=== PATIENT | female | born 1965 | race Caucasian/White ===

== ENCOUNTER 2018-02-10 14:13 | Emergency (ER) | payer BC, MEDICARE, OTHER ==
[~2018-02-10] VITALS: Ht 165.1 cm; Wt 90.7 kg
[~2018-02-10 14:13] MED LIST: ACHD5005 PO; LVF500T; MYCO500T PO; OXYC-12 PO; PROP1TAB77; TACR1CAP2 PO; TRM50T PO; VENL75TA6 PO
[2018-02-10] MEDS ORDERED: LIDOCAINE 2% 20 ML (XYLOCAINE) VIAL INJ ONE (14:45)
--- NOTE | 2018-02-10 14:46 | ED Upper Extremity ---
General Stated Complaint: RT INDEX FINGER LACERATION Source: patient Exam Limitations: no limitations History of Present Illness Date Seen by Provider: Feb 10, 2018 Time Seen by Provider: 14:43 Initial Comments to ER with a laceration to the right pointer finger. She is building a deck and she tripped and fell while carrying a board. She smashed the tip of the right pointer finger in doing this. Onset: just prior to arrival Pain/Injury Location: right 2nd finger Method of Injury: fell Modifying Factors: Worse With Movement Allergies and Home Medications Allergies Coded Allergies: gentamicin (Verified Allergy, Mild, 02/10/18) morphine (Verified Allergy, Mild, 02/10/18) Uncoded Allergies: [id number] (SULFA (SULFONAMIDE ANTIBIOTICS)) (Allergy, Mild, 10/10/09) Home Medications Hydrocodone Bit/Acetaminophen 1 Tab Tablet, 1-2 TAB PO Q6H FOR PAIN Prescribed by: WILLIE FULLER on 06/10/13 0720 Mycophenolate Mofetil 500 Mg Tablet, 500 MG PO BID, (Reported) Tacrolimus Anhydrous 1 Mg Capsule, 2 MG PO BID, (Reported) Tramadol Hcl 50 Mg Tab, 50 MG PO Q4-6HOURS PRN FOR PAIN Prescribed by: WILLIE FULLER on 06/10/13 0720 Venlafaxine Hcl 75 Mg Tablet, 75 MG PO BID, (Reported) Patient Home Medication List Home Medication List Reviewed: Yes Constitutional: see HPI EENTM: see HPI Respiratory: no symptoms reported Cardiovascular: no symptoms reported Genitourinary: no symptoms reported Musculoskeletal: see HPI Skin: no symptoms reported Psychiatric/Neurological: No Symptoms Reported Past [id number]-Cufebl Hx Patient Social History Recent Foreign Travel: No Contact w/Someone Who Travel: No Past Medical History 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 Renal Failure Degenerate Disk Disease, Chronic Back Pain Skin Physical Exam Vital Signs Vital Signs - First Documented 02/10/18 14:35 Temp 98.0 Pulse 163 Resp 14 B/P (MAP) 182/114 (136) Pulse Ox 93 Capillary Refill : General Appearance: WD/WN, no apparent distress HEENT: PERRL/EOMI, normal ENT inspection Neck: non-tender, full range of motion Respiratory: normal breath sounds, no respiratory distress, no accessory muscle use Gastrointestinal: normal bowel sounds, non tender Shoulder: normal inspection, non-tender Elbow/Forearm: normal inspection, non-tender Wrist: Yes normal inspection, Yes non-tender Hand: laceration (there is a 1 cm laceration to the radial side of the right pointer finger looks like a crush injury.) Neurologic/Tendon: normal sensation, normal motor functions Neurologic/Psychiatric: alert, normal mood/affect, oriented x 3 Skin: normal color, warm/dry Procedures/Interventions Wound Location: Upper Extremities Wound Length (cm): 1 Wound's Depth, Shape: linear, sub Q Wound Explored: clean Anesthesia: 1% Lidocaine Volume Anesthetic (ccs): 2 Suture: Ethlion Suture Size: 5-0 Number of Sutures: 3 Layer Closure?: 1 Progress Anesthetized locally with 2% lidocaine without epinephrine Wound scrubbed with chlorhexidine/saline solution. The paronychia was sutured back to the nail using 3 simple interrupted sutures size 5-0 Ethilon. Progress/Results/Core Measures Results/Orders My Orders Orders - CHRISSIE MATTHEWS APRN Finger(S) (02/10/18 14:42) Lidocaine 2% Injection 20 Ml (Xylocaine (02/10/18 14:45) Vital Signs/I&O 02/10/18 14:35 Temp 98.0 Pulse 163 Resp 14 B/P (MAP) 182/114 (136) Pulse Ox 93 Departure Communication (Admissions) she has a peritoneal dialysis patient on immunosuppressants for prior renal transplant. Her with antibiotics prophylactically. Impression Primary Impression: Finger laceration Disposition: 01 HOME, SELF-CARE Condition: Stable Departure-Patient Inst. Decision time for Depature: 15:42 Referrals: [facility] (PCP) Primary Care Physician Patient Instructions: Laceration Repair With Stitches (DC) Add. Discharge Instructions: 11. Return to [facility] 10 days to have the stitches removed. Antibiotics as directed. Scripts Cephalexin (Keflex) 500 Mg Capsule 500 MG PO Q6H, #20 CAP Prov: CHRISSIE MATTHEWS APRN 02/10/18 Images Extremities-Upper 1 - CHRISSIE MATTHEWS APRN Feb 10, 2018 14:46
--- NOTE | 2018-02-10 15:38 | Diagnostic Imaging Report ---
INDICATION: Injury to right second finger. AP, oblique, lateral views of the right second finger are obtained. No fracture or radiopaque foreign body seen. IMPRESSION: Negative right second finger. Dictated by: Dictated on workstation # [id number]
[2018-02-10] MEDS ORDERED: CEPH-507 PO (15:47)
[2018-02-10] MEDS ORDERED: TETANUS,DIPTH,PERTUSS P/F (BOOSTRIX) 0.5 ML VIAL IM ONE ×2 (15:48→16:00)
[2018-02-10 15:53] VITALS: BP 162/71
== END 2018-02-10 15:53 | disposition home or self-care (01) ==
LOC: EDUNIT# 14:13 → ER 14:15
DX: S61.210A Laceration without foreign body of right index finger without damage to nail, initial encounter (principal); Z88.1 Allergy status to other antibiotic agents; Z88.5 Allergy status to narcotic agent; W18.09XA Striking against other object with subsequent fall, initial encounter; W23.0XXA Caught, crushed, jammed, or pinched between moving objects, initial encounter
CPT/HCPCS: 12041; 73140; 90471; 90715

== ENCOUNTER 2018-03-25 09:29 | Emergency (ER) | payer BC, MEDICARE ==
[~2018-03-25] VITALS: Ht 165.1 cm; Wt 90.7 kg
[~2018-03-25 09:29] MED LIST changes: +CEPH-507 PO
--- OUTSIDE RECORDS SUMMARY | 2018-03-25 09:35 | XMS REPORT | Clinical Summary ---
Author Author [facility] Address Unknown Phone Unavailable Care Team Providers Care Verification Clerk Name Role Phone Brent Jarvis MD Unavailable Jessica Portillo RN Unavailable Unavailable Luz Elena Mireles RN Unavailable Unavailable Yolie Chaves MD Unavailable Phu Luevano MD Unavailable Unavailable Monet Samayoa Unavailable Unavailable Lorene Wheat RN Unavailable Unavailable Eligio Antonio MD PCP Layne Lynn MD Unavailable Laura Gamble RN Unavailable Lucia Marmolejo RN Unavailable Kira Lua MD Unavailable Michelle Kent RN Unavailable Paula Morris Unavailable Unavailable Sadaf Carty Unavailable Unavailable Manuela Urias LPN Unavailable Unavailable Yamilet Don Unavailable Unavailable Jaya Villanueva RN Unavailable Annel Sanchez Unavailable Unavailable Lorene Salvador RN Unavailable Unavailable Lennie Espinal Unavailable Bhumika Guillen MD Unavailable Meagan Santos Unavailable Unavailable Alicia Manrique ENGINEERING MODEL MAKER Unavailable Source Comments Some departments are not documenting in the electronic medical record. If you do not see the information that you expected, contact Release of Information in the Health Information Management department at [phone] for further assistance in locating additional records.[facility] Allergies Active Allergy Reactions Severity Noted Date Comments Morphine AGITATION Low 10/16/2015 Sulfa (Sulfonamide RASH High 01/10/2006 Antibiotics) Vancomycin RASH 01/09/2007 Current Medications Prescription Sig. Disp. Refills Start End Date Status Date albuterol (PROAIR HFA) 90 Inhale 2 Puffs by mouth Active mcg/Actuation inhaler Every 6 Hours as needed for Wheezing. tacrolimus XL (ASTAGRAF Take 5 capsules by mouth 180 capsule 11 Active XL) 1 mg daily. 17 capsuleIndications: Kidney replaced by transplant, Encounter for long-term (current) use of high-risk medication carvedilol (COREG) 25 mg Take 25 mg by mouth twice Active tablet daily with meals. Take with food. mycophenolate mofetil Take 500 mg by mouth Active (CELLCEPT) 500 mg tablet twice daily. Take on an empty stomach. ferrous gluconate 324 mg Take 1 tablet by mouth 30 tablet 5 10/13/19 Active (36 mg iron) daily. 18 tabIndications: Iron Deficiency Anemia venlafaxine XR (EFFEXOR Take 150 mg by mouth Active XR) 150 mg capsule daily. Take with food. tiotropium (SPIRIVA WITH Place 18 mcg into inhaler Active HANDIHALER) 18 mcg and inhale into lungs as capsule for inhaler directed daily. calcitriol (ROCALTROL) Take 0.25 mcg by mouth Active 0.25 mcg capsule daily. lisinopril (PRINIVIL, Take 40 mg by mouth Active ZESTRIL) 40 mg tablet daily. amLODIPine (NORVASC) 5 mg Take 5 mg by mouth daily. Active tablet spironolactone Take 100 mg by mouth Active (ALDACTONE) 100 mg tablet daily. Take with food. Active Problems Problem Noted Date UTI (urinary tract infection) 06/11/2017 ANNETTE (acute kidney injury) ([facility]) 06/11/2017 Immunosuppression ([facility]) 04/14/2016 Proteinuria 04/14/2016 Mixed hyperlipidemia 04/14/2016 Chronic congestion of paranasal sinus 04/14/2016 Chronic bronchitis (HCC) 04/14/2016 Chronic rejection of kidney transplant 07/03/2015 Kidney replaced by transplant 07/03/2015 Encounters Date Type Specialty Care Team Description 03/16/2018 Pharmacy Visit 02/21/2018 Ancillary Radiology Outpatient, Radiologist Diagnosis unknown Orders 02/15/2018 Hospital Radiology Encounter 02/06/2018 Telephone Transplant Surgery Jenna Mireles RN Kidney Evaluation 01/31/2018 Telephone Transplant Surgery Jenna Mireles RN Kidney Evaluation 01/27/2018 Telephone Transplant Surgery Jenna Mrieles RN Kidney Evaluation 2018 Telephone Transplant Surgery Marcela Shell Financial/Insurance Questions (Financial Assessment) 01/16/2018 Hospital Lab Bhumika Guillen MD End stage renal disease Encounter (HCC) 01/16/2018 Transplant Transplant Surgery Vince Kim MD Pre- transplant evaluation Evaluation for kidney transplant (Primary Dx) 01/16/2018 Transplant Transplant Surgery Vince Kim MD Pre- transplant evaluation Evaluation Bhumika Guillen MD for end stage renal disease (Primary Dx); Chronic kidney disease, stage V (HCC); ESRD (end stage renal disease) ([facility]); 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, unspecified whether keno terminal operator insulin use (HCC); Screening for HIV (human immunodeficiency virus) 01/16/2018 Telephone Transplant Surgery Marcela Shell Financial/Insurance Questions (Financial Consult) 01/13/2018 Telephone Transplant Surgery Sadaf Huang RN Kidney Recipient Referral from Last 3 Months Social History Tobacco Use Types Packs/Day Years Used Date Current Every Day Smoker Cigarettes 0.5 30 Started: 06/12/1985 Smokeless Tobacco: Current User Alcohol Use Drinks/Week oz/Week Comments Yes 0 Standard 0.0 occassional drinks or equivalent Sex Assigned at Date Recorded Not on file Last Filed Vital Signs Vital Sign Reading Time Taken Blood Pressure 152/89 01/16/2018 12:18 PM CDT Pulse 74 01/16/2018 12:18 PM CDT Temperature 36.7 C (98.1 F) 01/16/2018 12:15 PM CDT Respiratory Rate 16 10/06/2016 8:39 AM DIRECTOR DIABETES Oxygen Saturation 96% 01/16/2018 12:15 PM CDT Inhaled Oxygen - - Concentration Weight 73.8 kg (162 lb 11.2 oz) 01/16/2018 12:15 PM CDT Height 165.1 cm (5' 5") 01/16/2018 12:15 PM CDT Body Mass Index 27.07 01/16/2018 12:15 PM CDT Plan of Treatment Health Maintenance Due Date Last Done Comments PHYSICAL (COMPREHENSIVE) 1973 EXAM PERTUSSIS VACCINE 1977 TETANUS VACCINE 1983 DILATED EYE EXAM 01/18/1984 FOOT EXAM 01/18/1984 PNEUMONIA VACCINE (DM) 01/18/1984 CERVICAL CANCER SCREENING 01/18/1996 BREAST CANCER SCREENING 2006 COLORECTAL CANCER 01/18/2016 SCREENING SHINGLES RECOMBINANT 01/18/2016 VACCINE (1 of 2) INFLUENZA VACCINE 06/05/2018 HBA1C 07/19/2018 01/16/2018, 10/13/2017, 09/12/2012 HIV SCREENING Completed 01/16/2018 Results * GENERAL RAD CHEST EXTERNAL IMAGING (02/15/2018) Narrative This order has been auto finalized and does not contain a result. * BLOOD TYPE CONFIRMATION - ORDER ONLY IF REQUESTED BY LAB (01/16/2018 3:41 PM) Component Value Ref Range ABO/RH(D) A POS Antigen Information A1 antigen Pos, Specimen Performing Laboratory Blood MAIN LAB [address] [place] [id number] * ABO/RH(D) (01/16/2018 3:30 PM) Component Value Ref Range ABO/RH(D) A POS Antigen Information A1 antigen Pos, Specimen Performing Laboratory Blood MAIN LAB [address] [place] [address] * URINALYSIS, MICROSCOPIC (01/16/2018 3:30 PM) Component Value Ref Range WBCs,UA 2-10 0 - 2 /HPF RBCs,UA 2-10 0 - 3 /HPF MucousUA TRACE Squamous Epithelial Cells 5-10 0 - 5 Specimen Performing Laboratory Urine MAIN LAB [address] [place] [address] * URINALYSIS DIPSTICK (01/16/2018 3:30 PM) Component Value Ref Range Color,UA YELLOW Turbidity,UA CLEAR CLEAR-CLEAR Specific [place]-Urine 1.011 1.003 - 1.035 pH,UA 8.0 5.0 - 8.0 Protein,UA 2+ (A) NEG-NEG Glucose,UA 1+ (A) NEG-NEG Ketones,UA NEG NEG-NEG Bilirubin,UA NEG NEG-NEG Blood,UA NEG NEG-NEG Urobilinogen,UA NORMAL NORM-NORMAL Nitrite,UA NEG NEG-NEG Leukocytes,UA NEG NEG-NEG Urine Ascorbic Acid, UA NEG NEG-NEG Specimen Performing Laboratory Urine MAIN LAB [address] [place] [address] * PHENCYCLIDINES-URINE RANDOM (01/16/2018 3:30 PM) Component Value Ref Range Phencyclidine (PCP) NEG NEG-NEG Comment: RESULTS WERE OBTAINED BY IMMUNOASSAY AND ARE PRESUMPTIVE ONLY. POSITIVE INDICATES THE PRESENCE OF SUBSTANCE WITH CHARACTERISTICS SIMILAR TO DRUG-DRUG CLASS OR METABOLITE IN CONC. EQUAL TO OR EXCEEDING VALUES LISTED. PHENCYCLIDINE (PCP)25 NG/ML Specimen Performing Laboratory Urine [facility] LAB [address] [place] [address] * OPIATES-URINE RANDOM (01/16/2018 3:30 PM) Component Value Ref Range Opiates-Urine NEG NEG-NEG Comment: RESULTS WERE OBTAINED BY IMMUNOASSAY AND ARE PRESUMPTIVE ONLY. POSITIVE INDICATES THE PRESENCE OF SUBSTANCE WITH CHARACTERISTICS SIMILAR TO DRUG-DRUG CLASS OR METABOLITE IN CONC. EQUAL TO OR EXCEEDING VALUES LISTED. [id number] NG/ML Specimen Performing Laboratory Urine [facility] LAB [address] [place] [phone] * COCAINE-URINE RANDOM (01/16/2018 3:30 PM) Component Value Ref Range Cocaine-Urine NEG NEG-NEG Comment: RESULTS WERE OBTAINED BY IMMUNOASSAY AND ARE PRESUMPTIVE ONLY. POSITIVE INDICATES THE PRESENCE OF SUBSTANCE WITH CHARACTERISTICS SIMILAR TO DRUG-DRUG CLASS OR METABOLITE IN CONC. EQUAL TO OR EXCEEDING VALUES LISTED. COCAINE 300 NG/ML Specimen Performing Laboratory Urine [facility] LAB [address] [place] [id number] * CANNABINOIDS-URINE RANDOM (01/16/2018 3:30 PM) Component Value Ref Range THC NEG NEG-NEG Comment: RESULTS WERE OBTAINED BY IMMUNOASSAY AND ARE PRESUMPTIVE ONLY. POSITIVE INDICATES THE PRESENCE OF SUBSTANCE WITH CHARACTERISTICS SIMILAR TO DRUG-DRUG CLASS OR METABOLITE IN CONC. EQUAL TO OR EXCEEDING VALUES LISTED. [id number] NG/ML Specimen Performing Laboratory Urine [facility] LAB [address] [place] [address] * BENZODIAZEPINES-URINE RANDOM (01/16/2018 3:30 PM) Component Value Ref Range Benzodiazepines NEG NEG-NEG Comment: RESULTS WERE OBTAINED BY IMMUNOASSAY AND ARE PRESUMPTIVE ONLY. POSITIVE INDICATES THE PRESENCE OF SUBSTANCE WITH CHARACTERISTICS SIMILAR TO DRUG-DRUG CLASS OR METABOLITE IN CONC. EQUAL TO OR EXCEEDING VALUES LISTED. BENZODIAZEPINES 200 NG/ML Specimen Performing Laboratory Urine [facility] LAB [address] [place] [address] * BARBITURATES-URINE RANDOM (01/16/2018 3:30 PM) Component Value Ref Range Barbiturates,Urine NEG NEG-NEG Comment: RESULTS WERE OBTAINED BY IMMUNOASSAY AND ARE PRESUMPTIVE ONLY. POSITIVE INDICATES THE PRESENCE OF SUBSTANCE WITH CHARACTERISTICS SIMILAR TO DRUG-DRUG CLASS OR METABOLITE IN CONC. EQUAL TO OR EXCEEDING VALUES LISTED. [id number] NG/ML Specimen Performing Laboratory Urine [address] [address] * AMPHETAMINES-URINE RANDOM (01/16/2018 3:30 PM) Component Value Ref Range Amphetamines NEG NEG-NEG Comment: RESULTS WERE OBTAINED BY IMMUNOASSAY AND ARE PRESUMPTIVE ONLY. POSITIVE INDICATES THE PRESENCE OF SUBSTANCE WITH CHARACTERISTICS SIMILAR TO DRUG-DRUG CLASS OR METABOLITE IN CONC. EQUAL TO OR EXCEEDING VALUES LISTED. AMPHETAMINES 1000 NG/ML Specimen Performing Laboratory Urine [address] [address] * HIV-1/2 ANTIGEN/ANTIBODY SCREEN (01/16/2018 3:29 PM) Component Value Ref Range HIV 1 and 2 AG AB Screen NEG NEG-NEG Specimen Performing Laboratory Blood [address] [address] * SYPHILIS AB SCREEN (01/16/2018 3:29 PM) Component Value Ref Range Syphilis AB, Total NEG NEG-NEG Comment: Negative EIA: Negative results indicate no past or present syphilis infection. Early infection can not be excluded. Specimen Performing Laboratory Blood [address] [address] * HSV I/II GLYCOPROTEIN G AB (01/16/2018 3:29 PM) Component Value Ref Range HSV Type 1 IgG POS (A) NEG-NEG HSV Type 2 IgG NEG NEG-NEG Specimen Performing Laboratory Blood [address] [address] * HEPATITIS C AB (01/16/2018 3:29 PM) Component Value Ref Range Anti HCV NEG NEG-NEG Specimen Performing Laboratory Blood [address] [address] * HEPATITIS B CORE AB TOT (IGG+IGM) (01/16/2018 3:29 PM) Component Value Ref Range Anti HBc Total NEG Specimen Performing Laboratory Blood MAIN LAB [address] [place] [address] * HEPATITIS B SURFACE AG (01/16/2018 3:29 PM) Component Value Ref Range HBsAg NEG NEG-NEG Specimen Performing Laboratory Blood MAIN LAB [address] [place] [address] * HEPATITIS B SURFACE AB (01/16/2018 3:29 PM) Component Value Ref Range Anti HBs <2.5 mIU/ml Comment: Hepatitis B Surface Antibody Reference Ranges >12.0 Positive 8.0-12.0Equivocal <8.0Negative Specimen Performing Laboratory Blood MAIN LAB [address] [place] [address] * MARIAELENA KHAN PANEL(EBV) (01/16/2018 3:29 PM) Component Value Ref Range EBV Capsid IgG POS EBV Nuclear Ag,Ab NEG EBV Early Ag,Ab NEG EBV Capsid IgM NEG NEG-NEG Specimen Performing Laboratory Blood MAIN LAB [address] [place] [address] * CMV AB IGM (01/16/2018 3:29 PM) Component Value Ref Range CMV, IgM NEG NEG-NEG Specimen Performing Laboratory Blood MAIN LAB [address] [place] [address] * CMV AB IGG (01/16/2018 3:29 PM) Component Value Ref Range CMV, IgG NEG Specimen Performing Laboratory Blood MAIN LAB [address] [place] [address] * PROTIME INR (PT) (01/16/2018 3:29 PM) Component Value Ref Range INR 1.1 0.8 - 1.2 Specimen Performing Laboratory Blood MAIN LAB [address] [place] [address] * CBC AND DIFF (01/16/2018 3:29 PM) Component Value Ref Range White Blood Cells 9.1 4.5 - 11.0 K/UL RBC 3.10 (L) 4.0 - 5.0 M/UL Hemoglobin 9.5 (L) 12.0 - 15.0 GM/DL Hematocrit 28.4 (L) 36 - 45 % MCV 91.5 80 - 100 FL MCH 30.8 26 - 34 PG MCHC 33.6 32.0 - 36.0 G/DL RDW 17.1 (H) 11 - 15 % Platelet Count 224 150 - 400 K/UL MPV 6.9 (L) 7 - 11 FL Neutrophils 62 41 - 77 % Lymphocytes 20 (L) 24 - 44 % Monocytes 8 4 - 12 % Eosinophils 9 (H) 0 - 5 % Basophils 1 0 - 2 % Absolute Neutrophil Count 5.70 1.8 - 7.0 K/UL Absolute Lymph Count 1.80 1.0 - 4.8 K/UL Absolute Monocyte Count 0.70 0 - 0.80 K/UL Absolute Eosinophil Count 0.80 (H) 0 - 0.45 K/UL Absolute Basophil Count 0.00 0 - 0.20 K/UL Specimen Performing Laboratory Blood MAIN LAB [address] [place] [address] * PHOSPHORUS (01/16/2018 3:29 PM) Component Value Ref Range Phosphorus 9.7 (H) 2.0 - 4.0 MG/DL Specimen Performing Laboratory Blood MAIN LAB [address] [place] [address] * HEMOGLOBIN A1C (01/16/2018 3:29 PM) Component Value Ref Range Hemoglobin A1C 5.3 4.0 - 6.0 % Comment: The ADA recommends that most patients with type 1 and type 2 diabetes maintain an A1c level <7%. Specimen Performing Laboratory Blood MAIN LAB [address] [place] [address] * COMPREHENSIVE METABOLIC PANEL (01/16/2018 3:29 PM) Component Value Ref Range Sodium 141 137 - 147 MMOL/L Potassium 4.9 3.5 - 5.1 MMOL/L Chloride 102 98 - 110 MMOL/L Glucose 84 70 - 100 MG/DL Blood Urea Nitrogen 52 (H) 7 - 25 MG/DL Creatinine 13.79 (H) 0.4 - 1.00 MG/DL Calcium 10.1 8.5 - 10.6 MG/DL Total Protein 7.1 6.0 - 8.0 G/DL Total Bilirubin 0.3 0.3 - 1.2 MG/DL Albumin 3.8 3.5 - 5.0 G/DL Alk Phosphatase 71 25 - 110 U/L AST (SGOT) 9 7 - 40 U/L CO2 25 21 - 30 MMOL/L ALT (SGPT) 6 (L) 7 - 56 U/L Anion Gap 14 (H) 3 - 12 eGFR Non 3 (L) >60 mL/min Comment: The eGFR is not validated for use in drug dosing adjustments.Continue to use estimated creatinine clearance per dosing reference text.Please contact the Clinical Pharmacist for questions. eGFR 3 (L) >60 mL/min Comment: The eGFR is not validated for use in drug dosing adjustments.Continue to use estimated creatinine clearance per dosing reference text.Please contact the Clinical Pharmacist for questions. Specimen Performing Laboratory Blood [facility] MAIN [facility] [address] [place] [address] * PROTEIN/CR RATIO,UR RAN (01/16/2018 3:28 PM) Component Value Ref Range Protein, Random 272 MG/DL Creatinine, Random 84 MG/DL Protein/CR ratio 3.2 Specimen Performing Laboratory Urine [facility] MAIN [facility] [address] [place] [address] from Last 3 Months
--- OUTSIDE RECORDS SUMMARY | 2018-03-25 09:36 | XMS REPORT | Encounter Summary ---
Author Author [facility] Organization [facility] Address Unknown Phone Unavailable Care Team Providers Care Laborer Pole Crew Name Role Phone Brent Jarvis MD Unavailable [...] Unavailable Meagan Santos Unavailable Unavailable Alicia Manrique MUSIC CRITIC Unavailable Encounter Details Date Type Department Care Team Description 03/16/2018 Pharmacy Visit Call Center Pharmacy [id number] [place] [address] Social History Tobacco Use Types Packs/Day Years Used Date Current Every Day Smoker Cigarettes 0.5 30 Started: 06/12/1985 Smokeless Tobacco: Current User Alcohol Use Drinks/Week oz/Week Comments Yes 0 Standard 0.0 occassional drinks or equivalent Sex Assigned at Date Recorded Not on file as of this encounter Functional Status Functional Status Response Date of Assessment Does the patient have a hearing impairment: No 01/16/2018 Does the patient have a visual impairment: Yes 01/16/2018 Does the patient have impaired ambulation: No 01/16/2018 Does the patient have an activity of daily living No 01/16/2018 (ADL) impairment: Does the patient have an instrumental activity of No 01/16/2018 daily living (IADL) impairment: Cognitive Status Response Date of Assessment Does the patient have a cognitive impairment: No 01/16/2018 as of this encounter Plan of Treatment Not on fileas of this encounter Visit Diagnoses Not on filein this encounter
--- OUTSIDE RECORDS SUMMARY | 2018-03-25 09:36 | XMS REPORT | Encounter Summary ---
Author Author [facility] Organization [facility] Address Unknown Phone Unavailable Care Team Providers Care Folding Machine Feeder Name Role Phone Brent Jarvis MD Unavailable [...] Unavailable Meagan Santos Unavailable Unavailable Alicia Manrique SAND MOLDER Unavailable Reason for Visit * Reason Comments Kidney Evaluation Encounter Details Date Type Department Care Team Description 01/31/2018 Telephone Center for Jenna Mireles RN Kidney Evaluation Transplantation-Kidney/Pa [facility] [address] [place] [address] Social History Tobacco Use Types Packs/Day Years [...] impairment: No 01/16/2018 as of this encounter Miscellaneous Notes * Telephone Encounter - Jenna Mireles RN - 01/31/2018 8:51 AM CDT Left a message for a return phone call in this encounter Plan of Treatment Not on fileas of this encounter Visit Diagnoses Not on filein this encounter
--- OUTSIDE RECORDS SUMMARY | 2018-03-25 09:36 | XMS REPORT | Encounter Summary ---
Author Author [facility] Organization [facility] Address Unknown Phone Unavailable Care Team Providers Care Grinder Set Up Operator Jig Name Role Phone Brent Jarvis MD Unavailable [...] Unavailable Meagan Santos Unavailable Unavailable Alicia Manrique DENTAL INSTRUMENT MAKER Unavailable Reason for Visit * Reason Comments Kidney Evaluation Encounter Details Date Type Department Care Team Description 02/06/2018 Telephone Center for Jenna Mireles RN Kidney Evaluation Transplantation-Kidney/Pa [facility] [address] [place] [address] Social History Tobacco Use Types Packs/Day Years [...] Telephone Encounter - Jenna Mireles RN - 02/06/2018 2:06 PM CDT Called and reviewed with the patient about the testing she needs to complete for her kidney evaluation. I told her that I faxed over her CT, Chest xray and echo to [facility]. She knows she needs to call them to schedule those. Also she knows to reach out to her primary care physician to schedule her mammo and colonscopy. Also she needs to see the dentist to get her dental clearance. She says her neurocog testing is scheduled. Will follow up with the patient to make sure testing is being scheduled and completed in a timely manner. in this encounter Plan of Treatment Not on fileas of this encounter Visit Diagnoses Not on filein this encounter
--- OUTSIDE RECORDS SUMMARY | 2018-03-25 09:36 | XMS REPORT | Encounter Summary ---
Author Author [facility] Organization [facility] Address Unknown Phone Unavailable Care Team Providers Care Desulphurizer Operator Name Role Phone Brent Jarvis MD Unavailable [...] Unavailable Meagan Santos Unavailable Unavailable Alicia Manrique SUPERINTENDENT TRANSPORTATION Unavailable Encounter Details Date Type Department Care Team Description 02/21/2018 Ancillary Rad Outpatient, Radiologist Diagnosis unknown Orders [address] [place] [address] Social History Tobacco Use Types Packs/Day Years [...] Treatment Not on fileas of this encounter Results * GENERAL RAD CHEST EXTERNAL IMAGING (02/15/2018) Narrative This order has been auto finalized and does not contain a result. * CT ABD/PEL EXTERNAL IMAGING (12/16/2017) Narrative This order has been auto finalized and does not contain a result. in this encounter Visit Diagnoses Diagnosis Diagnosis unknown Other unknown and unspecified cause of morbidity or mortality
--- OUTSIDE RECORDS SUMMARY | 2018-03-25 09:36 | XMS REPORT | Encounter Summary ---
Author Author [facility] Organization [facility] Address Unknown Phone Unavailable Care Team Providers Care Research Anthropologist Name Role Phone Brent Jarvis MD Unavailable Jessica Portillo RN Unavailable Unavailable Luz Elena Mireles RN Unavailable Unavailable Yolie Chaves MD Unavailable hPu Luevano MD Unavailable Unavailable Monet Samayoa Unavailable [...] Unavailable Meagan Santos Unavailable Unavailable Alicia Manrique CANDY PULLER Unavailable Reason for Referral * Radiology Services Status Reason Specialty Diagnoses / Referred By Referred To Procedures Contact Contact New Request Radiology Diagnoses Bhumika Guillen MD ESRD (end stage [address] disease[address] ([facility]) [place] [address] Pre[place] [address] end stage renal Phone: disease [phone] P Fax: [facility] [phone] CT ABD/PELV WO CONTRAST * Test Status Reason Specialty Diagnoses / Referred By Referred To Procedures Contact Contact New Request Diagnoses Bhumika Guillen MD ESRD (end stage [address] ([facility]) [place] [address] Pre[place] [address] end stage renal Phone: disease [phone] P Fax: [facility] [phone] 2-D + DOPPLER ECHOCARDIOGRAM Reason for Visit * Reason Comments Kidney Evaluation Encounter Details Date Type Department Care Team Description 01/27/2018 Telephone Center for Jenna Mireles RN Kidney Evaluation Transplantation-Kidney/Pa [facility] 1st fl [address] [place] [address] Social History Tobacco Use Types Packs/Day Years [...] as of this encounter Plan of Treatment Name Priority Associated Diagnoses Order Schedule 2-D + DOPPLER ECHOCARDIOGRAM Routine ESRD (end stage renal Expected: , disease) ([facility]) Expires: 01/27/2019 Pre-transplant evaluation for end stage renal disease CT ABD/PELV WO CONTRAST Routine ESRD (end stage renal Expected: 2017 disease) ([facility]) (Approximate), Expires: Pre-transplant evaluation 01/27/2019 for end stage renal disease CHEST 2 VIEWS Routine ESRD (end stage renal Expected: 01/27/2018 disease) ([facility]) (Approximate), Expires: Pre-transplant evaluation 01/27/2019 for end stage renal disease as of this encounter Visit Diagnoses Diagnosis ESRD (end stage renal disease) ([facility]) - Primary End stage renal disease Pre-transplant evaluation for end stage renal disease Other specified pre-operative examination
--- OUTSIDE RECORDS SUMMARY | 2018-03-25 09:36 | XMS REPORT | Encounter Summary ---
Author Author [facility] Organization [facility] Address Unknown Phone Unavailable Care Team Providers Care Plasma Processing Centrifuge Operator Name Role Phone Brent Jarvis MD [...] Unavailable Meagan Santos Unavailable Unavailable Alicia Manrique PIGMENT SUPPLIER Unavailable Encounter Details Date Type Department Care Team Description 01/16/2018 Hospital ClinBhumika Guzman MD End stage renal disease Encounter [facility] [address] fl [address] (HCC) [address] [place] [address] [place] [address] [phone] Social History Tobacco Use Types Packs/Day Years [...] impairment: No 01/16/2018 as of this encounter Medications at Time of Discharge Medication Sig. Disp. Refills Start Date End Date albuterol (PROAIR HFA) 90 Inhale 2 Puffs by mouth mcg/Actuation inhaler Every 6 Hours as needed for Wheezing. amLODIPine (NORVASC) 5 mg Take 5 mg by mouth daily. tablet calcitriol (ROCALTROL) Take 0.25 mcg by mouth 0.25 mcg capsule daily. carvedilol (COREG) 25 mg Take 25 mg by mouth twice tablet daily with meals. Take with food. ferrous gluconate 324 mg Take 1 tablet by mouth 30 tablet 5 2017 (36 mg iron) daily. tabIndications: Iron Deficiency Anemia lisinopril (PRINIVIL, Take 40 mg by mouth ZESTRIL) 40 mg tablet daily. mycophenolate mofetil Take 500 mg by mouth (CELLCEPT) 500 mg tablet twice daily. Take on an empty stomach. spironolactone Take 100 mg by mouth (ALDACTONE) 100 mg tablet daily. Take with food. tacrolimus XL (ASTAGRAF Take 5 capsules by mouth 180 capsule 11 2016 XL) 1 mg daily. capsuleIndications: Kidney replaced by transplant, Encounter for long-term (current) use of high-risk medication tiotropium (SPIRIVA WITH Place 18 mcg into inhaler HANDIHALER) 18 mcg and inhale into lungs as capsule for inhaler directed daily. venlafaxine XR (EFFEXOR Take 150 mg by mouth XR) 150 mg capsule daily. Take with food. as of this encounter Plan of Treatment Name Priority Associated Diagnoses Date/Time RED TOP TUBE FOR MTN TRANSPLANT Routine ESRD (end stage renal 2017 3:29 PM CDT disease) ([facility]) Pre-transplant evaluation for end stage renal disease LAVENDER (EDTA) TOP TUBE FOR MTN Routine ESRD (end stage renal 2017 3:29 PM CDT TRANSPLANT disease) ([facility]) Pre-transplant evaluation for end stage renal disease as of this encounter Results * BLOOD TYPE CONFIRMATION - ORDER ONLY IF REQUESTED BY LAB (01/16/2018 3:41 PM) Component Value Ref Range ABO/RH(D) A POS Antigen Information A1 antigen Pos, Specimen Performing Laboratory Blood MAIN LAB [address] [place] [address] * URINALYSIS, MICROSCOPIC (01/16/2018 3:30 PM) Component Value Ref Range WBCs,UA 2-10 0 - 2 /HPF RBCs,UA 2-10 0 - 3 /HPF MucousUA TRACE Squamous Epithelial Cells 5-10 0 - 5 Specimen Performing Laboratory Urine MAIN LAB [address] [place] [address] * PHENCYCLIDINES-URINE RANDOM (01/16/2018 3:30 PM) Component Value Ref Range Phencyclidine (PCP) NEG NEG-NEG Comment: RESULTS WERE OBTAINED BY IMMUNOASSAY AND ARE PRESUMPTIVE ONLY. POSITIVE INDICATES THE PRESENCE OF SUBSTANCE WITH CHARACTERISTICS SIMILAR TO DRUG-DRUG CLASS OR METABOLITE IN CONC. EQUAL TO OR EXCEEDING VALUES LISTED. PHENCYCLIDINE (PCP)25 NG/ML Specimen Performing Laboratory Urine MAIN LAB [address] [place] [address] * OPIATES-URINE RANDOM (01/16/2018 3:30 PM) Component Value Ref Range Opiates-Urine NEG NEG-NEG Comment: RESULTS WERE OBTAINED BY IMMUNOASSAY AND ARE PRESUMPTIVE ONLY. POSITIVE INDICATES THE PRESENCE OF SUBSTANCE WITH CHARACTERISTICS SIMILAR TO DRUG-DRUG CLASS OR METABOLITE IN CONC. EQUAL TO OR EXCEEDING VALUES LISTED. [id number] 0 NG/ML Specimen Performing Laboratory Urine [facility] [address] [place] [address] * COCAINE-URINE RANDOM (01/16/2018 3:30 PM) Component Value Ref Range Cocaine-Urine NEG NEG-NEG Comment: RESULTS WERE OBTAINED BY IMMUNOASSAY AND ARE PRESUMPTIVE ONLY. POSITIVE INDICATES THE PRESENCE OF SUBSTANCE WITH CHARACTERISTICS SIMILAR TO DRUG-DRUG CLASS OR METABOLITE IN CONC. EQUAL TO OR EXCEEDING VALUES LISTED. COCAINE 300 NG/ML Specimen Performing Laboratory Urine [facility] [address] [place] [address] * CANNABINOIDS-URINE RANDOM (01/16/2018 3:30 PM) Component Value Ref Range THC NEG NEG-NEG Comment: RESULTS WERE OBTAINED BY IMMUNOASSAY AND ARE PRESUMPTIVE ONLY. POSITIVE INDICATES THE PRESENCE OF SUBSTANCE WITH CHARACTERISTICS SIMILAR TO DRUG-DRUG CLASS OR METABOLITE IN CONC. EQUAL TO OR EXCEEDING VALUES LISTED. [id number] NG/ML Specimen Performing Laboratory Urine [facility] [address] [place] [address] * BENZODIAZEPINES-URINE RANDOM (01/16/2018 3:30 PM) Component Value Ref Range Benzodiazepines NEG NEG-NEG Comment: RESULTS WERE OBTAINED BY IMMUNOASSAY AND ARE PRESUMPTIVE ONLY. POSITIVE INDICATES THE PRESENCE OF SUBSTANCE WITH CHARACTERISTICS SIMILAR TO DRUG-DRUG CLASS OR METABOLITE IN CONC. EQUAL TO OR EXCEEDING VALUES LISTED. BENZODIAZEPINES 200 NG/ML Specimen Performing Laboratory Urine [facility] [address] [place] [address] * BARBITURATES-URINE RANDOM (01/16/2018 3:30 PM) Component Value Ref Range Barbiturates,Urine NEG NEG-NEG Comment: RESULTS WERE OBTAINED BY IMMUNOASSAY AND ARE PRESUMPTIVE ONLY. POSITIVE INDICATES THE PRESENCE OF SUBSTANCE WITH CHARACTERISTICS SIMILAR TO DRUG-DRUG CLASS OR METABOLITE IN CONC. EQUAL TO OR EXCEEDING VALUES LISTED. [id number] NG/ML Specimen Performing Laboratory Urine [facility] [address] [place] [address] * AMPHETAMINES-URINE RANDOM (01/16/2018 3:30 PM) Component Value Ref Range Amphetamines NEG NEG-NEG Comment: RESULTS WERE OBTAINED BY IMMUNOASSAY AND ARE PRESUMPTIVE ONLY. POSITIVE INDICATES THE PRESENCE OF SUBSTANCE WITH CHARACTERISTICS SIMILAR TO DRUG-DRUG CLASS OR METABOLITE IN CONC. EQUAL TO OR EXCEEDING VALUES LISTED. AMPHETAMINES 1000 NG/ML Specimen Performing Laboratory Urine [facility] [address] [place] [address] * URINALYSIS DIPSTICK (01/16/2018 3:30 PM) Component Value Ref Range Color,UA YELLOW Turbidity,UA CLEAR CLEAR-CLEAR Specific [place]-Urine 1.011 1.003 - 1.035 pH,UA 8.0 5.0 - 8.0 Protein,UA 2+ (A) NEG-NEG Glucose,UA 1+ (A) NEG-NEG Ketones,UA NEG NEG-NEG Bilirubin,UA NEG NEG-NEG Blood,UA NEG NEG-NEG Urobilinogen,UA NORMAL NORM-NORMAL Nitrite,UA NEG NEG-NEG Leukocytes,UA NEG NEG-NEG Urine Ascorbic Acid, UA NEG NEG-NEG Specimen Performing Laboratory Urine [place] [id number] * ABO/RH(D) (01/16/2018 3:30 PM) Component Value Ref Range ABO/RH(D) A POS Antigen Information A1 antigen Pos, Specimen Performing Laboratory Blood [place] [id number] * HEMOGLOBIN A1C (01/16/2018 3:29 PM) Component Value Ref Range Hemoglobin A1C 5.3 4.0 - 6.0 % Comment: The ADA recommends that most patients with type 1 and type 2 diabetes maintain an A1c level <7%. Specimen Performing Laboratory Blood [place] [id number] * SYPHILIS AB SCREEN (01/16/2018 3:29 PM) Component Value Ref Range Syphilis AB, Total NEG NEG-NEG Comment: Negative EIA: Negative results indicate no past or present syphilis infection. Early infection can not be excluded. Specimen Performing Laboratory Blood [address] [address] * PROTIME INR (PT) (01/16/2018 3:29 PM) Component Value Ref Range INR 1.1 0.8 - 1.2 Specimen Performing Laboratory Blood [address] [address] * PHOSPHORUS (01/16/2018 3:29 PM) Component Value Ref Range Phosphorus 9.7 (H) 2.0 - 4.0 MG/DL Specimen Performing Laboratory Blood [facility] [address] [place], [place] [id number] * HSV I/II GLYCOPROTEIN G AB (01/16/2018 3:29 PM) Component Value Ref Range HSV Type 1 IgG POS (A) NEG-NEG HSV Type 2 IgG NEG NEG-NEG Specimen Performing Laboratory Blood MAIN LAB [address] [place] [address] * HIV-1/2 ANTIGEN/ANTIBODY SCREEN (01/16/2018 3:29 PM) Component Value Ref Range HIV 1 and 2 AG AB Screen NEG NEG-NEG Specimen Performing Laboratory Blood MAIN LAB [address] [place] [address] * HEPATITIS C AB (01/16/2018 3:29 PM) Component Value Ref Range Anti HCV NEG NEG-NEG Specimen Performing Laboratory Blood MAIN LAB [address] [place] [address] * HEPATITIS B SURFACE AG (01/16/2018 3:29 PM) Component Value Ref Range HBsAg NEG NEG-NEG Specimen Performing Laboratory Blood MAIN LAB [address] [place] [address] * HEPATITIS B SURFACE AB (01/16/2018 3:29 PM) Component Value Ref Range Anti HBs <2.5 mIU/ml Comment: Hepatitis B Surface Antibody Reference Ranges >12.0 Positive 8.0-12.0Equivocal <8.0Negative Specimen Performing Laboratory Blood MAIN LAB [address] [place] [address] * HEPATITIS B CORE AB TOT (IGG+IGM) (01/16/2018 3:29 PM) Component Value Ref Range Anti HBc Total NEG Specimen Performing Laboratory Blood MAIN LAB [address] [place] [address] * MARIAELENA KHAN PANEL(EBV) (01/16/2018 3:29 PM) Component Value Ref Range EBV Capsid IgG POS EBV Nuclear Ag,Ab NEG EBV Early Ag,Ab NEG EBV Capsid IgM NEG NEG-NEG Specimen Performing Laboratory Blood MAIN LAB [address] [place] [address] * COMPREHENSIVE METABOLIC PANEL (01/16/2018 3:29 PM) [...] Pharmacist for questions. Specimen Performing Laboratory Blood MAIN LAB [address] [place] [address] * CMV AB IGM (01/16/2018 3:29 PM) Component Value Ref Range CMV, IgM NEG NEG-NEG Specimen Performing Laboratory Blood MAIN LAB [address] [place] [address] * CMV AB IGG (01/16/2018 3:29 PM) Component Value Ref Range CMV, IgG NEG Specimen Performing Laboratory Blood MAIN LAB [address] [place] [address] * CBC AND DIFF (01/16/2018 3:29 PM) [...] - 0.20 K/UL Specimen Performing Laboratory Blood [facility] [address] [place] [address] * PROTEIN/CR RATIO,UR RAN (01/16/2018 3:28 PM) Component Value Ref Range Protein, Random 272 MG/DL Creatinine, Random 84 MG/DL Protein/CR ratio 3.2 Specimen Performing Laboratory Urine [facility] [address] [place] [address] in this encounter Visit Diagnoses Diagnosis Kidney replaced by transplant ESRD (end stage renal disease) (HCC) End stage renal disease Pre-transplant evaluation for end stage renal disease Other specified pre-operative examination Screening for HIV (human immunodeficiency virus) Special screening examination for other specified viral diseases 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
--- OUTSIDE RECORDS SUMMARY | 2018-03-25 09:36 | XMS REPORT | Encounter Summary ---
Author Author [facility] Organization [facility] Address Unknown Phone Unavailable Care Team Providers Care Service Delivery Consultant Name Role Phone Brent Jarvis MD Unavailable [...] Unavailable Meagan Santos Unavailable Unavailable Alicia Manrique COMPENSATION AND BENEFITS MANAGER Unavailable Encounter Details Date Type Department Care Team Description 02/15/2018 Hospital [facility] Hospital Radiology [facility] 2nd pa [address] [place] [address] Social History Tobacco Use Types Packs/Day Years [...]
--- OUTSIDE RECORDS SUMMARY | 2018-03-25 09:36 | XMS REPORT | Encounter Summary ---
Author Author [facility] Organization [facility] Address Unknown Phone Unavailable Care Team Providers Care Rn Teacher Name Role Phone Brent Jarvis MD Unavailable [...] Unavailable Unavailable Manuela Urias LPN Unavailable Unavailable Yaimlet Don Unavailable Unavailable Jaya Villanueva RN Unavailable Annel Sanchez Unavailable Unavailable Lorene Salvador RN Unavailable Unavailable Lennie Espinal Unavailable Bhumika Guillen MD Unavailable Meagan Santos Unavailable Unavailable Alicia Manrique SPECIAL EVENTS DRIVER Unavailable Reason for Visit * Reason Comments Financial/Insurance Financial Assessment Questions Encounter Details Date Type Department Care Team Description 2018 Telephone Center for Farzaneh Burris Marcela Financial/ Insurance Transplantation-Kidney/Pa Questions (Financial ncreas Nep Assessment) [address] [place] [address] Social History Tobacco Use Types Packs/Day Years [...] encounter Miscellaneous Notes * Telephone Encounter - MoyMarcela Hewitt - 2018 10:27 AM CDT Financial Assessment Financial assessment received, reviewed and have questions regarding her Income and her health insurance premiums. Called patient and left her a message with my contact information and a brief message to give me a call back regarding her financial assessment. 01/17/18 in this encounter Plan of Treatment Not on fileas of this encounter Visit Diagnoses Not on filein this encounter
--- OUTSIDE RECORDS SUMMARY | 2018-03-25 09:37 | XMS REPORT | Continuity of Care Document ---
Author Author [facility] Organization [facility] Address Unknown Phone Unavailable Care Team Providers Care Orthodontic Technician Assistant Name Role Phone NO, LOCAL PHYSICIAN PP Unavailable Insurance Providers Payer Name Policy Number Subscriber Name Relationship Self Pay StanCallie martinbijan Mckenna 01 Self / Same As Patient Advance Directives Directive Response Recorded Date Advance Directives N 06/10/13 5:38am Problems No Known Problems or Medical conditions. Social History History Response Recorded Date/Time Alcohol Use Denies Use 06/10/13 5:38am Recreational Drug Use N 06/10/13 5:38am Allergies, Adverse Reactions, Alerts Allergen Type Severity Reaction Last Updated Morphine Allergy Mild 10/10/09 Gentamicin Allergy Mild 10/10/09 [id number] (SULFA (SULFONAMIDE ANTIBIOTICS)) Allergy Mild 10/10/09 Medications Medication Dose Units Route Sig Qty Days Tramadol HCl (Ultram) 50 Mg PO Q4-6HOURS PRN 20 Acetaminophen/Hydrocodone Bitart (Lorcet 5/325 Mg) 1 - 2 Tab PO Q6H 20 Tacrolimus Anhydrous 2 Mg PO BID Mycophenolate Mofetil (Cellcept (Non-Formulary)) 500 Mg PO BID Venlafaxine Hcl 75 Mg PO BID Oxycodone Hcl/Acetaminophen (Percocet 5-325 Mg Tablet) 1 Each PO Q6H 10 Propoxyphene HCl/Acetaminophen (Darvocet-N 100/650) Levofloxacin (Levaquin Po) Response Recorded Date/Time Status not known Unknown Results No Known Relevant Diagnostic Tests, Laboratory Data and/or Discharge Summary. Encounters Encounter Location Date/Time Departed Emergency [facility] 02/15 5:31am
--- OUTSIDE RECORDS SUMMARY | 2018-03-25 09:37 | XMS REPORT | Encounter Summary ---
Author Author [facility] Organization [facility] Address Unknown Phone Unavailable Care Team Providers Care [employer] Freight Car Cleaner Name Role Phone Brent Jarvis MD Unavailable [...] Unavailable Meagan Santos Unavailable Unavailable Alicia Manrique HOOP FLARING MACHINE OPERATOR Unavailable Reason for Visit * Reason Comments Kidney Recipient Referral Encounter Details Date Type Department Care Team Description 01/13/2018 Telephone Center for Sadaf Huang RN Kidney Recipient Referral Transplantation-Kidney/Pa [facility] 1st fl [address] [place] [address] Social History Tobacco Use Types Packs/Day Years Used Date Current Every Day Smoker Cigarettes 0.5 30 Started: 06/12/1985 Smokeless Tobacco: Current User Alcohol Use Drinks/Week oz/Week Comments Yes 0 Standard 0.0 occassional drinks or equivalent Sex Assigned at Date Recorded Not on file as of this encounter Functional Status Functional Status Response Date of Assessment Does the patient have a hearing impairment: No 10/13/2017 Does the patient have a visual impairment: Yes 10/13/2017 Does the patient have impaired ambulation: No 10/13/2017 Does the patient have an activity of daily living No 10/13/2017 (ADL) impairment: Does the patient have an instrumental activity of No 10/13/2017 daily living (IADL) impairment: Cognitive Status Response Date of Assessment Does the patient have a cognitive impairment: No 10/13/2017 as of this encounter Miscellaneous Notes * Telephone Encounter - Sadaf Huang RN - 01/13/2018 10:50 AM CDT Chart prep for 01/16/18 evaluation; called patient to verify medical history and appointment - she is at a doctor's appointment & will attempt to call her back this afternoon. Attempted to call patient back this afternoon; left message I called with my name and callback number. in this encounter Plan of Treatment Not on fileas of this encounter Visit Diagnoses Not on filein this encounter
--- OUTSIDE RECORDS SUMMARY | 2018-03-25 09:37 | XMS REPORT | Encounter Summary ---
Author Author [facility] Organization [facility] Address Unknown Phone Unavailable Care Team Providers Care Machine Featheredger And Reducer Name Role Phone Brent Jarvis MD Unavailable [...] Unavailable Meagan Santos Unavailable Unavailable Alicia Manrique SCIENTIFIC SOFTWARE ENGINEER Unavailable Reason for Referral * Consult, Test & Treat (Routine) Status Reason Specialty Diagnoses / Referred By Referred To Procedures Contact Contact Closed Specialty Neurology / Diagnoses Layne Lynn MD Spresser, Carrie Services Neuropsychology ESRD (end stage [address] [place], PhD Required renal disease) [facility] [address] ([facility]) [place] [address] Pre-transplant [place], [place] [address] [place] [address] [place] [address] end stage renal Phone: Phone: disease [phone] Fax: * Test Status Reason Specialty Diagnoses / Referred By Referred To Procedures Contact Contact New Request Cardiology Diagnoses Bhumika Guillen MD [facility] ESRD (end stage [address] [facility] renal disease) [place] [address] ([facility]) [place] [address] [place]transplant [place], [place] [address] end stage renal Phone: Phone: disease [phone] P Fax: rocedures [phone] 2-D + DOPPLER ECHOCARDIOGRAM Reason for Visit * Reason Comments Kidney Evaluation * Transplant (Routine) Status Reason Specialty Diagnoses / Referred By Referred To Procedures Contact Contact No Auth Needed Specialty Transplant Surgery Diagnoses Michelle Richards, [facility] [facility] Chronic kidney Nephrology Cl Required disease, stage V [address] ([facility]) [place], [place] [address] [address] [place], [place] Phone: [phone] Phone: Encounter Details Date Type Department Care Team Description 01/16/2018 Transplant Center for [facility], Vince Avalos MD Pre-transplant evaluation Evaluation Transplantation-Kidney/Pa [address] [facility] for end stage renal ncreas Nep [place] [address] disease (Primary Dx); [address] [address] Chronic kidney disease, [address] [phone] stage V ([facility]); [place] [address] ESRD (end stage renal [phone] I disease) ([facility]); Bhumika oakley MD Controlled type [address] diabetes mellitus with [place] [address] [place] [address] complication, unspecified [phone] whether long-term insulin use ([facility]); Screening for HIV (human immunodeficiency virus) Social History Tobacco Use Types Packs/Day Years Used Date Current Every Day Smoker Cigarettes 0.5 30 Started: 06/12/1985 Smokeless Tobacco: Current User Alcohol Use Drinks/Week oz/Week Comments Yes 0 Standard 0.0 occassional drinks or equivalent Sex Assigned at Date Recorded Not on file as of this encounter Last Filed Vital Signs Vital Sign Reading Time Taken Blood Pressure 152/89 01/16/2018 12:18 PM CDT Pulse 74 01/16/2018 12:18 PM CDT Temperature 36.7 C (98.1 F) 01/16/2018 12:15 PM CDT Respiratory Rate - - Oxygen Saturation 96% 01/16/2018 12:15 PM CDT Inhaled Oxygen - - Concentration Weight 73.8 kg (162 lb 11.2 oz) 01/16/2018 12:15 PM CDT Height 165.1 cm (5' 5") 01/16/2018 12:15 PM CDT Body Mass Index 27.07 01/16/2018 12:15 PM CDT in this encounter Functional Status Functional Status Response [...] impairment: No 01/16/2018 as of this encounter Instructions * Patient Instructions - Yvette Flores RN - 01/16/2018 11:00 AM CDT You were seen by members of the Pre Renal/Pancreas Transplant Team today who have recommended that you complete the following: Chest x-ray (today) CT of your abdomen and pelvis WITHOUT contrast (today) Lab work (today) EKG (today) Dental clearance (please notify your coordinator of who your dentist is) Recent stress test report for review (please notify your coordinator where you completed this test) Echocardiogram (someone will call you to schedule this test) Neurocognitive evaluation (someone will call you to schedule this test) Nicotine screening (your coordinator will set this up with you in the future) Financial plan (complete and mail back in preaddressed envelope or fax to [phone]) Please keep your Nurse Coordinator informed of ANY changes in your health and insurance status. We recommend that you sign up for MyChart. The activation code has been provided to you in your after visit summary for today's visit. It was a pleasure to see you today. Thank you for partnering with [facility] for your care. If you should have any questions or concerns, please feel free to contact us. Jenna Mireles RN, BSN Renal/Pancreas Hot Die Picker [facility] , fax [phone] in this encounter Progress Notes * Uyen Goodman, PHARMD - 01/16/2018 11:00 AM CDT Formatting of this note may be different from the original. Pharmacy Kidney Transplant Evaluation I met with Ju Pierce during their pre-transplant clinic visit for their pharmacy transplant evaluation. A medication history was completed with the patient. Home Medications Medication Sig albuterol (PROAIR HFA) 90 mcg/Actuation inhaler Inhale 2 Puffs by mouth Every 6 Hours as needed for Wheezing. amLODIPine (NORVASC) 5 mg tablet Take 5 mg by mouth daily. calcitriol (ROCALTROL) 0.25 mcg capsule Take 0.25 mcg by mouth daily. carvedilol (COREG) 25 mg tablet Take 25 mg by mouth twice daily with meals. Take with food. ferrous gluconate 324 mg (36 mg iron) tab Take 1 tablet by mouth daily. lisinopril (PRINIVIL, ZESTRIL) 40 mg tablet Take 40 mg by mouth daily. mycophenolate mofetil (CELLCEPT) 500 mg tablet Take 500 mg by mouth twice daily. Take on an empty stomach. spironolactone (ALDACTONE) 100 mg tablet Take 100 mg by mouth daily. Take with food. tacrolimus XL (ASTAGRAF XL) 1 mg capsule Take 5 capsules by mouth daily. tiotropium (SPIRIVA WITH HANDIHALER) 18 mcg capsule for inhaler Place 18 mcg into inhaler and inhale into lungs as directed daily. venlafaxine XR (EFFEXOR XR) 150 mg capsule Take 150 mg by mouth daily. Take with food. During this visit the patient was provided with an overview of therapies that will be initiated post-transplant, including but not limited to significant side effects and dosing schedules. Emphasis was placed on the importance of medication adherence both pre and post-transplant. Post-transplant medication education materials were provided. The patient was encouraged to contact the transplant pharmacist with any follow up questions. Ju Pierce expressed understanding of the information discussed. Ms. Pierce has previously had a kidney transplant in 2006 and continues on immunosuppression with Astagraf XL and Cellcept. She is very knowledgeable of her current medications, uses a pillbox for organization, and has a routine of taking her pills twice daily. No medication-related barriers to transplantation were identified. Uyen Goodman, PharmD * Mikala Mcmullen - 01/16/2018 11:00 AM CDT SOCIAL WORK PSYCHOSOCIAL ASSESSMENT Name: Ju Pierce [facility] #: [id number] Date: 01/18/2018 Referral Source: Renal Transplant Team Referral Reason: Kidney Transplant Date Referred: 01/16/18 Source of Information: Patient Patient's Address: [address] [place] [address] Date(s) Interviewed: Telephone #: [phone] (home) 1. PRESENT SITUATION: Sex: female Age: 53 y.o. Birthdate: 1965 Primary Language: Brazilian Ethinic Background: Non- Scientologist: (Optional) Diagnosis: ESRD Statement of Presenting Problem(s): Patient is a 53 year old female who presents for evaluation for kidney transplant. She is accompanied by her significant other, Mary Kate Yin. She has known about kidney disease for about one year which is due to IgA nephropathy. She has a previous kidney transplant from 01/10/2007 which came from living donor through her sister -in-law. She started on dialysis (PD) 11/07/17 at [facility]. She uses a cycler machine at night. She denies missing any treatment or ending any sessions early. She keeps track of her medical appointments on her phone calender which she reports good compliance. She drives herself to her appointments which she will usually come alone vs bringing her mother with her. She also has a history of COPD. Her last hospitalization was about one month ago at [place] due to pneumonia. She denies any diabetes. SW called the [facility] [phone] and left a voice message from RNs Clementine and Luz Elena requesting a return call to further discuss her adherence. Addendum: SW received return call from Luz Elena with dialysis stating pt's compliance has gotten better. She explained she has only been on PD for two months however when she started in November she wanted to go on a cruise which the doctors advised her not to however she went anyways. Then she was sick and hospitalized. Pt has had one month of good compliance. SEVEN updated coordinator. Pt has been deferred. SW to f/u on PD adherence again in a few months. 2. PATIENT'S LIVING SITUATION PRIOR TO ADMISSION Citizenship: [place] Citizen List of household members: mother, 3 dogs Comments: Patient resides in [place], [place] with her mother and three dogs. She states its a two hour drive from her home and she drove up this morning with her significant other. She has lived in her mother's home since October 2017 and moved back due to starting on dialysis and her health condition declining. Its a one level home and she denies any issues ambulating stairs. She has never received any home health care services or had a stay in a SNF, rehab or LTACH. She is independent with ambulation and with ADL's. She was born at [facility] in [place] and raised in [place]. 3. 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 She has been employed there for three years and state she is working 12 hours shifts. She is currently on FMLA and has not been working since December 22, 2017. She states it was too difficult for her to work 12 hour shifts and then complete PD. She explained she works for a small company which has been very supportive of her medical condition and getting her time off. She is not certain when she will return to work and if the hours will change in order to complete PD. She explained the sql database administrator has already told her if she cannot return to work they will continue to keep her on staff so she can keep her insurance. She has access to short-term disability and is going to apply for SSDI. Discussed that patient will need to plan for 6-12 weeks off from work, post-transplant and patient denies any concerns with this. She has insurance through her employer with a [employer] plan. She also has a Medicare plan as secondary. She has not received her card yet and Medicare is not on file. TFA aware and asking pt to send her a copy of her Medicare card upon arrival. She pays her own insurance premiums. Patient verbalizes understanding of the limitations of Medicare (36 months post transplant, barring on-going SSDI eligibility) and of SSDI (limited to as little as one year post-transplant barring on-going disability) after a successful transplant. She fills medications at the [facility]. She takes Astagraf and Cellcept from her first transplant. She states she uses the co pay cards to assist with medication costs. She explained most medications are free. She denies any financial barriers to obtaining the medications she is prescribed or going without medications. She is not receiving any sources of financial assistance with daily living expenses. 4. SUPPORTIVE RELATIONSHIPS/ COMMUNITY RESOURCES Caregivers: Mary Kate Yin - significant other [phone] Laura Yost - mother [phone] Living Donors: One brother interested however she states he was ruled out in the past due to him having sarcoidosis Comments: Patient has never been . She has is in a relationship with her significant other, Mary Kate Yin, who she has been dating since 10/16/16. She has one son who resides in [facility], and two daughters - Luz who is and Edita. They both live near her. She has five grandchildren. She has one sister and two brothers. One of her brothers lives near [place] and the other in [place], [place]. Her father is and her mother alive and in good health. She lives with her mother in [place], [place]. Patient states her brother who resides in [place] was interested in living donation however was ruled out due to sarcoidosis. She is not sure of any other living donors. Sw discussed the requirement to stay locally for two weeks post transplant d/c and provided patient with the area lodging list and with the [facility] fundraising brochures. Patient and Mary Kate have friends which reside in [place], [place] which they plan on staying with during her recovery. Patient voiced understanding of the weekly to bi-weekly [facility] clinic appointments for the first few months following transplant and annual visits thereafter. She verbalized understanding of the need to have a caregiver to assist with care and transportation post-transplant. She also acknowledged that she would not be able to drive for 2-4 weeks, post-transplant. Her primary support will be her significant other, Mary Kate Yin. She lives about 30 minute away from patient and can works as a PT Instrument Technician Apprentice for a rehab company - [employer]. 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 Patient resides with her mother and named her as additional support. Her mother is retired. Both her supports drive. Mary Kate or her mother will get her to the hospital at the time of transplant. 5. COGNITIVE ABILITIES Highest Level of Education: Bachelors Comments: Patient is looking forward to getting her "normal back" after transplant. She states its been hard to work while on dialysis. She reports she has had a transplant before however it was 11 years ago so she is hoping she will recover well from this one however does acknowledge she is older now. She denies any other specific worries or concerns about the transplant process. She denies having any history of medication non-compliance. She voiced understanding of the need to take immunosuppressive medications for the life of the transplant. She states taking her medications are routine for her. She uses a pillbox and denies missing any doses. She takes Cellcept and Astograf from the first transplant. He denies having any history of substance use or of ETOH abuse. She reports she does not drink. She admits to a history and current tobacco use. She used to smoke 1 PPD and started 30 years ago however quit before her first transplant. She states she picked it up again and quit a few days ago. She is aware she will have to have a negative tobacco screen before listing. She quit on her own last time and states she can do this again and denies the need for any resources. She endorses a history of depression. She has been taking Effexor which was prescribed by her PCP for close to twenty years. 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 She denies any psychiatric hospitalizations, no HI or SI. She feels her medication is managing her mood and not interfering with her medical care. She appears to be coping normally at the time of evaluation. . She denies any pending legal issues. She does not have a DPOA-HC or Advanced Directive in place at this time, seven provided her with these forms. 6. SOCIAL WORK EVALUATION Comments: Seven met with patient and significant as part of her evaluation for kidney transplant. She has had a previous living donor transplant in 2006 from her [id number]. She has health insurance coverage through [employer] to meet her medical needs following transplant. She states she also has Medicare as secondary however has not received the card yet. Patient was encouraged to provide card to [facility] upon arrival. She receives support from significant other who will serve as her primary caregiver post transplant and who is also a physical therapist. Her mother is available to offer any additional support. She has reasonable expectations for the transplant process. He has no reported history of substance use or of ETOH abuse. She has been smoking tobacco and quit about a week ago. She is aware she will need a negative nicotine screen before listing. She has history of depression which she feels is being well managed by her PCP and Effexor. Patient to be discussed in multidisciplinary team meeting. Addendum: SEVEN received return call from Luz Elena with dialysis stating pt's compliance has gotten better. She explained she has only been on PD for two months however when she started in November she wanted to go on a cruise which the doctors advised her not to however she went anyways. Then she was sick and hospitalized. Pt has had one month of good compliance. SEVEN updated coordinator. Pt has been deferred. SW to f/u on PD adherence again in a few months. 7. PLAN Plan Discussed with Patient / Family: {PLAN DISCUSSED, AGREED UPON Plan Agreed Upon with Patient / Family: {PLAN DISCUSSED, AGREED UPON * Seven reviewed the Renal Transplant Patient Responsibilities form with patient and significant other, form signed by sw, patient and significant other who both expressed agreement with the transplant expectations. Original provided to patient and copy provided to the transplant team to be scanned into the medical record. Mikala Mcmullen LMSW * Marcela Shell - 01/16/2018 11:00 AM CDT Financial Transplant Evaluation Marcela Moy met with Ju Pierce and Mary Kate for insurance consult. There appear to be No coverage/insurance barriers to transplant with [facility] plan. Ju informed me that she got approved for medicare and that she is just waiting for her card. Advised Ju to call me as soon as she receives the card and provided me with the medicare ID number. Ju expressed No insurance concerns related to cost of post-transplant care and medications and verbalized understanding of Transplant Finance Coordinator's discussion and documents presented. Advised patient to call me if any insurance changes. Provided patient with my contact information. Patient verbalized understanding. Financial Assessment given due to financial liabilities. Written Authorization required prior to listing. Documents presented: Signed Patient Liability Form, Medication Cost Estimate and Financial Assessment. MM 01/16/18 * Yvette Flores, KEITH - 01/16/2018 11:[address] Guillen-need recent stress report from outside facility, EKG today, dental clearance, labs, CT, Echo, will need f/u cotinine in the future, PRA=99% Dr. Kim- Recently quit smoking, no surgical issues but concerned about noncompliance and smoking after previous transplant Uyen Goodman, Lina- no concerns Karolyn Pyle RD- no concerns Mikala Mcmullen LMSW- quit smoking a few days ago, has SO with her who will be support, no issues noted IVONNE Valiente- FAP given MOCA: 21 You were seen by members of the Pre Renal/Pancreas Transplant Team today who have recommended that you complete the following: Chest x-ray (today) CT of your abdomen and pelvis WITHOUT contrast (today) Lab work (today) EKG (today) Dental clearance (please notify your coordinator of who your dentist is) Recent stress test report for review (please notify your coordinator where you completed this test) Echocardiogram (someone will call you to schedule this test) Neurocognitive evaluation (someone will call you to schedule this test) Nicotine screening (your coordinator will set this up with you in the future) Financial plan (complete and mail back in preaddressed envelope or fax to ) Please keep your Nurse Coordinator informed of ANY changes in your health and insurance status. We recommend that you sign up for MyChart. The activation code has been provided to you in your after visit summary for today's visit. It was a pleasure to see you today. Thank you for partnering with [facility] for your care. If you should have any questions or concerns, please feel free to contact us. Jenna Mireles RN, BSN Renal/Pancreas Hot Die Picker [facility] , fax [phone] * Karolyn Pyle, RD - 01/16/2018 11:00 AM CDT Renal Transplant Nutrition Evaluation Impressions: I see no nutritional contraindications to transplantation at this time. Pt has an appropriate body habitus for RTx. Body mass index is 27.07 kg/m . Estimated body mass index is 27.07 kg/m as calculated from the following: Height as of this encounter: 165.1 cm (65"). Weight as of this encounter: 73.8 kg (162 lb 11.2 oz). Subjective: Pt reported current weight: 162 lb Usual wt in the past 6 mo: reports 50 lb wt loss Pt reported muscle/weight loss: yes, 50 lbs but now stable Pt reported appetite: fair/normal Pt reported current diet: low phos, high protein Nutrition related compliance: fair is able to name foods she avoids due to phos content, reports compliance with phos binders. 52 yo F with Hx of ESRD s/p RTx in 2006, now with recurrent ESRD on PD. Pt reports hx of weight loss in the past year of 50 lbs. States this has now stabilized and her weight is okay now. States she is taking a protein shake and protein bar most days and trying to eat high calorie foods. She denies hx of DM. She states she was given a rx for renvela but the pills are large so she alternates this with tums. She also tries to limit dairy intake, nuts/beans/ seeds intake to control phos levels. She appears appropriately nourished, but older than stated age. Nutrition Education/Intervention: Encouraged high protein diet. Encouraged pt to try to get more protein in her diet rather than using protein supplements as they are likely high in phos which is absorbed at a higher rate than dietary phos sources. Encouraged pt to be mindful to look at the phos content of the supplements she is taking and choose lower phos options. Discussed dietary sources of protein and encouraged more eggs and meat/fish. Pt voiced understanding. Instructed on post-transplant nutrition related expectations. Discussed importance of hand hygiene, food safety, grapefruit avoidance. Encouraged healthy diet habits after transplant to maintain overall health and to help maintain a healthy weight. Pt voiced understanding. Goals: increased protein energy intake, wt stable, improved phos levels. MD referral received on 01/16/18 for medical nutrition therapy services. Karolyn Pyle, MS, RD, LD, [facility] *[id number] * Bhumika Guillen MD - 01/16/2018 11:00 AM CDT Formatting of this note may be different from the original. 01/16/18 Ju Pierce [id number] 1965 [address] [place] [address] Griffin Guadarrama, We had the pleasure of meeting Ms. Pierce in the Renal Transplant Clinic for evaluation of her candidacy for renal transplantation. As you know this is a 52 year old female with PMhx of IgA nephropathy, s/p a failed kidney transplant. It lasted 11 years. Here for evaluation of her 2nd transplant. She started dialysis in November 2017. Clinically has been doing well. 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 Doesn't exercise but helps with digital coordinator. Mows the lawn and play with her grand kids. No CP, no SOA, no SAMUELS, no N/V/diarrhea. Compliant with meds and dialysis. No s/ s of claudications. She has had unintentional weight loss of 40 pounds for the last 1.5 years. Denies any N/V/diarrhea, no blood in stools. Appetite is good. No fevers, no night sweats. No chronic cough, no hemoptysis. She has been a long time smoker and quit last week. PMhx: 1) IgA nephropathy, dx around 1999. Biopsy proven IgA. Started on cellcept 750mg BID at that time, no steroids. Went on dialysis in 2002. No systemic involvement and no HSP. She was on even on dialysis until she had a kidney transplant in 2006. 2) LURKT from her 50 yo [id number] on 01/10/2007. PRA was 99%. Induction was thymoglobulin. Had DGF and kidney bx on 01/19/07 showed acute humoral & cellular rejection. +DSA. Additional IVIG 2 gm/kg & Thymoglobulin x 14 doses. After that creat was 1 initially. Slowly deteriorated with time. Kidney bx on 06/2015 showed chronic ABMR and immune mediated disease. DSA screen on 07-03-15: Unfortunately no DQ, DP, HLA C antigen profile available on the donor. So high titers of those cannot be interpreted, no DSA to known HLA. Her IS was increased by inc Cellcept to 750mg BID and had steroid bolus with taper. She went on dialysis in November 2017. She was taken off prednisone by PCP, unclear timeline. On Cellcept 500mg BID and Astragraf 5 mg qd. No hx of OI's. No hx of cancers other than BCC of skin. Able to tolerate MMF but Astragraf has been giving her nausea. DSA done again on 10/2017 and high levels of DSA seen not present in . 3) ESRD since 11/2017, on PD, Cyclir for 10 hours, 4 cycles with 2000 ml, no last fill. No hx of peritonitis. UOP 800ml in 24 hours. 4) 2HPTH, on caclitriol 3) Asthma/COPD, on Spiriva. Had pneumonia in Oct 2017 and since then on spiriva. Gets steroids for exacerbation by Dr. Guadarrama. Never required O2. 4) HTN, on 4 medications, states has been difficult to control since dialysis but improved since Norvasc was added. She is on Norvasc, coreg, spironolactone and lisinopril. Uses clonidine as needed. 5) Depression, on effexor. Started after her son's accident 10 years ago (Had TBI) and is on a stable dose for many years. No suicidal ideations or attempts. 6) Former smoker and quit a week ago. No hx of strokes, no DM, no chronic diarrhea, no kidney stones, no blood disorders, no DVT/PE, no UTIs. No CAD, had a stress a few months ago at [facility]. It was b/c of high BP. As per pt is normal. Comprehensive 14-point ROS obtained: Otherwise negative besides what is stated above. 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) Depression ESRD (end stage renal disease) ([facility]) Hypercalcemia Hypertension IgA nephropathy Kidney transplantation Obesity Snoring URI (upper respiratory infection) Past Surgical History: Procedure Laterality Date HX RENAL TRANSPLANT SD DELIVERY ONLY , Low Cervical SD VAGINAL HYSTERECTOMY UTERUS 250 GM/< Hysterectomy, Vaginal RENAL BIOPSY Renal transplant. Social History Social History Marital status: Spouse name: N/A Number of children: N/A Years of education: N/A Occupational History Not on file. Social History Main Topics Smoking status: Current Every Day Smoker Packs/day: 0.50 Years: 30.00 Types: Cigarettes Start date: 06/12/1985 Smokeless tobacco: Current User Alcohol use 0.0 oz/week Comment: occassional Drug use: No Sexual activity: Not on file Other Topics Concern Not on file Social History Narrative No narrative on file Former smoker, 1 PPD for 30 years. Stopped last week. No ETOH use, no illicit drug use. On FMLA. 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 , 3 children, 34, 32 and 28. Healthy. Son is in a facility as had TBI after car accident. Lives with mother and has a partner who is the support person. Family hx: No significant family hx. Current Medications: albuterol (PROAIR HFA) 90 mcg/Actuation inhaler Inhale 2 Puffs by mouth Every 6 Hours as needed for Wheezing. amLODIPine (NORVASC) 5 mg tablet Take 5 mg by mouth daily. calcitriol (ROCALTROL) 0.25 mcg capsule Take 0.25 mcg by mouth daily. carvedilol (COREG) 25 mg tablet Take 25 mg by mouth twice daily with meals. Take with food. ferrous gluconate 324 mg (36 mg iron) tab Take 1 tablet by mouth daily. lisinopril (PRINIVIL, ZESTRIL) 40 mg tablet Take 40 mg by mouth daily. mycophenolate mofetil (CELLCEPT) 500 mg tablet Take 500 mg by mouth twice daily. Take on an empty stomach. spironolactone (ALDACTONE) 100 mg tablet Take 100 mg by mouth daily. Take with food. tacrolimus XL (ASTAGRAF XL) 1 mg capsule Take 5 capsules by mouth daily. tiotropium (SPIRIVA WITH HANDIHALER) 18 mcg capsule for inhaler Place 18 mcg into inhaler and inhale into lungs as directed daily. venlafaxine XR (EFFEXOR XR) 150 mg capsule Take 150 mg by mouth daily. Take with food. Physical Exam: BP 152/89 (BP Source: Arm, Left, Patient Position: Standing) | Pulse 74 | Temp 36.7 C (98.1 F) (Oral) | Ht 165.1 cm (65") | Wt 73.8 kg (162 lb 11.2 oz) | SpO2 96% | BMI 27.07 kg/m Physical Exam: General: in NAD HEENT: EOMI; glasses; sclera anicteric, bad teeth CV: RRR S1/S2, no murmurs, rubs or gallops. Lungs: CTA B/L, wheezing Abd: RLQ allograft non tender, PD cath in place. No HSM Ext: trace edema Neuro: nonfocal Psych: affect appropriate Laboratory studies: Renal transplant biopsy (07-02-15): 1. Peritubular capillaritis, glomerulitis and chronic glomerulopathy; 2. Immune complex glomerular deposits, IgA dominant. COMMENT: The biopsy shows IgA dominant deposits, consistent with the reported history of IgA nephropathy (IgAN) and suggestive of recurrence, at least microscopically. There are also features consistent with acute and chronic antibody mediated rejection, including glomerulitis and peritubular capillaritis. While it is possible to attribute these findings solely to IgAN, there are other features of the biopsy that suggest an alternative interpretation. For example, there is disproportionate glomerular basement membrane duplication relative the amount and extent of immune complex deposition detected by electron microscopy. Thus, if a donor specific antibody is present, I favor a diagnosis of chronic antibody mediated rejection with concurrent IgAN recurrence. If no DSA is present, then the findings are more likely attibutable to immune complex glomerular disease. The other entity to consider in the differential diagnosis for the extensive glomerular double contours is chronic calcineurin inhibitor toxicity. There is severe arteriolar hyalinosis, which can be a feature of calcineurin inhibitor toxicity. However, the inflammatory findings make that diagnosis less likely. Urinalysis: Lab Results Component Value Date/Time UCOLOR YELLOW 01/16/2018 03:30 PM TURBID CLEAR 01/16/2018 03:30 PM USPGR 1.011 01/16/2018 03:30 PM UPH 8.0 01/16/2018 03:30 PM UPROTEIN 2+ (A) 01/16/2018 03:30 PM UAGLU 1+ (A) 01/16/2018 03:30 PM UKET NEG 01/16/2018 03:30 PM UBILE NEG 01/16/2018 03:30 PM UBLD NEG 01/16/2018 03:30 PM UROB NORMAL 01/16/2018 03:30 PM Viral Serologies: Viral Serologies Latest Ref Rng & Units 01/16/2018 10/13/2017 CMV IgG - - - CMV IgM - - - EBV Capsid IgG 2 - - EBV Capsid IgM - - - EBV Nuclear AG, AB - - - EBV Early AG,AB - - - HSV Simplex IgG - - - HIV 1 & 2 AG, AB NEG-NEG NEG - BKVB - - - BKVQ1 BKND-BK Virus Not Detected - BK Virus Not Detected CBC with Diff: CBC with Diff Latest Ref Rng & Units 01/16/2018 10/13/2017 WBC 4.5 - 11.0 K/UL 9.1 8.4 RBC 4.0 - 5.0 M/UL 3.10(L) 3.12(L) HGB 12.0 - 15.0 GM/DL 9.5(L) 9.6(L) HCT 36 - 45 % 28.4(L) 28.6(L) MCV 80 - 100 FL 91.5 91.8 MCH 26 - 34 PG 30.8 30.7 MCHC 32.0 - 36.0 G/DL 33.6 33.5 RDW 11 - 15 % 17.1(H) 14.7 PLT 150 - 400 K/UL 224 211 MPV 7 - 11 FL 6.9(L) 8.5 NEUT 41 - 77 % 62 67 ANC 1.8 - 7.0 K/UL 5.70 5.70 LYMA 24 - 44 % 20(L) 18(L) ALYM 1.0 - 4.8 K/UL 1.80 1.50 ALONSO 4 - 12 % 8 7 AMONO 0 - 0.80 K/UL 0.70 0.60 EOSA 0 - 5 % 9(H) 7(H) AEOS 0 - 0.45 K/UL 0.80(H) 0.60(H) BASA 0 - 2 % 1 1 ABAS 0 - 0.20 K/UL 0.00 0.00 CMP: CMP Latest Ref Rng & Units 01/16/2018 10/13/2017 NA 137 - 147 MMOL/L 141 140 K 3.5 - 5.1 MMOL/L 4.9 4.8 CL 98 - 110 MMOL/L 102 111(H) CO2 21 - 30 MMOL/L 25 21 GAP 3 - 12 14(H) 8 BUN 7 - 25 MG/DL 52(H) 45(H) CR 0.4 - 1.00 MG/DL 13.79(H) 4.55(H) GLUX 70 - 100 MG/DL 84 83 CA 8.5 - 10.6 MG/DL 10.1 9.4 TP 6.0 - 8.0 G/DL 7.1 6.7 ALB 3.5 - 5.0 G/DL 3.8 3.6 ALKP 25 - 110 U/L 71 67 ALT 7 - 56 U/L 6(L) 5(L) TBILI 0.3 - 1.2 MG/DL 0.3 0.3 GFR >60 mL/min 3(L) 10(L) GFRAA >60 mL/min 3(L) 12(L) Other Common Labs: Other Common Labs Latest Ref Rng & Units 01/16/2018 10/13/2017 IRON 50 - 160 MCG/DL - 40(L) TIBC 270 - 380 MCG/DL - 280 PSAT 28 - 42 % - 14(L) MORGAN 10 - 200 NG/ML - 192 PO4 2.0 - 4.0 MG/DL 9.7(H) 5.2(H) MG 1.6 - 2.6 mg/dL - 2.1 VITD 30 - 80 NG/ML - 17.6(L) UPRO NEG-NEG 2+(A) 2+(A) UCRR MG/DL 84 141 UPCRC - 3.2 1.4 URICA 2.0 - 7.0 MG/DL - 6.3 HBA1C 4.0 - 6.0 % - 5.4 Tacrolimus 2 - 15 NG/ML - 4.6 CSA - - - Patient Active Problem List Diagnosis Date Noted UTI (urinary tract infection) 06/11/2017 ANNETTE (acute kidney injury) ([facility]) 06/11/2017 Immunosuppression ([facility]) 04/14/2016 Proteinuria 04/14/2016 Mixed hyperlipidemia 04/14/2016 Chronic congestion of paranasal sinus 04/14/2016 Chronic bronchitis ([facility]) 04/14/2016 Chronic rejection of kidney transplant 07/03/2015 Kidney replaced by transplant 07/03/2015 Imaging: Results for orders placed during the hospital encounter of 06/10/17 CT ABD/PELV WO CONTRAST Impression 1. Right lower quadrant renal transplant is redemonstrated with development of mild diffuse perinephric stranding. This could be secondary to pyelonephritis, rejection or other medical renal disease. No hydronephrosis. 2. Marked atrophy of the bilateral [place] kidneys with a probable benign right upper pole renal cystic lesion. 3. Mild increased stool throughout the colon suggesting mild constipation. No bowel obstruction or ascites. 4. Mild decrease in size of a near simple fluid collection in the deep right gluteal musculature laterally. This may represent a seroma or lymphocele, though correlate with previous fluid analysis results. Finalized by Bridger Gastelum M.D. on 06/11/2017 4:36 AM. Dictated by Bridger Gastelum M.D. on 06/11/2017 4:23 AM. Results for orders placed during the hospital encounter of 06/10/17 CHEST SINGLE VIEW Impression No acute cardiopulmonary abnormality. Approved by Moody Goodman M.D. on 06/11/2017 7:31 AM By my electronic signature, I attest that I have personally reviewed the images for this examination and formulated the interpretations and opinions expressed in this report Finalized by Adela Moreno M.D. on 06/11/2017 7:40 AM. Dictated by Moody Goodman M.D. on 06/11/2017 6:12 AM. Potential barriers for Transplantation: None Education and Consent: We discussed the risks, benefits, and complications of renal transplantation with the patient including donor and living donor transplantation. We also discussed the kidney allocation system including KDPI, EPTS scores and wait times. The use, compliance with medications and side effects of immunosuppression including cancer and infection, the risk of primary graft non- function, SGF, DGF, rejection, primary disease recurrence were also discussed. The patient demonstrated a full and adequate understanding and all questions were answered. The patient was informed that higher KDPI (>85%) kidneys may incur some small additional risks compared to an SCD (or KDPI below 85%) kidney and those risks and benefits were also discussed. Ms. Pierce consented to accept a higher KDPI (>85%) kidney should one become available for them and was informed they have a right to refuse any kidney that is offered to them for transplant without affecting their status on the wait list. Assessment and Plan: Ju Pierce is a 52 y.o. 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 Has PRA 99%. Seems to be a good candidate. 1. Still on Cellcept 500mg BID and Astragraf at 5 mg QD. She makes 800 ml urine. Will taper Cellcept slowly to off. Keep Astragraf for now. Will discuss this with her primary manager telemetry Dr. Guadarrama. She might have LDs. 2. Hx of 40-50 pound unintentional weight loss. Will get EBV PCR, and appropriate screening for cancer. Has been on long-term immunosuppression. No infectious s/s found. Will evaluate CT for any masses or LAD. 3. CT scan abd/pelvis. 4. Colonoscopy. 5. Mammogram 6. Pap smear, she has a hysterectomy but unclear if it is complete. 7. EKG today. 8. Stress test done in [place], will need report. She will need an echocardiogram if not done with stress as she has uncontrolled HTN and COPD. 9. Will need to assess smoking status. She quit after 30 years a week ago. 10. No potential LD's at this time. She and her partner are working on it. Brother who was the potential donor has long standing sarcoidosis. 11. Dental clearance. 12. PFT's. She will be discussed in our Multidisciplinary Committee Selection Meeting before a final decision is made. The patient will be contacted by the pre- compliance coordinator with the final decision Thank you for this opportunity in allowing us to participate in the care of your patient. Sincerely, Bhumika Guillen MD CC: Eligio Antonio in this encounter Plan of Treatment Name Priority Associated Diagnoses Date/Time RED TOP TUBE FOR MTN TRANSPLANT Routine ESRD (end stage renal 2017 3:29 PM CDT disease) ([facility]) Pre-transplant evaluation for end stage renal disease LAVENDER (EDTA) TOP TUBE FOR MTN Routine ESRD (end stage renal 2017 3:29 PM CDT TRANSPLANT disease) ([facility]) Pre-transplant evaluation for end stage renal disease Name Priority Associated Diagnoses Order Schedule RED TOP TUBE FOR MTN TRANSPLANT Routine ESRD (end stage renal Expected: 01/16/2018 disease) ([facility]) (Approximate), Expires: Pre-transplant evaluation 01/16/2019 for end stage renal disease LAVENDER (EDTA) TOP TUBE FOR MTN Routine ESRD (end stage renal Expected : 01/16/2018 TRANSPLANT disease) ([facility]) (Approximate), Expires: Pre-transplant evaluation 01/16/2019 for end stage renal disease 2-D + DOPPLER ECHOCARDIOGRAM Routine ESRD (end stage renal Expected: , disease) ([facility]) Expires: 01/16/2019 Pre-transplant evaluation for end stage renal disease EBV DNA, PCR QUANT BLOOD Specimen Pre-transplant evaluation Ordered: in Lab for end stage renal disease PARATHYROID HORMONE Specimen Pre-transplant evaluation Ordered: 2017 in Lab for end stage renal disease Name Priority Associated Diagnoses Order Schedule AMB REFERRAL TO NEUROPSYCHOLOGY Routine ESRD (end stage renal Ordered: 01/16/2018 disease) ([facility]) Pre-transplant evaluation for end stage renal disease as of this encounter Results * BLOOD TYPE CONFIRMATION - ORDER ONLY IF REQUESTED BY LAB (01/16/2018 3:41 PM) Component Value Ref Range ABO/RH(D) A POS Antigen Information A1 antigen Pos, Specimen Performing Laboratory Blood MAIN LAB [address] [place] [address] * PHENCYCLIDINES-URINE RANDOM (01/16/2018 3:30 PM) Component Value Ref Range Phencyclidine (PCP) NEG NEG-NEG Comment: RESULTS WERE OBTAINED BY IMMUNOASSAY AND ARE PRESUMPTIVE ONLY. POSITIVE INDICATES THE PRESENCE OF SUBSTANCE WITH CHARACTERISTICS SIMILAR TO DRUG-DRUG CLASS OR METABOLITE IN CONC. EQUAL TO OR EXCEEDING VALUES LISTED. PHENCYCLIDINE (PCP)25 NG/ML Specimen Performing Laboratory Urine [facility] [address] [place] [address] * OPIATES-URINE RANDOM (01/16/2018 3:30 PM) Component Value Ref Range Opiates-Urine NEG NEG-NEG Comment: RESULTS WERE OBTAINED BY IMMUNOASSAY AND ARE PRESUMPTIVE ONLY. POSITIVE INDICATES THE PRESENCE OF SUBSTANCE WITH CHARACTERISTICS SIMILAR TO DRUG-DRUG CLASS OR METABOLITE IN CONC. EQUAL TO OR EXCEEDING VALUES LISTED. [id number] 0 NG/ML Specimen Performing Laboratory Urine [facility] [address] [place] [id number] * COCAINE-URINE RANDOM (01/16/2018 3:30 PM) Component Value Ref Range Cocaine-Urine NEG NEG-NEG Comment: RESULTS WERE OBTAINED BY IMMUNOASSAY AND ARE PRESUMPTIVE ONLY. POSITIVE INDICATES THE PRESENCE OF SUBSTANCE WITH CHARACTERISTICS SIMILAR TO DRUG-DRUG CLASS OR METABOLITE IN CONC. EQUAL TO OR EXCEEDING VALUES LISTED. COCAINE 300 NG/ML Specimen Performing Laboratory Urine [facility] [address] [place] [id number] * CANNABINOIDS-URINE RANDOM (01/16/2018 3:30 PM) Component Value Ref Range THC NEG NEG-NEG Comment: RESULTS WERE OBTAINED BY IMMUNOASSAY AND ARE PRESUMPTIVE ONLY. POSITIVE INDICATES THE PRESENCE OF SUBSTANCE WITH CHARACTERISTICS SIMILAR TO DRUG-DRUG CLASS OR METABOLITE IN CONC. EQUAL TO OR EXCEEDING VALUES LISTED. [id number] NG/ML Specimen Performing Laboratory Urine [facility] [address] [place] [address] * BENZODIAZEPINES-URINE RANDOM (01/16/2018 3:30 PM) Component Value Ref Range Benzodiazepines NEG NEG-NEG Comment: RESULTS WERE OBTAINED BY IMMUNOASSAY AND ARE PRESUMPTIVE ONLY. POSITIVE INDICATES THE PRESENCE OF SUBSTANCE WITH CHARACTERISTICS SIMILAR TO DRUG-DRUG CLASS OR METABOLITE IN CONC. EQUAL TO OR EXCEEDING VALUES LISTED. BENZODIAZEPINES 200 NG/ML Specimen Performing Laboratory Urine [facility] [address] [place] [id number] * BARBITURATES-URINE RANDOM (01/16/2018 3:30 PM) Component Value Ref Range Barbiturates,Urine NEG NEG-NEG Comment: RESULTS WERE OBTAINED BY IMMUNOASSAY AND ARE PRESUMPTIVE ONLY. POSITIVE INDICATES THE PRESENCE OF SUBSTANCE WITH CHARACTERISTICS SIMILAR TO DRUG-DRUG CLASS OR METABOLITE IN CONC. EQUAL TO OR EXCEEDING VALUES LISTED. [id number] NG/ML Specimen Performing Laboratory Urine [facility] [address] [place] [address] * AMPHETAMINES-URINE RANDOM (01/16/2018 3:30 PM) Component Value Ref Range Amphetamines NEG NEG-NEG Comment: RESULTS WERE OBTAINED BY IMMUNOASSAY AND ARE PRESUMPTIVE ONLY. POSITIVE INDICATES THE PRESENCE OF SUBSTANCE WITH CHARACTERISTICS SIMILAR TO DRUG-DRUG CLASS OR METABOLITE IN CONC. EQUAL TO OR EXCEEDING VALUES LISTED. AMPHETAMINES 1000 NG/ML Specimen Performing Laboratory Urine [facility] [address] [place] [address] * URINALYSIS, MICROSCOPIC (01/16/2018 3:30 PM) Component Value Ref Range WBCs,UA 2-10 0 - 2 /HPF RBCs,UA 2-10 0 - 3 /HPF MucousUA TRACE Squamous Epithelial Cells 5-10 0 - 5 Specimen Performing Laboratory Urine [facility] [address] [place] [id number] * URINALYSIS DIPSTICK (01/16/2018 3:30 PM) Component Value Ref Range Color,UA YELLOW Turbidity,UA CLEAR CLEAR-CLEAR Specific [place]-Urine 1.011 1.003 - 1.035 pH,UA 8.0 5.0 - 8.0 Protein,UA 2+ (A) NEG-NEG Glucose,UA 1+ (A) NEG-NEG Ketones,UA NEG NEG-NEG Bilirubin,UA NEG NEG-NEG Blood,UA NEG NEG-NEG Urobilinogen,UA NORMAL NORM-NORMAL Nitrite,UA NEG NEG-NEG Leukocytes,UA NEG NEG-NEG Urine Ascorbic Acid, UA NEG NEG-NEG Specimen Performing Laboratory Urine [facility] [address] [place] [address] * ABO/RH(D) (01/16/2018 3:30 PM) Component Value Ref Range ABO/RH(D) A POS Antigen Information A1 antigen Pos, Specimen Performing Laboratory Blood [address] [address] * HEMOGLOBIN A1C (01/16/2018 3:29 PM) Component Value Ref Range Hemoglobin A1C 5.3 4.0 - 6.0 % Comment: The ADA recommends that most patients with type 1 and type 2 diabetes maintain an A1c level <7%. Specimen Performing Laboratory Blood [facility] [address] [place] [id number] * SYPHILIS AB SCREEN (01/16/2018 3:29 PM) Component Value Ref Range Syphilis AB, Total NEG NEG-NEG Comment: Negative EIA: Negative results indicate no past or present syphilis infection. Early infection can not be excluded. Specimen Performing Laboratory Blood [facility] [address] [place] [address] * PROTIME INR (PT) (01/16/2018 3:29 PM) Component Value Ref Range INR 1.1 0.8 - 1.2 Specimen Performing Laboratory Blood MAIN LAB [address] [place] [address] * PHOSPHORUS (01/16/2018 3:29 PM) Component Value Ref Range Phosphorus 9.7 (H) 2.0 - 4.0 MG/DL Specimen Performing Laboratory Blood MAIN LAB [address] [place] [address] * HSV I/II GLYCOPROTEIN G AB (01/16/2018 3:29 PM) Component Value Ref Range HSV Type 1 IgG POS (A) NEG-NEG HSV Type 2 IgG NEG NEG-NEG Specimen Performing Laboratory Blood MAIN LAB [address] [place] [address] * HIV-1/2 ANTIGEN/ANTIBODY SCREEN (01/16/2018 3:29 PM) Component Value Ref Range HIV 1 and 2 AG AB Screen NEG NEG-NEG Specimen Performing Laboratory Blood MAIN LAB [address] [place], [place] [id number] * HEPATITIS C AB (01/16/2018 3:29 PM) Component Value Ref Range Anti HCV NEG NEG-NEG Specimen Performing Laboratory Blood MAIN LAB [address] [place] [address] * HEPATITIS B SURFACE AG (01/16/2018 3:29 PM) Component Value Ref Range HBsAg NEG NEG-NEG Specimen Performing Laboratory Blood MAIN LAB [address] [place] [address] * HEPATITIS B SURFACE AB (01/16/2018 3:29 PM) Component Value Ref Range Anti HBs <2.5 mIU/ml Comment: Hepatitis B Surface Antibody Reference Ranges >12.0 Positive 8.0-12.0Equivocal <8.0Negative Specimen Performing Laboratory Blood MAIN LAB [address] [place] [address] * HEPATITIS B CORE AB TOT (IGG+IGM) (01/16/2018 3:29 PM) Component Value Ref Range Anti HBc Total NEG Specimen Performing Laboratory Blood MAIN LAB [address] [place] [address] * MARIAELENA KHAN PANEL(EBV) (01/16/2018 3:29 PM) Component Value Ref Range EBV Capsid IgG POS EBV Nuclear Ag,Ab NEG EBV Early Ag,Ab NEG EBV Capsid IgM NEG NEG-NEG Specimen Performing Laboratory Blood MAIN LAB [address] [place] [address] * COMPREHENSIVE METABOLIC PANEL (01/16/2018 3:29 PM) [...] questions. Specimen Performing Laboratory Blood MAIN LAB [address] [place] [id number] * CMV AB IGM (01/16/2018 3:29 PM) Component Value Ref Range CMV, IgM NEG NEG-NEG Specimen Performing Laboratory Blood MAIN LAB [address] [place] [address] * CMV AB IGG (01/16/2018 3:29 PM) Component Value Ref Range CMV, IgG NEG Specimen Performing Laboratory Blood MAIN LAB [address] [place] [place] [address] * CBC AND DIFF (01/16/2018 3:29 PM) [...] Performing Laboratory Blood [facility] [address] [place] [address] in this encounter Visit Diagnoses Diagnosis Pre-transplant evaluation for end stage renal disease - Primary Other specified pre-operative examination Chronic kidney disease, stage V (HCC) Chronic kidney disease, Stage V ESRD (end stage renal disease) (HCC) End stage renal disease 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, unspecified whether bed bug exterminator insulin use (HCC) Screening for HIV (human immunodeficiency virus) Special screening examination for other specified viral diseases
--- OUTSIDE RECORDS SUMMARY | 2018-03-25 09:37 | XMS REPORT | Encounter Summary ---
Author Author [facility] Organization [facility] Address Unknown Phone Unavailable Care Team Providers Care Attacher Name Role Phone Brent Jarvis MD Unavailable [...] Unavailable Meagan Santos Unavailable Unavailable Alicia Manrique INTERMODAL CUSTOMER SERVICE Unavailable Reason for Visit * Reason Comments Financial/Insurance Financial Consult Questions Encounter Details Date Type Department Care Team Description 01/16/2018 Telephone Center for Marcela Shell Financial/ Insurance Transplantation-Kidney/Pa Questions (Financial ncreas Nep Consult) [address] [place] [address] Social History Tobacco Use Types Packs/Day Years [...] encounter Miscellaneous Notes * Telephone Encounter - Marcela Shell - 01/16/2018 2:35 PM CDT Financial Transplant Evaluation Marcela Moy met with Ju Pierce and Mary Kate for insurance consult. There appear to be No coverage/insurance barriers to transplant with On license of [facility] plan. Ju informed me that she got [...] Cost Estimate and Financial Assessment. MM 01/16/18 in this encounter Plan of Treatment Not on fileas of this encounter Visit Diagnoses Not on filein this encounter
--- OUTSIDE RECORDS SUMMARY | 2018-03-25 09:37 | XMS REPORT | Encounter Summary ---
Author Author [facility] Organization [facility] Address Unknown Phone Unavailable Care Team Providers Care Motorcycle Tester Name Role Phone Brent Jarvis MD Unavailable [...] Guillen MD Unavailable Meagan Santos Unavailable Unavailable Alicai Manrique TREE SAPPER Unavailable Reason for Visit * Reason Comments Kidney Evaluation Encounter Details Date Type Department Care Team Description 01/16/2018 Transplant Center for Vince Kim MD Pre-transplant evaluation Evaluation Transplantation-Kidney/[facility] for kidney transplant ncreas Surg [place] 1045 (Primary Dx) [address] [address] [address] [facility] [phone] [place] [address] [phone] Social History Tobacco Use Types Packs/Day Years [...] impairment: No 01/16/2018 as of this encounter Progress Notes * Vince Kim MD - 01/16/2018 12:00 PM CDT Formatting of this note may be different from the original. Date of Service: 01/16/2018 Subjective: Ju Pierce is a 52 y.o. female. 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 She is here for re do kidney transplant evaluation. She just stop smoking 2 days ago Review of Systems Constitutional: Positive for chills and fatigue. HENT: Negative. Eyes: Negative. Negative for itching. Respiratory: Negative. Negative for cough and chest tightness. Cardiovascular: Negative. Gastrointestinal: Negative for abdominal pain and anal bleeding. Genitourinary: Negative. Negative for dyspareunia and urgency. Neurological: Negative. Negative for facial asymmetry and light-headedness. Hematological: Negative. Psychiatric/Behavioral: Negative. 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 Social History Social History Marital status: Spouse name: N/A Number of children: N/A Years of education: N/A Social History Main Topics Smoking status: Current Every Day Smoker Packs/day: 0.50 Years: 30.00 Types: Cigarettes Start date: 06/12/1985 Smokeless tobacco: Current User Alcohol use 0.0 oz/week Comment: occassional Drug use: No Sexual activity: Not on file Other Topics Concern Not on file Social History Narrative No narrative on file Objective: Allergies as of 01/16/2018 - Reviewed 01/16/2018 Allergen Reaction Noted Sulfa (sulfonamide antibiotics) RASH 01/10/2006 Vancomycin RASH 01/09/2007 Morphine AGITATION 10/16/2015 albuterol (PROAIR HFA) 90 mcg/Actuation inhaler Inhale [...] mg by mouth daily. Take with food. There were no vitals filed for this visit. There is no height or weight on file to calculate BMI. Physical Exam Constitutional: She is oriented to person, place, and time. She appears well- developed and well-nourished. No distress. HENT: Head: Normocephalic. Right Ear: External ear normal. Left Ear: External ear normal. Nose: Nose normal. Mouth/Throat: Oropharynx is clear and moist. Eyes: Conjunctivae and EOM are normal. Pupils are equal, round, and reactive to light. Right eye exhibits no discharge. Left eye exhibits no discharge. No scleral icterus. Neck: No JVD present. No tracheal deviation present. No thyromegaly present. Cardiovascular: Normal rate, regular rhythm, normal heart sounds and intact distal pulses. Exam reveals no friction rub. No murmur heard. Pulmonary/Chest: Effort normal and breath sounds normal. No respiratory distress. She has no wheezes. She has no rales. She exhibits no tenderness. Abdominal: Soft. Bowel sounds are normal. She exhibits no distension and no mass. There is no tenderness. There is no rebound and no guarding. Musculoskeletal: Normal range of motion. She exhibits no edema, tenderness or deformity. Neurological: She is alert and oriented to person, place, and time. She displays normal reflexes. No cranial nerve deficit or sensory deficit. She exhibits normal muscle tone. Coordination normal. Skin: She is not diaphoretic. Nursing note and vitals reviewed. Hospital Outpatient Visit on 10/13/2017 Component Date Value Ref Range Status Vitamin D(25-OH)Total 10/13/2017 17.6* 30 - 80 NG/ML Final BK Virus Plasma Quant 10/13/2017 BK Virus Not Detected BKND-BK Virus Not Detected Final BK Virus Plasma Comment 10/13/2017 Final Value:NOTE NEW METHODOLOGY This assay uses analyte specific reagents and has not been cleared by the US Food and Drug Administration. The performance characteristics were determined by the [facility]. Iron 10/13/2017 40* 50 - 160 MCG/DL Final Iron Binding-TIBC 10/13/2017 280 270 - 380 MCG/DL Final % Saturation 10/13/2017 14* 28 - 42 % Final Ferritin 10/13/2017 192 10 - 200 NG/ML Final Protein, Random 10/13/2017 195 MG/DL Final Creatinine, Random 10/13/2017 141 MG/DL Final Protein/CR ratio 10/13/2017 1.4 Final White Blood Cells 10/13/2017 8.4 4.5 - 11.0 K/UL Final RBC 10/13/2017 3.12* 4.0 - 5.0 M/UL Final Hemoglobin 10/13/2017 9.6* 12.0 - 15.0 GM/DL Final Hematocrit 10/13/2017 28.6* 36 - 45 % Final MCV 10/13/2017 91.8 80 - 100 FL Final MCH 10/13/2017 30.7 26 - 34 PG Final MCHC 10/13/2017 33.5 32.0 - 36.0 G/DL Final RDW 10/13/2017 14.7 11 - 15 % Final Platelet Count 10/13/2017 211 150 - 400 K/UL Final MPV 10/13/2017 8.5 7 - 11 FL Final Neutrophils 10/13/2017 67 41 - 77 % Final Lymphocytes 10/13/2017 18* 24 - 44 % Final Monocytes 10/13/2017 7 4 - 12 % Final Eosinophils 10/13/2017 7* 0 - 5 % Final Basophils 10/13/2017 1 0 - 2 % Final Absolute Neutrophil Count 10/13/2017 5.70 1.8 - 7.0 K/UL Final Absolute Lymph Count 10/13/2017 1.50 1.0 - 4.8 K/UL Final Absolute Monocyte Count 10/13/2017 0.60 0 - 0.80 K/UL Final Absolute Eosinophil Count 10/13/2017 0.60* 0 - 0.45 K/UL Final Absolute Basophil Count 10/13/2017 0.00 0 - 0.20 K/UL Final Cholesterol 10/13/2017 148 <200 MG/DL Final Sodium 10/13/2017 140 137 - 147 MMOL/L Final Potassium 10/13/2017 4.8 3.5 - 5.1 MMOL/L Final Chloride 10/13/2017 111* 98 - 110 MMOL/L Final Glucose 10/13/2017 83 70 - 100 MG/DL Final Blood Urea Nitrogen 10/13/2017 45* 7 - 25 MG/DL Final Creatinine 10/13/2017 4.55* 0.4 - 1.00 MG/DL Final Calcium 10/13/2017 9.4 8.5 - 10.6 MG/DL Final Total Protein 10/13/2017 6.7 6.0 - 8.0 G/DL Final Total Bilirubin 10/13/2017 0.3 0.3 - 1.2 MG/DL Final Albumin 10/13/2017 3.6 3.5 - 5.0 G/DL Final Alk Phosphatase 10/13/2017 67 25 - 110 U/L Final AST (SGOT) 10/13/2017 9 7 - 40 U/L Final CO2 10/13/2017 21 21 - 30 MMOL/L Final ALT (SGPT) 10/13/2017 5* 7 - 56 U/L Final Anion Gap 10/13/2017 8 3 - 12 Final eGFR Non 10/13/2017 10* >60 mL/min Final Comment: The eGFR is not validated for use in drug dosing adjustments. Continue to use estimated creatinine clearance per dosing reference text. Please contact the Clinical Pharmacist for questions. eGFR 10/13/2017 12* >60 mL/min Final Comment: The eGFR is not validated for use in drug dosing adjustments. Continue to use estimated creatinine clearance per dosing reference text. Please contact the Clinical Pharmacist for questions. Creatine Kinase 10/13/2017 65 21 - 215 U/L Final Magnesium 10/13/2017 2.1 1.6 - 2.6 mg/dL Final Phosphorus 10/13/2017 5.2* 2.0 - 4.0 MG/DL Final Uric Acid 10/13/2017 6.3 2.0 - 7.0 MG/DL Final Color,UA 10/13/2017 YELLOW Final Turbidity,UA 10/13/2017 CLEAR CLEAR-CLEAR Final Specific Nicholson-Urine 10/13/2017 1.014 1.003 - 1.035 Final pH,UA 10/13/2017 5.0 5.0 - 8.0 Final Protein,UA 10/13/2017 2+* NEG-NEG Final Glucose,UA 10/13/2017 1+* NEG-NEG Final Ketones,UA 10/13/2017 NEG NEG-NEG Final Bilirubin,UA 10/13/2017 NEG NEG-NEG Final Blood,UA 10/13/2017 NEG NEG-NEG Final Urobilinogen,UA 10/13/2017 NORMAL NORM-NORMAL Final Nitrite,UA 10/13/2017 NEG NEG-NEG Final Leukocytes,UA 10/13/2017 NEG NEG-NEG Final Urine Ascorbic Acid, UA 10/13/2017 NEG NEG-NEG Final WBCs,UA 10/13/2017 0-2 0 - 2 /HPF Final RBCs,UA 10/13/2017 0-2 0 - 3 /HPF Final Comment,UA 10/13/2017 Final Value:Urine submitted for reflex culture if criteria are met: WBC>10, positive nitrite and/or >=1+ leukocyte esterase. If quantity is not sufficient, an addendum will follow. MucousUA 10/13/2017 TRACE Final Squamous Epithelial Cells 10/13/2017 2-5 0 - 5 Final Granular Casr 10/13/2017 0-2 Final Tacrolimus 10/13/2017 4.6 2 - 15 NG/ML Final Comment: Target concentrations vary by type of transplant, patient response, concomitant immunosuppression and post-transplant time interval. Test was performed on whole blood using shopa QMS reagent and a Dyana [place] AU analyzer. Hemoglobin A1C 10/13/2017 5.4 4.0 - 6.0 % Final Comment: The ADA recommends that most patients with type 1 and type 2 diabetes maintain an A1c level <7%. UA Reflex Culture 10/13/2017 LAB LABEL Final Assessment and Plan: 52 y.o. female with past medical history significant for HTN , s/p donor kidney transplant 11 years ago lost the kidney due to chronic rejection, currently on PD, stop smoking 2 days ago, she is here for re do donor kidney transplant evaluation. Plan: The patient was seen and examined. she is a ok surgical candidate as long as she stop smoking. I went ahead in discussed with the patient surgical aspects of kidney transplant, life commitment as well as elaborated on versus living donor transplants, immunosuppression, risks and benefits in detail. We will follow the patient's CT scan. If the patient clears from cardio/pulmonary and psycho/social standpoint,she does not have surgical contraindication for the kidney transplant, the patient will be discussed in our selection committee. Vince Kim MD in this encounter Plan of Treatment Not on fileas of this encounter Visit Diagnoses Diagnosis Pre-transplant evaluation for kidney transplant - Primary Other specified pre-operative examination
--- OUTSIDE RECORDS SUMMARY | 2018-03-25 09:38 | XMS REPORT | Continuity of Care Document ---
Author Author [facility] Organization [facility] Address Unknown Phone Unavailable Allergies Active Description Code Type Severity Reaction Onset Reported/Identified Relationship to Patient Clinical Status Yes [id number] (SULFA (SULFONAMIDE ANTIBIOTICS)) [id number] (SULFA (SULFONAMIDE ANTIBIOTICS)) Mild N/A 10/10/2009 Yes Gentamicin [id number] Drug Allergy Mild N/A 02/10/2018 Yes morphine [id number] Drug Allergy Mild N/A 02/10/2018 Medications There is no data. Problems Date Dx Coded Attending Type Code Diagnosis Diagnosed By 06/10/2013 WILLIE FULLER DO Ot 719.46 JOINT PAIN-L/LEG 06/10/2013 WILLIE FULLER DO Ot 729.5 PAIN IN LIMB 06/10/2013 WILLIE FULLER DO Ot 729.81 SWELLING OF LIMB 08/14/2015 WILLIE FULLER DO Ot 717.7 08/14/2015 WILLIE FULLER DO Ot 719.06 08/14/2015 WILLIE FULLER DO Ot 719.46 11/12/2015 NELLIE MEDRANO, TAMMY Ot N28.9 DISORDER OF KIDNEY AND URETER, UNSPECIFI 11/12/2015 NELLIE MEDRANO, TAMMY Ot Z94.0 KIDNEY TRANSPLANT STATUS 02/10/2018 WILLIE FULLER DO Ot 717.7 CHONDROMALACIA PATELLAE 02/10/2018 WILLIE FULLER DO Ot 719.06 JOINT EFFUSION-L/LEG 02/10/2018 WILLIE FULLER DO Ot 719.46 JOINT PAIN-L/LEG 02/10/2018 NELLIE MEDRANO, TAMMY Ot N28.9 DISORDER OF KIDNEY AND URETER, UNSPECIFI 02/10/2018 NELLIE MEDRANO, TAMMY Ot Z94.0 KIDNEY TRANSPLANT STATUS 02/10/2018 NELLIE MEDRANO, TAMMY Ot N28.9 DISORDER OF KIDNEY AND URETER, UNSPECIFI 02/10/2018 NELLIE MEDRANO, TAMMY Ot Z94.0 KIDNEY TRANSPLANT STATUS 02/10/2018 CHRISSIE MATTHEWS APRN Ot S61.210A LACERATION W/O FB OF R IDX FNGR W/O TATIANNA 02/10/2018 CHRISSIE MATTHEWS APRN Ot W18.09XA STRIKING AGAINST OTH OBJECT W SUBSEQUENT 02/10/2018 CHRISSIE MATTHEWS APRN Ot W23.0XXA CAUGHT, CRUSH, JAMMED, OR PINCHED BETW M 02/10/2018 CHRISSIE MATTHEWS APRN Ot Z88.1 ALLERGY STATUS TO OTHER ANTIBIOTIC AGENT 02/10/2018 CHRISSIE MATTHEWS APRN Ot Z88.5 ALLERGY STATUS TO NARCOTIC AGENT STATUS 02/10/2018 JONNY DO, WILLIE K Ot 717.7 CHONDROMALACIA PATELLAE 02/10/2018 JONNY DO, WILLIE K Ot 719.06 JOINT EFFUSION-L/LEG 02/10/2018 JONNY DO, WILLIE K Ot 719.46 JOINT PAIN-L/LEG 02/10/2018 NELLIE MEDRANO, TAMMY Ot N28.9 DISORDER OF KIDNEY AND URETER, UNSPECIFI 02/10/2018 NELLIE MEDRANO, TAMMY Ot Z94.0 KIDNEY TRANSPLANT STATUS 02/13/2018 CHRISSIE MATTHEWS APRN Ot S61.210A LACERATION W/O FB OF R IDX FNGR W/O TATIANNA 02/13/2018 CHRISSIE MATTHEWS APRN Ot W18.09XA STRIKING AGAINST OTH OBJECT W SUBSEQUENT 02/13/2018 CHRISSIE MATTHEWS APRN Ot W23.0XXA CAUGHT, CRUSH, JAMMED, OR PINCHED BETW M 02/13/2018 CHRISSIE MATTHEWS APRN Ot Z88.1 ALLERGY STATUS TO OTHER ANTIBIOTIC AGENT 02/13/2018 CHRISSIE MATTHEWS APRN Ot Z88.5 ALLERGY STATUS TO NARCOTIC AGENT STATUS 02/13/2018 CHRISSIE MATTHEWS APRN Ot S61.210A LACERATION W/O FB OF R IDX FNGR W/O TATIANNA 02/13/2018 CHRISSIE MATTHEWS APRN Ot W18.09XA STRIKING AGAINST OTH OBJECT W SUBSEQUENT 02/13/2018 CHRISSIE MATTHEWS APRN Ot W23.0XXA CAUGHT, CRUSH, JAMMED, OR PINCHED BETW M 02/13/2018 CHRISSIE MATTHEWS APRN Ot Z88.1 ALLERGY STATUS TO OTHER ANTIBIOTIC AGENT 02/13/2018 CHRISSIE MATTHEWS IT SENIOR SOFTWARE ENGINEER JAVA Ot Z88.5 ALLERGY STATUS TO NARCOTIC AGENT STATUS Procedures There is no data. Results Test Result Range Holter Montor 24 Hour - 02/28/17 11:11 Holter Monitor 24 Hour Complete Encounters ACCT No. Visit Date/Time Discharge Status Pt. Type Provider Facility Loc./Unit Complaint [id number] 12/12/2014 09:52:55 12/12/2014 23:59:59 CLS Outpatient RENEE GONZALEZ [id number] 02/10/2018 14:15:00 02/10/2018 15:53:00 DIS Emergency CHRISSIE MATTHEWS APRN [facility] ER RT INDEX FINGER LACERATION [id number] 11/13/2015 00:08:00 11/13/2015 23:59:59 CLS Preadmit TAMMY BALLARD MD [facility] LAB TRANSPLANT-KIDNEY [id number] 08/14/2015 10:30:00 11/12/2015 00:01:00 DIS Outpatient TAMMY BALLARD MD [facility] LAB TRANSPLANT-KIDNEY [id number] 06/15/2013 11:59:00 06/15/2013 23:59:59 CLS Outpatient WILLIE FULLER DO [facility] RAD RT KNEE PAIN AND SWELLING [id number] 06/10/2013 05:31:00 06/10/2013 08:00:00 DIS Emergency WILLIE FULLER DO [facility] ER LEG PAIN [id number] 02/28/2017 10:54:00 02/28/2017 23:59:00 DIS Outpatient Eligio Antonio
[2018-03-25] MEDS ORDERED: LISI40TA (09:56)
--- NOTE | 2018-03-25 10:40 | Diagnostic Imaging Report ---
INDICATION: Abdominal pain. Patient is on dialysis. FINDINGS: KUB does show peritoneal dialysis catheter within the stomach. Catheter appears in good position in the pelvis. Catheter does appear intact. There is no evidence of constipation. Stool and gas pattern appears normal. No organomegaly or pathologic calcifications. IMPRESSION: Peritoneal dialysis catheter present within the pelvis. No evidence of bowel obstruction. Dictated by: Dictated on workstation # [id number]
[2018-03-25 11:03] LABS: BASOPHILS % (AUTO) 0 % (0-10); EOSINOPHILS # (AUTO) 1.1 10^3/uL (0.0-0.3); EOSINOPHILS % (AUTO) 8 % (0-10); HEMATOCRIT 29 % (35-52); HEMOGLOBIN 9.5 G/DL (11.5-16.0); LYMPHOCYTES # (AUTO) 1.2 X 10^3 (1.0-4.0); LYMPHOCYTES % (AUTO) 8 % (12-44); MEAN CORPUSCULAR HEMOGLOBIN 31 PG (25-34); MEAN CORPUSCULAR HGB CONC 33 G/DL (32-36); MEAN CORPUSCULAR VOLUME 95 FL (80-99); MONOCYTES # (AUTO) 0.9 X 10^3 (0.0-1.0); MONOCYTES % (AUTO) 6 % (0-12); NEUTROPHILS # (AUTO) 10.7 X 10^3 (1.8-7.8); NEUTROPHILS % (AUTO) 77 % (42-75); PLATELET COUNT 105 10^3/uL (130-400); RED BLOOD COUNT 3.03 10^6/uL (4.35-5.85); RED CELL DISTRIBUTION WIDTH 16.8 % (10.0-14.5); WHITE BLOOD COUNT 13.8 10^3/uL (4.3-11.0)
--- NOTE | 2018-03-25 11:15 | ED Abdominal Pain ---
General Chief Complaint: Abdominal/GI Problems Stated Complaint: ABD PAIN, ON DIALYSIS Nursing Triage Note: TO ROOM REPORTS IS ON PERITONEAL DIALYSIS AND HAVING ABD PAIN X 2 DAYS. Sepsis Screen: No Definite Risk Source of Information: Patient Exam Limitations: No Limitations History of Present Illness Date Seen by Provider: Mar 25, 2018 Time Seen by Provider: 11:11 Initial Comments The patient is a 53-year-old white female who presents with complaints of abdominal pain. She had a kidney transplant previously which lasted for 11 years. Currently she is on peritoneal dialysis while awaiting a new transplant. She reports that on she began to have a nonspecific sort of abdominal pain. This was in the periumbilical area. She continued to have bowel movements. If anything they have been looser than usual. She is not aware of a fever. She reports that the dialysate has looked reasonably clear. Yesterday she noted some rubbery material on the catheters when she disconnected. She is noted to have a 100 temperature here. Timing/Duration: 2-3 Days Severity/Quality: Mild, Moderate Location: Periumbilical Allergies and Home Medications Allergies Coded Allergies: gentamicin (Verified Allergy, Mild, 02/10/18) morphine (Verified Allergy, Mild, 02/10/18) amoxicillin (Verified Allergy, Unknown, 03/25/18) clavulanic acid (Verified Allergy, Unknown, 03/25/18) Uncoded Allergies: [id number] (SULFA (SULFONAMIDE ANTIBIOTICS)) (Allergy, Mild, 10/10/09) Home Medications Hydrocodone Bit/Acetaminophen 1 Tab Tablet, 1-2 TAB PO Q6H FOR PAIN Prescribed by: WILLIE FULLER on 06/10/13719 Mycophenolate Mofetil 500 Mg Tablet, 500 MG PO BID, (Reported) Tacrolimus Anhydrous 1 Mg Capsule, 2 MG PO BID, (Reported) Tramadol Hcl 50 Mg Tab, 50 MG PO Q4-6HOURS PRN FOR PAIN Prescribed by: WILLIE FULLER on 06/10/13719 Venlafaxine Hcl 75 Mg Tablet, 75 MG PO BID, (Reported) Patient Home Medication List Home Medication List Reviewed: Yes Review of Systems Constitutional: see HPI EENTM: No Symptoms Reported Respiratory: No Symptoms Reported Cardiovascular: No Symptoms Reported Gastrointestinal: See HPI Genitourinary: No Symptoms Reported Musculoskeletal: no symptoms reported Skin: no symptoms reported Psychiatric/Neurological: No Symptoms Reported Endocrine: No Symptoms Reported Hematologic/Lymphatic: No Symptoms Reported Past Gvzvlcw-Ujlkhy-Dqzpmh Hx Patient Social History Alcohol Use: Denies Use Recreational Drug Use: No Smoking Status: Never a Smoker 2nd Hand Smoke Exposure: No Recent Foreign Travel: No Contact w/Someone Who Travel: No Recent Infectious Disease Expo: No Immunizations Up To Date Tetanus Booster (TDap): Unknown Past Medical History Surgeries: Yes Respiratory: Yes Asthma Cardiac: No Neurological: No HELIUM ARC WELDER History: Hysterectomy Renal Failure Gastrointestinal: No Musculoskeletal: Yes Degenerate Disk Disease, Chronic Back Pain Endocrine: No Cancer: Yes Skin Psychosocial: No Integumentary: No Blood Disorders: No Physical Exam Vital Signs Vital Signs - First Documented 03/25/18 09:39 Temp 100.0 Pulse 99 Resp 18 B/P (MAP) 213/177 (189) Pulse Ox 92 O2 Delivery Room Air Capillary Refill : Less Than 3 Seconds Height/Weight/BMI Height: 5'5" Weight: 200lbs. oz. 90.813857zp; 33.28 BMI Method:Stated General Appearance: WD/WN, no apparent distress HEENT: normal ENT inspection Neck: full range of motion Respiratory: chest non-tender, lungs clear, normal breath sounds, no respiratory distress, no accessory muscle use Cardiovascular: normal peripheral pulses, regular rate, rhythm, no edema, no gallop, no JVD, no murmur Gastrointestinal: normal bowel sounds, non tender, soft, no organomegaly, no pulsatile mass Extremities: normal range of motion, non-tender, normal inspection, no pedal edema, no calf tenderness Back: normal inspection Neurologic/Psychiatric: rest room matron II-XII nml as tested, no motor/sensory deficits, alert, normal mood/affect, oriented x 3 Skin: normal color, warm/dry Lymphatic: no adenopathy Procedures/Interventions Suture Size: 5-0 Progress/Results/Core Measures Results/Orders Lab Results Laboratory Tests Test 03/25/18 10:20 03/25/18 11:45 Range/Units White Blood Count 13.8 H 4.3-11.0 10^3/uL Red Blood Count 3.03 L 4.35-5.85 10^6/uL Hemoglobin 9.5 L 11.5-16.0 G/DL Hematocrit 29 L 35-52 % Mean Corpuscular Volume 95 80-99 FL Mean Corpuscular Hemoglobin 31 25-34 PG Mean Corpuscular Hemoglobin Concent 33 32-36 G/DL Red Cell Distribution Width 16.8 H 10.0-14.5 % Platelet Count 105 L 130-400 10^3/uL Mean Platelet Volume 12.0 H 7.4-10.4 FL Neutrophils (%) (Auto) 77 H 42-75 % Lymphocytes (%) (Auto) 8 L 12-44 % Monocytes (%) (Auto) 6 0-12 % Eosinophils (%) (Auto) 8 0-10 % Basophils (%) (Auto) 0 0-10 % Neutrophils # (Auto) 10.7 H 1.8-7.8 X 10^3 Lymphocytes # (Auto) 1.2 1.0-4.0 X 10^3 Monocytes # (Auto) 0.9 0.0-1.0 X 10^3 Eosinophils # (Auto) 1.1 H 0.0-0.3 10^3/uL Basophils # (Auto) 0.0 0.0-0.1 10^3/uL Sodium Level 139 135-145 MMOL/L Potassium Level 5.6 H 3.6-5.0 MMOL/L Chloride Level 99 98-107 MMOL/L Carbon Dioxide Level 21 21-32 MMOL/L Anion Gap 19 H 5-14 MMOL/L Blood Urea Nitrogen 70 H 7-18 MG/DL Creatinine 16.10 H 0.60-1.30 MG/DL Estimat Glomerular Filtration Rate 2 BUN/Creatinine Ratio 4 Glucose Level 82 70-105 MG/DL Calcium Level 9.7 8.5-10.1 MG/DL Total Bilirubin 0.5 0.1-1.0 MG/DL Aspartate Amino Transf (AST/SGOT) 15 5-34 U/L Alanine Aminotransferase (ALT/SGPT) 6 0-55 U/L Alkaline Phosphatase 57 40-136 U/L Total Protein 6.5 6.4-8.2 GM/DL Albumin 3.4 3.2-4.5 GM/DL Lipase 71 8-78 U/L Urine Color YELLOW Urine Clarity MUCOUS Urine pH 8 5-9 Urine Specific [place] 1.015 L 1.016-1.022 Urine Protein 4+ NEGATIVE Urine Glucose (UA) 1+ H NEGATIVE Urine Ketones NEGATIVE NEGATIVE Urine Nitrite NEGATIVE NEGATIVE Urine Bilirubin NEGATIVE NEGATIVE Urine Urobilinogen NORMAL NORMAL MG/DL Urine Leukocyte Esterase NEGATIVE NEGATIVE Urine RBC (Auto) 1+ H NEGATIVE Urine RBC 10-25 H /HPF Urine WBC 0 /HPF Urine Crystals NONE /LPF Urine Bacteria TRACE /HPF Urine Casts NONE /LPF Urine Mucus NEGATIVE /LPF Urine Culture Indicated NO My Orders Orders - JEREMIAS OTT MD Cbc With Automated Diff (03/25/18 09:54) Comprehensive Metabolic Panel (03/25/18 09:54) Lipase (03/25/18 09:54) Abdomen/[place]ub [place] (03/25/18 09:54) Ns Iv 500 Ml (Sodium Chloride 0.9%) (03/25/18 11:38) Ua Culture If Indicated (03/25/18 11:55) Ct Abdomen/Pelvis W (03/25/18 12:27) Iohexol Injection (Omnipaque 350 Mg/Ml 1 (03/25/18 13:00) Sodium Chloride Flush (Catheter Flush Sy (03/25/18 13:00) Ns (Ivpb) (Sodium Chloride 0.9%) (03/25/18 13:00) Pharmacy Communication (Pharmacy Communi (03/25/18 12:51) Urine Culture (03/25/18 11:45) Ondansetron Injection (Zofran Injectio (03/25/18 13:30) Medications Given in ED Current Medications Medications Dose Ordered Sig/Patience Route Start Time Stop Time Status Last Admin Dose Admin Iohexol 50 ml ONCE ONCE IV 03/25/18 13:00 03/25/18 13:01 DC 03/25/18 13:49 50 ML Ondansetron HCl 8 mg ONCE ONCE IVP 03/25/18 13:30 03/25/18 13:31 DC 03/25/18 13:29 8 MG Sodium Chloride 10 ml NEEDED PRN IV 03/25/18 13:00 03/25/18 13:49 10 ML Sodium Chloride 250 ml ONCE ONCE IV 03/25/18 13:00 03/25/18 13:01 DC 03/25/18 13:49 80 ML Vital Signs/I&O 03/25/18 09:39 Temp 100.0 Pulse 99 Resp 18 B/P (MAP) 213/177 (189) Pulse Ox 92 O2 Delivery Room Air Blood Pressure Mean: 189 Departure Communication (Admissions) 1150. The patient's peritoneal dialysis catheter was prepped with Betadine. With sterile technique 25 mL of selena colored clear fluid was withdrawn from the peritoneal cavity. This was submitted to laboratory for cell count and culture 1410 Dr. Hemphill called the report on the CT scan. He thought that it appeared there was thickening of the small intestine consistent with enteritis. He also reported that the 2 kidneys did not appear to be functioning. I informed him this was already known. Impression Primary Impression: Enteritis Disposition: HOME, SELF-CARE Condition: Stable/Unchanged Departure-Patient Inst. Decision time for Depature: 14:19 Referrals: [facility] (PCP) Primary Care Physician Add. Discharge Instructions: All discharge instructions reviewed with patient and/or family. Voiced understanding. Clear liquid diet for 24 hours and then progress as tolerated. Hydrocodone as directed for pain. It should be noted this is constipating Resume peritoneal dialysis as per routine Scripts Hydrocodone/Acetaminophen ([place] 7.5-325 Tablet) 1 Each Tablet 1 EACH PO 4 TIMES A DAY, #10 TAB Prov: JEREMIAS OTT MD 03/25/18 JEREMIAS OTT MD Mar 25, 2018 11:15
[2018-03-25 11:25] LABS: ALBUMIN 3.4 GM/DL (3.2-4.5); BILIRUBIN,TOTAL 0.5 MG/DL (0.1-1.0); CALCIUM 9.7 MG/DL (8.5-10.1); CREATININE SERUM 16.1 MG/DL (0.60-1.30); POTASSIUM 5.6 MMOL/L (3.6-5.0); TOTAL PROTEIN 6.5 GM/DL (6.4-8.2)
[2018-03-25] MEDS ORDERED: NS IV 500 ML 0 ML ONE (11:38)
[2018-03-25 12:09] LABS: BILIRUBIN,URINE NEGATIVE (NEGATIVE); CLARITY,URINE MUCOUS; COLOR,URINE YELLOW; GLUCOSE, URINE (UA) 1+ (NEGATIVE); KETONES,URINE NEGATIVE (NEGATIVE); LEUKOCYTE ESTERASE ,URINE NEGATIVE (NEGATIVE); NITRITE,URINE NEGATIVE (NEGATIVE); PH,URINE 8 (5-9); PROTEIN,URINE 4+ (NEGATIVE); UROBILINOGEN,URINE NORMAL (NORMAL)
[2018-03-25 12:53] LABS: WBC,URINE 0 /HPF
[2018-03-25 12:54] LABS: BACTERIA,URINE TRACE /HPF
[2018-03-25] MEDS ORDERED: NS 250 ML (IVPB) BAG IV ONE (13:00)
[2018-03-25] MEDS ORDERED: CATHETER FLUSH 10 ML SYR IV PRN (13:00)
[2018-03-25] MEDS ORDERED: IOHEXOL 350 MG/ML 100 ML (OMNIPAQUE 350) VIAL IV ONE (13:00)
[2018-03-25] MEDS ORDERED: ONDANSETRON 4 MG/2 ML (SDV) Z0FRAN IVP ONE (13:30)
[2018-03-25] MEDS ORDERED: HYDR-756 PO (14:21)
--- NOTE | 2018-03-25 14:22 | Diagnostic Imaging Report ---
PROCEDURE: CT abdomen and pelvis with contrast. TECHNIQUE: Multiple contiguous axial images were obtained through the abdomen and pelvis after administration of intravenous contrast. INDICATION: Abdominal pain The previous CT abdomen / pelvis exam of 11/01/2006 noted that the kidneys were small. On this exam, both kidneys do appear to be atrophic. In the interval since the prior study, a peritoneal catheter has been inserted and it is my understanding that the patient is scheduled to have peritoneal dialysis within the next day or so. There is a transplanted kidney in the right lower quadrant and there is arterial blood flow to the transplanted kidney. On the delayed series, however, there does not appear to be any significant excretion of the contrast by the right kidney and there is no contrast within the bladder. Therefore, the transplanted right kidney is non-functional. There is a small amount of free fluid in the abdomen. This is nonspecific. There does appear to be some thickening of the wall of several segments of small bowel low in the pelvis on the right. This finding does raise the question of enteritis. There is no evidence for obstruction of the small bowel. There is no pelvic mass or abscess visualized. The liver, spleen, pancreas, adrenals, gallbladder, aorta and inferior vena cava showed no sign of an acute abnormality. The stomach is not well-distended and consequently difficult to assess. The uterus is surgically absent. The appendix was not well-visualized but there are no indirect signs of acute appendicitis. There is a 5.0 x 5.8 cm cyst adjacent to the right iliac bone. This cyst was present on the prior exam of 2006 at which time it measured 2.4 x 3.5 cm. The precise etiology of this finding is not certain but I do suspect it is a benign lesion even though it has increased in size since the prior exam. The bone windows show no sign of a fracture or of a destructive lesion. The lung bases are clear. IMPRESSION: 1. The thickened appearance of the wall of several segments of small bowel low in the pelvis is nonspecific but may well be secondary to enteritis. There is no evidence for obstruction of the small bowel and there is no mass or abscess identified. 2. The kidneys are atrophic and there is a peritoneal dialysis catheter in place. The transplanted right kidney is non-functioning. 3. There is no acute abnormality of the abdomen or pelvis noted otherwise. 4. The large cyst adjacent to the right iliac bone is of uncertain etiology although most likely benign. 5. The results were discussed with Dr. Bullock. Dictated by: Dictated on workstation # [id number]
[2018-03-25] MEDS ORDERED: fentaNYL INJECTION 100 MCG/2 ML AMP IVP ONE (14:30)
[2018-03-25 14:37] VITALS: BP 201/147
[2018-03-25] MEDS ORDERED: CLON0.1T (14:42)
== END 2018-03-25 14:37 | disposition home or self-care (01) ==
LOC: EDUNIT# 09:29 → ER 09:31
DX: K52.9 Noninfective gastroenteritis and colitis, unspecified (principal); J45.909 Unspecified asthma, uncomplicated; Z85.828 Personal history of other malignant neoplasm of skin; Z90.710 Acquired absence of both cervix and uterus; Z94.0 Kidney transplant status; Z99.2 Dependence on renal dialysis; Z88.1 Allergy status to other antibiotic agents; Z88.5 Allergy status to narcotic agent
CPT/HCPCS: 36415; 74018; 74177; 80053; 81000; 83690; 85025; 87088; 96374; 96375

== ENCOUNTER 2018-06-16 15:38 | Emergency (ER) | payer MEDICARE ==
[~2018-06-16] VITALS: Ht 167.6 cm; Wt 77.1 kg
[~2018-06-16 15:38] MED LIST changes: +CLON0.1T; +HYDR-4227 PO; +LISI40TA
[2018-06-16] MEDS ORDERED: ASPIRIN 81 MG CHEW (CHILDREN'S ASA) PO ONE (15:45)
[2018-06-16] MEDS ORDERED: RT-ALBUTEROL SULF 2.5 MG/3 ML PRE-MIX VIAL ONE (15:51)
[2018-06-16 16:00] LABS: BASOPHILS % (AUTO) 1 % (0-10); EOSINOPHILS % (AUTO) 12 % (0-10); LYMPHOCYTES % (AUTO) 11 % (12-44); MEAN CORPUSCULAR HEMOGLOBIN 32 PG (25-34); MEAN CORPUSCULAR HGB CONC 33 G/DL (32-36); MEAN CORPUSCULAR VOLUME 97 FL (80-99); MEAN PLATELET VOLUME 10.5 FL (7.4-10.4); MONOCYTES % (AUTO) 5 % (0-12); NEUTROPHILS % (AUTO) 71 % (42-75); PLATELET COUNT 158 10^3/uL (130-400); RED CELL DISTRIBUTION WIDTH 15.1 % (10.0-14.5); WHITE BLOOD COUNT 8.6 10^3/uL (4.3-11.0)
[2018-06-16 16:01] LABS: EOSINOPHILS # (AUTO) 1.1 10^3/uL (0.0-0.3); MONOCYTES # (AUTO) 0.4 X 10^3 (0.0-1.0); NEUTROPHILS # (AUTO) 6.2 X 10^3 (1.8-7.8)
--- NOTE | 2018-06-16 16:09 | ED Dyspnea ---
General Stated Complaint: CHEST PAIN Source of Information: Patient Exam Limitations: No Limitations History of Present Illness Date Seen by Provider: Jun 16, 2018 Time Seen by Provider: 16:07 Initial Comments To ER per EMS from home with reports of shortness of breath. This began several days ago and has gotten progressively worse. She reports a history of COPD and continues to smoke cigarettes but she is down to one half pack per day. She states that she got significant only worse about a day or 2 ago. EMS noted her to be hypoxic at about 86% range and so she was given nonrebreather, DuoNeb and sent to ER. Upon ER arrival she is noted to have diminished lung sounds. States that she does not have a regular physician, formerly saw Dr. Antonio. SHe did have chest pain described as tightness earlier but that resolved prior to arrival. She has anuric end-stage renal disease on peritoneal dialysis at home most recently last night. [employer] is based out [facility]. Timing/Duration: Constant Severity: Moderate Allergies and Home Medications Allergies Coded Allergies: gentamicin (Verified Allergy, Mild, 02/10/18) morphine (Verified Allergy, Mild, 02/10/18) amoxicillin (Verified Allergy, Unknown, 03/25/18) clavulanic acid (Verified Allergy, Unknown, 03/25/18) Uncoded Allergies: [id number] (SULFA (SULFONAMIDE ANTIBIOTICS)) (Allergy, Mild, 10/10/09) Home Medications Hydrocodone Bit/Acetaminophen 1 Tab Tablet, 1-2 TAB PO Q6H FOR PAIN Prescribed by: WILLIE FULLER on 06/10/13 0720 Hydrocodone/Acetaminophen 1 Each Tablet, 1 EACH PO 4 TIMES A DAY Prescribed by: JEREMIAS OTT on 03/25/18 1421 Mycophenolate Mofetil 500 Mg Tablet, 500 MG PO BID, (Reported) Tacrolimus Anhydrous 1 Mg Capsule, 2 MG PO BID, (Reported) Tramadol Hcl 50 Mg Tab, 50 MG PO Q4-6HOURS PRN FOR PAIN Prescribed by: WILLIE FULLER on 06/10/13 0720 Venlafaxine Hcl 75 Mg Tablet, 75 MG PO BID, (Reported) Patient Home Medication List Home Medication List Reviewed: Yes Review of Systems Review of Systems Constitutional: see HPI EENTM: see HPI Respiratory: see HPI, cough, short of breath Cardiovascular: see HPI, chest pain Genitourinary: no symptoms reported Musculoskeletal: no symptoms reported Skin: no symptoms reported Psychiatric/Neurological: No Symptoms Reported Past Dvneout-Hmnfwo-Kgziix Hx Patient Social History 2nd Hand Smoke Exposure: No Immunizations Up To Date Tetanus Booster (TDap): Unknown Past Medical History Surgeries: Yes Respiratory: Yes Asthma Cardiac: No Neurological: No REDYE HAND History: Hysterectomy Renal Failure Gastrointestinal: No Musculoskeletal: Yes Degenerate Disk Disease, Chronic Back Pain Endocrine: No Cancer: Yes Skin Psychosocial: No Integumentary: No Blood Disorders: No Physical Exam Vital Signs Vital Signs - First Documented 06/16/18 06/16/18 15:41 15:59 Temp 97.3 Pulse 84 Resp 18 B/P (MAP) 174/114 (134) Pulse Ox 94 O2 Delivery Room Air O2 Flow Rate 15.00 Capillary Refill : Height, Weight, BMI Height: 5'5" Weight: 200lbs. oz. 90.429732gd; 33.28 BMI Method:Stated General Appearance: No Apparent Distress, WD/WN HEENT: PERRL/EOMI, TMs Normal Neck: Full Range of Motion, Normal Inspection Respiratory: No Accessory Muscle Use, No Respiratory Distress Cardiovascular: Regular Rate, Rhythm, Normal Peripheral Pulses Gastrointestinal: Normal Bowel Sounds, Non Tender, Soft Extremity: Normal Capillary Refill, Normal Inspection Neurologic/Psychiatric: Alert, Oriented x3 Skin: Normal Color, Warm/Dry Procedures/Interventions Suture Size: 5-0 Progress/Results/Core Measures Results/Orders Lab Results Laboratory Tests Test 06/16/18 15:47 Range/Units White Blood Count 8.6 4.3-11.0 10^3/uL Red Blood Count 2.00 L 4.35-5.85 10^6/uL Hemoglobin 6.3 *L 11.5-16.0 G/DL Hematocrit 19 *L 35-52 % Mean Corpuscular Volume 97 80-99 FL Mean Corpuscular Hemoglobin 32 25-34 PG Mean Corpuscular Hemoglobin Concent 33 32-36 G/DL Red Cell Distribution Width 15.1 H 10.0-14.5 % Platelet Count 158 130-400 10^3/uL Mean Platelet Volume 10.5 H 7.4-10.4 FL Neutrophils (%) (Auto) 71 42-75 % Lymphocytes (%) (Auto) 11 L 12-44 % Monocytes (%) (Auto) 5 0-12 % Eosinophils (%) (Auto) 12 H 0-10 % Basophils (%) (Auto) 1 0-10 % Neutrophils # (Auto) 6.2 1.8-7.8 X 10^3 Lymphocytes # (Auto) 1.0 1.0-4.0 X 10^3 Monocytes # (Auto) 0.4 0.0-1.0 X 10^3 Eosinophils # (Auto) 1.1 H 0.0-0.3 10^3/uL Basophils # (Auto) 0.0 0.0-0.1 10^3/uL Neutrophils % (Manual) 68 % Lymphocytes % (Manual) 14 % Monocytes % (Manual) 5 % Eosinophils % (Manual) 13 % Hypochromasia MODERATE Crenated Cell SLIGHT Prothrombin Time 15.0 H 12.2-14.7 SEC INR Comment 1.2 0.8-1.4 Activated Partial Thromboplast Time 28 24-35 SEC Sodium Level 138 135-145 MMOL/L Potassium Level 3.9 3.6-5.0 MMOL/L Chloride Level 99 98-107 MMOL/L Carbon Dioxide Level 24 21-32 MMOL/L Anion Gap 15 H 5-14 MMOL/L Blood Urea Nitrogen 53 H 7-18 MG/DL Creatinine 13.05 H 0.60-1.30 MG/DL Estimat Glomerular Filtration Rate 3 BUN/Creatinine Ratio 4 Glucose Level 117 H 70-105 MG/DL Calcium Level 9.2 8.5-10.1 MG/DL Corrected Calcium 10.2 H 8.5-10.1 MG/DL Magnesium Level 2.1 1.8-2.4 MG/DL Total Bilirubin 0.4 0.1-1.0 MG/DL Aspartate Amino Transf (AST/SGOT) 14 5-34 U/L Alanine Aminotransferase (ALT/SGPT) 14 0-55 U/L Alkaline Phosphatase 68 40-136 U/L Myoglobin 201.3 H 10.0-92.0 NG/ML Troponin I 0.60 *H <0.30 NG/ML B-Type Natriuretic Peptide 4080.5 H <100.0 PG/ML Total Protein 5.8 L 6.4-8.2 GM/DL Albumin 2.8 L 3.2-4.5 GM/DL Lipase 88 H 8-78 U/L My Orders Orders - MATTHEWS,PETER J MARKETING SUPPORT COORDINATOR Cbc With Automated Diff (06/16/18 15:40) Magnesium (06/16/18 15:40) Chest 1 View, Ap/Pa Only (06/16/18 15:40) Ekg Tracing (06/16/18 15:40) Cardiac Profile 1 (06/16/18 15:40) Comprehensive Metabolic Panel (06/16/18 15:40) Myoglobin Serum (06/16/18 15:40) Protime With Inr (06/16/18 15:40) Partial Thromboplastin Time (06/16/18 15:40) O2 (06/16/18 15:40) Monitor-Rhythm Ecg Trace Only (06/16/18 15:40) Lipid Panel (06/17/18 06:00) Aspirin Chewable Tablet (Baby Aspirin Ch (06/16/18 15:45) Saline Lock/Iv-Start (06/16/18 15:40) Lipase (06/16/18 15:40) BNP (06/16/18 15:40) Albuterol Pre-Mix Nebs (Rt) (Proventil (06/16/18 15:51) Manual Differential (06/16/18 15:47) Red Cells Leukocytes Reduced (06/16/18 16:11) Type And Screen (06/16/18 16:11) Nitroglycerin 0.4 Mg Btl 25's (Nitrostat (06/16/18 16:45) Hydralazine Injection (Apresoline Inject (06/16/18 17:00) Blood Culture (06/16/18 16:51) Ceftriaxone For Iv Use (Rocephin For I (06/16/18 17:15) Pantoprazole Injection (Protonix Injecti (06/16/18 17:35) Ondansetron Injection (Zofran Injectio (06/16/18 17:35) Medications Given in ED Current Medications Medications Dose Ordered Sig/Patience Route Start Time Stop Time Status Last Admin Dose Admin Hydralazine HCl 10 mg ONCE ONCE IV 06/16/18 17:00 06/16/18 17:01 DC 06/16/18 16:57 10 MG Vital Signs/I&O 06/16/1818 06/16/18 15:41 15:59 17:06 Temp 97.3 Pulse 84 78 Resp 18 17 B/P (MAP) 174/114 (134) Pulse Ox 94 95 96 O2 Delivery Room Air Non Rebreather O2 Flow Rate 15.00 40.00 Diagnostic Imaging Diagonstic Imaging: Xray Plain Films/CT/US/NM/MRI: chest Comments NAME: [facility] REC#: [id number] PT STATUS: REG ER : 1965 PHYSICIAN: CHRISSIE MATTHEWS APRN ADMIT DATE: 06/16/18/ER Draft Date of Exam:06/16/18 CHEST 1 VIEW, AP/PA ONLY INDICATION: Chest tightness and shortness of air x 3 weeks. TECHNIQUE: Single view chest at 4:24 PM. CORRELATION STUDY: 11/01/2006. FINDINGS: The heart size is enlarged with what appears to be at least mild pulmonary vascular congestion. Prominent interstitial markings are compatible with edema. Superimposed apparent airspace disease over the right lung base is suspect for right basilar pneumonia versus asymmetric edema. IMPRESSION: 1. Findings compatible with fluid overload or failure. 2. Superimposed infiltrate-like density at the right lung base could be reflective of underlying pneumonia versus asymmetric edema. Followup imaging is recommended. Dictated on workstation # [id number] Dict: 06/16/188 Trans: 06/16/18 [id number] Interpreted by: AFBI ESCALANTE DO Electronically signed by: Departure Communication (Admissions) I discussed the case with Dr. sadler hospitalist at [facility]. Agrees to accept the patient to the intensive care unit. 2 units of packed red blood cells of been ordered and as soon as they're ready will be transfused. Unfortunately this will worsen her respiratory status. She is been taken off of nonrebreather where she was 100%, transitioned 2 L per nasal cannula and shortly thereafter she became hypoxic at 88%. After reviewing the chest x-ray I then decided to put her on BiPAP. Rocephin has been given. She is an uric I will not order Rocephin. The BiPAP will help with the hypertension of 160/100 and I have also ordered hydralazine. Impression Primary Impression: ESRD (end stage renal disease) on dialysis Additional Impressions: Fluid overload Symptomatic anemia Disposition: SHT-TRM HOSP Condition: Stable Departure-Patient Inst. Referrals: [facility] (PCP/Family) Primary Care Physician CHRISSIE MATTHEWS APRN Jun 16, 2018 16:09
[2018-06-16 16:10] LABS: HEMATOCRIT 19 % (35-52); HEMOGLOBIN 6.3 G/DL (11.5-16.0)
[2018-06-16 16:13] LABS: INR 1.2 (0.8-1.4)
[2018-06-16 16:24] LABS: ALBUMIN 2.8 GM/DL (3.2-4.5); BILIRUBIN,TOTAL 0.4 MG/DL (0.1-1.0); CALCIUM 9.2 MG/DL (8.5-10.1); CREATININE SERUM 13.05 MG/DL (0.60-1.30); MAGNESIUM 2.1 MG/DL (1.8-2.4); POTASSIUM 3.9 MMOL/L (3.6-5.0); TOTAL PROTEIN 5.8 GM/DL (6.4-8.2)
[2018-06-16 16:31] LABS: MYOGLOBIN SERUM 201.3 NG/ML (10.0-92.0)
[2018-06-16 16:41] LABS: EOSINOPHILS % (MANUAL) 13 %; HYPOCHROMASIA MODERATE; LYMPHOCYTES % (MANUAL) 14 %; MONOCYTES % (MANUAL) 5 %; NEUTROPHILS % (MANUAL) 68 %
[2018-06-16 16:42] LABS: CRENATED RBC SLIGHT
[2018-06-16] MEDS ORDERED: NITROGLYCERIN 0.4 MG SL TABS BTL 25'S SL PRN (16:45)
--- NOTE | 2018-06-16 16:55 | Diagnostic Imaging Report ---
INDICATION: Chest tightness and shortness of air x 3 weeks. TECHNIQUE: Single view chest at 4:24 PM. CORRELATION STUDY: 11/01/2006. FINDINGS: The heart size is enlarged with what appears to be at least mild pulmonary vascular congestion. Prominent interstitial markings are compatible with edema. Superimposed apparent airspace disease over the right lung base is suspect for right basilar pneumonia versus asymmetric edema. IMPRESSION: 1. Findings compatible with fluid overload or failure. 2. Superimposed infiltrate-like density at the right lung base could be reflective of underlying pneumonia versus asymmetric edema. Followup imaging is recommended. Dictated by: Dictated on workstation # [id number]
[2018-06-16] MEDS ORDERED: hydrALAZINE (APESOLINE) 20 MG/ML VIAL IV ONE (17:00)
[2018-06-16 17:06] VITALS: BP 180/120
[2018-06-16] MEDS ORDERED: cefTRIAXone FOR IV USE 1,000 MG in NS (IVPB) 50 ML IV ONE (17:15)
[2018-06-16 17:24] VITALS: BP 180/116
[2018-06-16] MEDS ORDERED: PANTOPRAZOLE 40 MG (PROTONIX) VIAL ONE (17:35)
[2018-06-16] MEDS ORDERED: ONDANSETRON 4 MG/2 ML (SDV) Z0FRAN ONE (17:35)
[2018-06-16] MEDS ORDERED: PANTOPRAZOLE 40 MG (PROTONIX) VIAL IV ONE (17:40)
[2018-06-16] MEDS ORDERED: ONDANSETRON 4 MG/2 ML (SDV) Z0FRAN IVP ONE (17:40)
[2018-06-16 17:59] VITALS: BP 209/117
== END 2018-06-16 17:59 | disposition short-term general hospital (02) ==
LOC: EDUNIT# 15:38 → ER 15:39
DX: J44.9 Chronic obstructive pulmonary disease, unspecified (principal); E87.70 Fluid overload, unspecified; D64.9 Anemia, unspecified; N18.6 End stage renal disease; F17.210 Nicotine dependence, cigarettes, uncomplicated; Z88.5 Allergy status to narcotic agent; Z88.0 Allergy status to penicillin; Z85.828 Personal history of other malignant neoplasm of skin; Z99.2 Dependence on renal dialysis; Z90.710 Acquired absence of both cervix and uterus; Z88.8 Allergy status to other drugs, medicaments and biological substances; Z88.1 Allergy status to other antibiotic agents
CPT/HCPCS: 36415; 71045; 80053; 83690; 83735; 83874; 83880; 84484; 85007; 85027; 85610; 85730; 86850; 86900; 86901; 86920; 87040; 93005; 93041; 94640; 94660

== ENCOUNTER 2018-10-07 18:56 | Emergency (ER) | payer MEDICARE ==
[~2018-10-07] VITALS: Ht 167.6 cm; Wt 73.9 kg
--- OUTSIDE RECORDS SUMMARY | 2018-10-07 19:17 | XMS REPORT | Encounter Summary ---
Author Author [facility] Organization [facility] Address Unknown Phone Unavailable Care Team Providers Care Cooperative Education Coordinator Name Role Phone Brent Jarvis MD Unavailable Jessica Portillo RN Unavailable Unavailable Luz Elena Mireles RN Unavailable Unavailable Yolie Chaves MD Unavailable Phu Luevano MD Unavailable Unavailable Monet Samayoa Unavailable Unavailable Lorene Wheat RN Unavailable Unavailable Eligio Antonio MD PCP Layne Lynn MD Unavailable Laura Gamble RN Unavailable Lucia Brito RN Unavailable Kira Lua MD Unavailable Michelle Kent RN Unavailable Paula Morris Unavailable Unavailable Sadaf Carty Unavailable Unavailable Manuela Urias LPN Unavailable Unavailable Yamilet Don Unavailable Unavailable Jaya Villanueva RN Unavailable Annel Sanchez Unavailable Unavailable Lorene Salvador RN Unavailable Unavailable Lennie Espinal Unavailable Bhumika Guillen MD Unavailable Meagan Santos Unavailable Unavailable Alicia Manrique MEAT CLERK Unavailable Reason for Visit * Reason Comments Other Encounter Details Care Team Description Date Type Department Mikala Mcmullen Other 07/20/2018 Telephone [facility] 1st FLO[address] [place] [address] Social History Date Tobacco Use Types Packs/Day Years Used Started: 06/12/1985 Current Every Day Smoker Cigarettes 0.5 30 Smokeless Tobacco: Current User Alcohol Use Drinks/Week oz/Week Comments Yes 0 Standard 0.0 occassional drinks or equivalent Sex Assigned at Date Recorded Not on file Industry Job Start Date Occupation Not on file Not on file Not on file Travel End Travel History Travel Start No recent travel history available. as of this encounter Functional Status Date of Assessment Functional Status Response 01/16/2018 Does the patient have a hearing impairment: No 01/16/2018 Does the patient have a visual impairment: Yes 01/16/2018 Does the patient have impaired ambulation: No 01/16/2018 Does the patient have an activity of daily living No (ADL) impairment: 01/16/2018 Does the patient have an instrumental activity of No daily living (IADL) impairment: Date of Assessment Cognitive Status Response 01/16/2018 Does the patient have a cognitive impairment: No as of this encounter Miscellaneous Notes * Telephone Encounter - Mikala Mcmullen - 07/20/2018 10:01 AM BRILLIANDEER LOOPER DANTE spoke with KEITH Laguna at [facility] [phone] to follow up on patient's PD adherence. DANTE spoke with KEITH Laguna in April and she reported she was having some compliance concerns (patient went on vacation to [place] and did not bring her cycler with her and came back fluid overload). Today KEITH Laguna states pt has been doing well for the past few months or more. She explained she was on leave for six weeks and when she returned pt's compliance to PD improved. She states she has been completing her treatments, coming in center for her labs and appointments with progressive die maker. She denies any current concerns for transplant candidacy. Mikala Mcmullen LMSW Transplant Top Flavor Attendant LIANDEER LOOPER in this encounter Plan of Treatment Not on fileas of this encounter Visit Diagnoses Not on filein this encounter
--- OUTSIDE RECORDS SUMMARY | 2018-10-07 19:17 | XMS REPORT | Encounter Summary ---
Author Author [facility] Organization [facility] Address Unknown Phone Unavailable Care Team Providers Care Frog Shaker Name Role Phone Brent Jarvis MD Unavailable [...] Unavailable Meagan Santos Unavailable Unavailable Alicia Manrique HEMATOLOGY SUPERVISOR Unavailable Reason for Visit * Reason Comments Kidney Evaluation Encounter Details Care Team Description Date Type Department Jenna Mireles RN Kidney Evaluation 07/20/2018 Telephone [facility] 1st FLO[address] [place] [address] Social History Date Tobacco Use Types Packs/Day [...] Telephone Encounter - Jenna Mireles RN - 07/20/2018 10:25 AM CHILD AND ADOLESCENT PSYCHOLOGIST Called and left voicemail about following up with testing. D AND ADOLESCENT PSYCHOLOGIST in this encounter Plan of Treatment Not on fileas of this encounter Visit Diagnoses Not on filein this encounter
--- OUTSIDE RECORDS SUMMARY | 2018-10-07 19:17 | XMS REPORT | Encounter Summary ---
Author Author [facility] Organization [facility] Address Unknown Phone Unavailable Care Team Providers Care Cytogenetic Technician Name Role Phone Brent Jarvis MD Unavailable [...] Unavailable Meagan Santos Unavailable Unavailable Alicia Manrique WHEEL SETTER Unavailable Reason for Visit * Reason Comments Kidney Evaluation Encounter Details Care Team Description Date Type Department Jenna Mireles RN Kidney Evaluation 07/10/2018 Telephone [facility] [address]st [address]LO[address] [place] [address] Social History Date Tobacco Use Types Packs/Day [...] Telephone Encounter - Jenna Mireles RN - 07/10/2018 1:54 PM BOILER ENGINEER Called Ju's PCP [phone] to follow up on mammo and colonoscopy. Patient has yet to complete those items even though it was discussed at last appointment in January. RN said she would reach out to patient to try and schedule those tests. ER ENGINEER in this encounter Plan of Treatment Not on fileas of this encounter Visit Diagnoses Not on filein this encounter
--- OUTSIDE RECORDS SUMMARY | 2018-10-07 19:17 | XMS REPORT | Encounter Summary ---
Author Author [facility] Organization [facility] Address Unknown Phone Unavailable Care Team Providers Care Calender Machine Operator Helper Name Role Phone Brent Jarvis MD Unavailable [...] Unavailable Meagan Santos Unavailable Unavailable Alicia Manrique NETWORK SYSTEMS CONSULTANT Unavailable Reason for Visit * Reason Comments Kidney Evaluation Encounter Details Care Team Description Date Type Department Jenna Mireles RN Kidney Evaluation 09/19/2018 Telephone [facility] 1st FLO[address] [place] [address] Social History Date Tobacco Use Types Packs/Day [...] encounter Miscellaneous Notes * Telephone Encounter - Lucia Brito RN - 09/20/2018 3:20 PM WRAPPING CHECKER Attempted to contact dialysis nurse regarding message about IS meds. L/m for return call with approp phone numbers to contact. 09/20 @ 2026 Luz Elena returned call. Discussed medications with Luz Elena. Pt states that she received Tacrolimus from Dr. Luevano 4 months ago and is taking 7mg bid. This NC stated that she was not on that medication and was taking Astagraf XL 5mg daily since last visit and she was not seen by Dr Ahn or given a script by him recently. Will discuss further care with renal team. Luz Elean stated pt was obtaining labs tomorrow. FK level should be 4-8 range per last note from DC. Pt was instructed to RTC in 6 months from last visit in Oct, 2017. Will -cont to monitor and follow through dialysis team. PING CHECKER * Telephone Encounter - Jenna Mireles RN - 09/19/2018 3:06 PM WRAPPING CHECKER Luz Elena called to discuss the patients care post transplant. She wanted to know who was following this patient on her tacro and cellcept medications. I informed her that it looks as if we are no longer following but I would transfer her to the post coordinator that was in her care last to be sure. We also discussed her pre transplant status and she believes the patient has gotten her medical insurance worked out so she can start completing a lot of her testing. I will follow up with the patient in regards to completing testing so we can move forward with her evaluation. Call routed to Vannesa for answers regarding post care questions. PING CHECKER in this encounter Plan of Treatment Not on fileas of this encounter Visit Diagnoses Not on filein this encounter
--- OUTSIDE RECORDS SUMMARY | 2018-10-07 19:17 | XMS REPORT | Clinical Summary ---
Author Author [facility] Organization [facility] Address Unknown Phone Unavailable Care Team Providers Care Criminal Defense Attorney Name Role Phone Brent Jarvis MD Unavailable [...] Unavailable Meagan Santos Unavailable Unavailable Alicia Manrique MICA WASHER GLUER Unavailable Source Comments Some departments are not documenting in the electronic medical record. If you do not see the information that you expected, contact Release of Information in the Health Information Management department at [phone] for further assistance in locating additional records.[facility] Allergies Comments Active Allergy Reactions Severity Noted Date Morphine AGITATION Low 10/16/2015 Sulfa (Sulfonamide RASH High 01/10/2006 Antibiotics) Vancomycin RASH 01/09/2007 Medications End Date Status Medication Sig Dispensed Refills Start Date Active albuterol (PROAIR HFA) 90 Inhale 2 0 mcg/Actuation inhaler Puffs by mouth Every 6 Hours as needed for Wheezing. Active tacrolimus XL (ASTAGRAF Take 5 180 capsule 11 XL) 1 mg capsules by 7 capsuleIndications: mouth daily. Kidney replaced by transplant, Encounter for long-term (current) use of high-risk medication Active carvedilol (COREG) 25 mg Take 25 mg by 0 tablet mouth twice daily with meals. Take with food. Active mycophenolate mofetil Take 500 mg 0 (CELLCEPT) 500 mg tablet by mouth twice daily. Take on an empty stomach. Active ferrous gluconate 324 mg Take 1 tablet 30 tablet 5 (36 mg iron) by mouth 8 tabIndications: anemia daily. from inadequate iron Active venlafaxine XR (EFFEXOR Take 150 mg 0 XR) 150 mg capsule by mouth daily. Take with food. Active tiotropium (SPIRIVA WITH Place 18 mcg 0 HANDIHALER) 18 mcg into inhaler capsule for inhaler and inhale into lungs as directed daily. Active calcitriol (ROCALTROL) Take 0.25 mcg 0 0.25 mcg capsule by mouth daily. Active lisinopril (PRINIVIL, Take 40 mg by 0 ZESTRIL) 40 mg tablet mouth daily. Active amLODIPine (NORVASC) 5 mg Take 5 mg by 0 tablet mouth daily. Active spironolactone Take 100 mg 0 (ALDACTONE) 100 mg tablet by mouth daily. Take with food. Active Problems Problem Noted Date UTI (urinary tract infection) 06/11/2017 ANNETTE (acute kidney injury) 06/11/2017 Immunosuppression 04/14/2016 Proteinuria 04/14/2016 Mixed hyperlipidemia 04/14/2016 Chronic congestion of paranasal sinus 04/14/2016 Chronic bronchitis 04/14/2016 Chronic rejection of kidney transplant 07/03/2015 Kidney replaced by transplant 07/03/2015 Encounters Care Team Description Date Type Specialty Jenna Mireles RN Kidney Evaluation 09/19/2018 Telephone Transplant Surgery Jenna Mireles, KEITH Kidney Evaluation 08/30/2018 Telephone Transplant Surgery Jenna Mireles RN Kidney Evaluation 08/16/2018 Telephone Transplant Surgery Marcela Shell Financial/Insurance Questions (INSURANCE) 08/01/2018 Telephone Transplant Surgery Jenna Mireles RN Kidney Evaluation 07/21/2018 Telephone Transplant Surgery Jenna Mireles RN Kidney Evaluation 07/20/2018 Telephone Transplant Surgery Mikala Mcmullen Other 07/20/2018 Telephone Transplant Surgery Jenna Mireles RN Kidney Evaluation 07/12/2018 Telephone Transplant Surgery Jenna Mireles RN Kidney Evaluation 07/10/2018 Telephone Transplant Surgery from Last 3 Months Social History Date Tobacco Use Types Packs/Day [...] Travel Start No recent travel history available. Last Filed Vital Signs Time Taken Vital Sign Reading 01/16/2018 12:18 PM CDT Blood Pressure 152/89 01/16/2018 12:18 PM CDT Pulse 74 01/16/2018 12:15 PM CDT Temperature 36.7 C (98.1 F) 10/06/2016 8:39 AM INFORMATION SYSTEMS ARCHITECT Respiratory Rate 16 01/16/2018 12:15 PM CDT Oxygen Saturation 96% - Inhaled Oxygen - Concentration 01/16/2018 12:15 PM CDT Weight 73.8 kg (162 lb 11.2 oz) 01/16/2018 12:15 PM CDT Height 165.1 cm (5' 5") 01/16/2018 12:15 PM CDT Body Mass Index 27.07 Plan of Treatment Health Maintenance Due Date Last Done Comments PHYSICAL (COMPREHENSIVE) 1973 EXAM DILATED EYE EXAM 01/18/1984 DTAP/TDAP VACCINES (1 - 01/18/1984 Tdap) FOOT EXAM 01/18/1984 PNEUMONIA VACCINE (DM) 01/18/1984 CERVICAL CANCER SCREENING 01/18/1996 BREAST CANCER SCREENING 2006 COLORECTAL CANCER 01/18/2016 SCREENING SHINGLES RECOMBINANT 01/18/2016 VACCINE (1 of 2) INFLUENZA VACCINE 04/05/2018 HBA1C 07/19/2018 01/16/2018, 10/13/2017, 09/12/2012 HIV SCREENING Completed 01/16/2018 Results Not on filefrom Last 3 Months Insurance Payer Benefit Subscriber ID Type Phone Address Plan / Group BCBS [employer] xxxxxxxxxxxx PPO OUT OF STATE Advance Directives Patient has advance care planning documents, and code status on file. For more information, please contact: [facility] [address] [place] [address] Date Inactivated Comments Code Status Date Activated 06/12/2017 6:40 PM Full Code 06/11/2017 5:42 AM Provider has discussed Code Status No, more discussion w/Patient or Family? needed 10/14/2009 4:49 PM Full Code 10/11/2009 11:30 PM 01/09/2009 8:43 PM Full Code 01/07/2009 1:22 AM
--- OUTSIDE RECORDS SUMMARY | 2018-10-07 19:17 | XMS REPORT | Encounter Summary ---
Author Author [facility] Organization [facility] Address Unknown Phone Unavailable Care Team Providers Care Biodiesel Plant Operations Engineer Name Role Phone Brent Jarvis MD Unavailable [...] Unavailable Meagan Santos Unavailable Unavailable Alicia Manrique VELVET WEAVER Unavailable Reason for Visit * Reason Comments Financial/Insurance INSURANCE Questions Encounter Details Care Team Description Date Type Department Marcela Shell Financial/Insurance Questions (INSURANCE) 08/01/2018 Telephone [facility] 1st FLO[address] [place] [address] Social History Date Tobacco Use Types Packs/Day [...] * Telephone Encounter - Marcela Shell - 08/01/2018 11:31 AM TELEGRAPHIC TYPEWRITER MECHANIC INSURANCE Left a message with my contact information and a brief message asking her to give me a call regarding her Insurance since the one that we have in our system is no longer active. Pending Patient call. MM 08/01/18 GRAPHIC TYPEWRITER MECHANIC in this encounter Plan of Treatment Not on fileas of this encounter Visit Diagnoses Not on filein this encounter
--- OUTSIDE RECORDS SUMMARY | 2018-10-07 19:17 | XMS REPORT | Encounter Summary ---
Author Author [facility] Organization [facility] Address Unknown Phone Unavailable Care Team Providers Care Field Sales Manager Name Role Phone Brent Jarvis MD Unavailable [...] Unavailable Meagan Santos Unavailable Unavailable Alicia Manrique CNC MILLING MACHINIST Unavailable Reason for Visit * Reason Comments Kidney Evaluation Encounter Details Care Team Description Date Type Department Jenna Mireles RN Kidney Evaluation 08/30/2018 Telephone [facility] 1st [address]LO[address] [place] [address] Social History Date Tobacco Use Types Packs/Day [...] Telephone Encounter - Jenna Mireles RN - 08/30/2018 10:51 AM MAGAZINE WRITER Left voicemail ZINE WRITER in this encounter Plan of Treatment Not on fileas of this encounter Visit Diagnoses Not on filein this encounter
--- OUTSIDE RECORDS SUMMARY | 2018-10-07 19:17 | XMS REPORT | Encounter Summary ---
Author Author [facility] Organization [facility] Address Unknown Phone Unavailable Care Team Providers Care Air Traffic Coordinator Name Role Phone Brent Jarvis MD [...] Unavailable Meagan Santos Unavailable Unavailable Alicia Manrique CUSTOMER SUCCESS REPRESENTATIVE Unavailable Reason for Visit * Reason Comments Kidney Evaluation Encounter Details Care Team Description Date Type Department Jenna Mireles RN Kidney Evaluation 08/16/2018 Telephone [facility] 1st [address]LO[address] [place] [address] Social History Date Tobacco Use Types Packs/Day [...] Telephone Encounter - Jenna Mireles RN - 08/16/2018 1:39 PM FIBERGLASS MACHINE OPERATOR Called and left a message for Ju to see what her progress is with the transplant evaluation. Left contact information to return my call. RGLASS MACHINE OPERATOR in this encounter Plan of Treatment Not on fileas of this encounter Visit Diagnoses Not on filein this encounter
--- OUTSIDE RECORDS SUMMARY | 2018-10-07 19:17 | XMS REPORT | Encounter Summary ---
Author Author [facility] Organization [facility] Address Unknown Phone Unavailable Care Team Providers Care Aircraft Pilot Name Role Phone Brent Jarvis MD Unavailable [...] Unavailable Meagan Santos Unavailable Unavailable Alicia Manrique SYSTEM SUPPORT SPECIALIST Unavailable Reason for Visit * Reason Comments Kidney Evaluation Encounter Details Care Team Description Date Type Department Jenna Mireles RN Kidney Evaluation 07/21/2018 Telephone [facility] [address]st [address]LO[address] [place] [address] Social History Date Tobacco Use Types Packs/Day [...] Telephone Encounter - Jenna Mireles RN - 07/21/2018 10:01 AM COMMERCIAL LEASE ADMINISTRATOR Returned Ju's voicemail. I left another message to call me back and let me know if she has completed any of the follow such as echo that was sent to may, mammo, colonoscopy and dental clearance through her PCP. ERCIAL LEASE ADMINISTRATOR in this encounter Plan of Treatment Not on fileas of this encounter Visit Diagnoses Not on filein this encounter
--- OUTSIDE RECORDS SUMMARY | 2018-10-07 19:17 | XMS REPORT | Encounter Summary ---
Author Author [facility] Organization [facility] Address Unknown Phone Unavailable Care Team Providers Care Electrician Manager Name Role Phone Brent Jarvis MD Unavailable Jessica Portillo RN Unavailable Unavailable Luz Elena Mireles RN Unavailable Unavailable Yolie Chaves MD Unavailable Phu Luevano MD Unavailable Unavailable Monet Samayoa Unavailable Unavailable Lorene Wheat RN Unavailable Unavailable Eilgio Antonio MD PCP Layne Lynn MD Unavailable [...] Unavailable Meagan Santos Unavailable Unavailable Alicia Manrique DROP WIRE STRINGER Unavailable Reason for Visit * Reason Comments Kidney Evaluation Encounter Details Care Team Description Date Type Department Jenna Mireles RN Kidney Evaluation 07/12/2018 Telephone [facility] 1st FLO[address] [place] [address] Social History Date Tobacco Use Types Packs/Day [...] Telephone Encounter - Jenna Mireles RN - 07/12/2018 9:16 AM SHEET METAL ASSEMBLER Called and left message to see about progress on testing. T METAL ASSEMBLER in this encounter Plan of Treatment Not on fileas of this encounter Visit Diagnoses Not on filein this encounter
--- OUTSIDE RECORDS SUMMARY | 2018-10-07 19:18 | XMS REPORT | Continuity of Care Document ---
Author Author [facility] Organization [facility] Address Unknown Phone Unavailable Allergies Active Description Code Type Severity Reaction Onset Reported/Identified Relationship to Patient Clinical Status Yes [id number] (SULFA (SULFONAMIDE ANTIBIOTICS)) [id number] (SULFA (SULFONAMIDE ANTIBIOTICS)) Mild N/A 10/10/2009 Yes Gentamicin [id number] Drug Allergy Mild N/A 02/10/2018 Yes morphine [id number] Drug Allergy Mild N/A 02/10/2018 Yes amoxicillin [id number] Drug Allergy Unknown N/A 03/25/2018 Yes clavulanic acid [id number] Drug Allergy Unknown N/A 03/25/2018 Medications There is no data. Problems Date [...] Ot W23.0XXA CAUGHT, CRUSH, JAMMED, OR PINCHED GERRI M 02/13/2018 CHRISSIE MATTHEWS APRN Ot Z88.1 ALLERGY STATUS TO OTHER ANTIBIOTIC AGENT 02/13/2018 CHRISSIE MATTHEWS SENIOR COLDFUSION DEVELOPER Ot Z88.5 ALLERGY STATUS TO NARCOTIC AGENT STATUS 03/25/2018 NELLIE MEDRANO TAMMY Ot N28.9 DISORDER OF KIDNEY AND URETER, UNSPECIFI 03/25/2018 TAMMY BALLARD MD Ot Z94.0 KIDNEY TRANSPLANT STATUS 03/25/2018 JEREMIAS OTT MD Ot J45.909 UNSPECIFIED ASTHMA, UNCOMPLICATED 03/25/2018 JEREMIAS OTT MD Ot K52.9 NONINFECTIVE GASTROENTERITIS AND COLITIS 03/25/2018 JEREMIAS OTT MD Ot R10.33 PERIUMBILICAL PAIN 03/25/2018 JEREMIAS OTT MD Ot Z85.828 PERSONAL HISTORY OF OTHER MALIGNANT NEOP 03/25/2018 JEREMIAS OTT MD Ot Z88.1 ALLERGY STATUS TO OTHER ANTIBIOTIC AGENT 03/25/2018 JEREMIAS OTT MD Ot Z88.5 ALLERGY STATUS TO NARCOTIC AGENT STATUS 03/25/2018 JEREMIAS OTT MD Ot Z90.710 ACQUIRED ABSENCE OF BOTH CERVIX AND UTER 03/25/2018 JEREMIAS OTT MD Ot Z94.0 KIDNEY TRANSPLANT STATUS 03/25/2018 JEREMIAS OTT MD Ot Z99.2 DEPENDENCE ON RENAL DIALYSIS 03/27/2018 JEREMIAS OTT MD Ot J45.909 UNSPECIFIED ASTHMA, UNCOMPLICATED 03/27/2018 JEREMIAS OTT MD Ot K52.9 NONINFECTIVE GASTROENTERITIS AND COLITIS 03/27/2018 JEREMIAS OTT MD Ot R10.33 PERIUMBILICAL PAIN 03/27/2018 JEREMIAS OTT MD Ot Z85.828 PERSONAL HISTORY OF OTHER MALIGNANT NEOP 03/27/2018 JEREMIAS OTT MD Ot Z88.1 ALLERGY STATUS TO OTHER ANTIBIOTIC AGENT 03/27/2018 JEREMIAS OTT MD Ot Z88.5 ALLERGY STATUS TO NARCOTIC AGENT STATUS 03/27/2018 JEREMIAS OTT MD Ot Z90.710 ACQUIRED ABSENCE OF BOTH CERVIX AND UTER 03/27/2018 JEREMIAS OTT MD Ot Z94.0 KIDNEY TRANSPLANT STATUS 03/27/2018 JEREMIAS OTT MD Ot Z99.2 DEPENDENCE ON RENAL DIALYSIS 06/03/2018 CHRISSIE MATTHEWS APRN Ot S61.210A LACERATION W/O FB OF R IDX FNGR W/O TATIANNA 06/03/2018 CHRISSIE MATTHEWS APRN Ot W18.09XA STRIKING AGAINST OTH OBJECT W SUBSEQUENT 06/03/2018 CHRISSIE MATTHEWS APRN Ot W23.0XXA CAUGHT, CRUSH, JAMMED, OR PINCHED BETW M 06/03/2018 CHRISSIE MATTHEWS APRN Ot Z88.1 ALLERGY STATUS TO OTHER ANTIBIOTIC AGENT 06/03/2018 CHRISSIE MATTHEWS APRN Ot Z88.5 ALLERGY STATUS TO NARCOTIC AGENT STATUS 06/16/2018 CHRISSIE MATTHEWS APRN Ot D64.9 ANEMIA, UNSPECIFIED 06/16/2018 CHRISSIE MATTHEWS APRN Ot E87.70 FLUID OVERLOAD, UNSPECIFIED 06/16/2018 CHRISSIE MATTHEWS APRN Ot F17.210 NICOTINE DEPENDENCE, CIGARETTES, UNCOMPL 06/16/2018 CHRISSIE MATTHEWS APRN Ot J44.9 CHRONIC OBSTRUCTIVE PULMONARY DISEASE, U 06/16/2018 CHRISSIE MATTHEWS APRN Ot N18.6 END STAGE RENAL DISEASE 06/16/2018 CHRISSIE MATTHEWS APRN Ot R06.02 SHORTNESS OF BREATH 06/16/2018 CHRISSIE MATTHEWS APRN Ot Z85.828 PERSONAL HISTORY OF OTHER MALIGNANT NEOP 06/16/2018 CHRISSIE MATTHEWS APRN Ot Z88.0 ALLERGY STATUS TO PENICILLIN 06/16/2018 CHRISSIE MATTHEWS APRN Ot Z88.1 ALLERGY STATUS TO OTHER ANTIBIOTIC AGENT 06/16/2018 CHRISSIE MATTHEWS APRN Ot Z88.5 ALLERGY STATUS TO NARCOTIC AGENT STATUS 06/16/2018 CHRISSIE MATTHEWS APRN Ot Z88.8 ALLERGY STATUS TO OTH DRUG/MEDS/BIOL SUB 06/16/2018 CHRISSIE MATTHEWS APRN Ot Z90.710 ACQUIRED ABSENCE OF BOTH CERVIX AND UTER 06/16/2018 CHRISSIE MATTHEWS APRN Ot Z99.2 DEPENDENCE ON RENAL DIALYSIS 06/19/2018 CHRISSIE MATTHEWS APRN Ot D64.9 ANEMIA, UNSPECIFIED 06/19/2018 CHRISSIE MATTHEWS APRN Ot E87.70 FLUID OVERLOAD, UNSPECIFIED 06/19/2018 CHRISSIE MATTHEWS APRN Ot F17.210 NICOTINE DEPENDENCE, CIGARETTES, UNCOMPL 06/19/2018 CHRISSIE MATTHEWS APRN Ot J44.9 CHRONIC OBSTRUCTIVE PULMONARY DISEASE, U 06/19/2018 CHRISSIE MATTHEWS APRN Ot N18.6 END STAGE RENAL DISEASE 06/19/2018 CHRISSIE MATTHEWS APRN Ot R06.02 SHORTNESS OF BREATH 06/19/2018 CHRISSIE MATTHEWS APRN Ot Z85.828 PERSONAL HISTORY OF OTHER MALIGNANT NEOP 06/19/2018 CHRISSIE MATTHEWS APRN Ot Z88.0 ALLERGY STATUS TO PENICILLIN 06/19/2018 CHRISSIE MATTHEWS APRN Ot Z88.1 ALLERGY STATUS TO OTHER ANTIBIOTIC AGENT 06/19/2018 CHRISSIE MATTHEWS APRN Ot Z88.5 ALLERGY STATUS TO NARCOTIC AGENT STATUS 06/19/2018 CHRISSIE MATTHEWS APRN Ot Z88.8 ALLERGY STATUS TO OTH DRUG/MEDS/BIOL SUB 06/19/2018 CHRISSIE MATTHEWS APRN Ot Z90.710 ACQUIRED ABSENCE OF BOTH CERVIX AND UTER 06/19/2018 CHRISSIE MATTHEWS APRN Ot Z99.2 DEPENDENCE ON RENAL DIALYSIS 10/04/2018 JONNYIMTIAZ Mehta DOA K Ot 717.7 CHONDROMALACIA PATELLAE 10/04/2018 IMTIAZ FULLER DOA K Ot 719.06 JOINT EFFUSION-L/LEG 10/04/2018 IMTIAZ FULLER DOA K Ot 719.46 JOINT PAIN-L/LEG 10/04/2018 NELLIE MEDRANO, TAMMY Ot N28.9 DISORDER OF KIDNEY AND URETER, UNSPECIFI 10/04/2018 NELLIE MEDRANO, TAMMY Ot Z94.0 KIDNEY TRANSPLANT STATUS Procedures There is no data. Results Test Result Range Holter Montor 24 Hour - 02/28/17 11:11 Holter Monitor 24 Hour Complete Complete blood count (CBC) with automated white blood cell (WBC) differential - 03/25/18 10:20 Blood leukocytes automated count (number/volume) 13.8 10*3/uL 4.3-11.0 Blood erythrocytes automated count (number/volume) 3.03 10*6/uL 4.35-5.85 Venous blood hemoglobin measurement (mass/volume) 9.5 g/dL 11.5-16.0 Blood hematocrit (volume fraction) 29 % 35-52 Automated erythrocyte mean corpuscular volume 95 [foz_us] 80-99 Automated erythrocyte mean corpuscular hemoglobin (mass per erythrocyte) 31 pg 25-34 Automated erythrocyte mean corpuscular hemoglobin concentration measurement ( mass/volume) 33 g/dL 32-36 Automated erythrocyte distribution width ratio 16.8 % 10.0-14.5 Automated blood platelet count (count/volume) 105 10*3/uL 130-400 Automated blood platelet mean volume measurement 12.0 [foz_us] 7.4-10.4 Automated blood neutrophils/100 leukocytes 77 % 42-75 Automated blood lymphocytes/100 leukocytes 8 % 12-44 Blood monocytes/100 leukocytes 6 % 0-12 Automated blood eosinophils/100 leukocytes 8 % 0-10 Automated blood basophils/100 leukocytes 0 % 0-10 Blood neutrophils automated count (number/volume) 10.7 10*3 1.8-7.8 Blood lymphocytes automated count (number/volume) 1.2 10*3 1.0-4.0 Blood monocytes automated count (number/volume) 0.9 10*3 0.0-1.0 Automated eosinophil count 1.1 10*3/uL 0.0-0.3 Automated blood basophil count (count/volume) 0.0 10*3/uL 0.0-0.1 Comprehensive metabolic panel - 03/25/18 10:20 Serum or plasma sodium measurement (moles/volume) 139 mmol/L 135-145 Serum or plasma potassium measurement (moles/volume) 5.6 mmol/L 3.6-5.0 Serum or plasma chloride measurement (moles/volume) 99 mmol/L 98-107 Carbon dioxide 21 mmol/L 21-32 Serum or plasma anion gap determination (moles/volume) 19 mmol/L 5-14 Serum or plasma urea nitrogen measurement (mass/volume) 70 mg/dL 7-18 Serum or plasma creatinine measurement (mass/volume) 16.10 mg/dL 0.60-1.30 Serum or plasma urea nitrogen/creatinine mass ratio 4 NRG Serum or plasma creatinine measurement with calculation of estimated glomerular filtration rate 2 NRG Serum or plasma glucose measurement (mass/volume) 82 mg/dL 70-105 Serum or plasma calcium measurement (mass/volume) 9.7 mg/dL 8.5-10.1 Serum or plasma total bilirubin measurement (mass/volume) 0.5 mg/dL 0.1-1.0 Serum or plasma alkaline phosphatase measurement (enzymatic activity/volume) 57 U/L 40-136 Serum or plasma aspartate aminotransferase measurement (enzymatic activity/ volume) 15 U/L 5-34 Serum or plasma alanine aminotransferase measurement (enzymatic activity/volume ) 6 U/L 0-55 Serum or plasma protein measurement (mass/volume) 6.5 g/dL 6.4-8.2 Serum or plasma albumin measurement (mass/volume) 3.4 g/dL 3.2-4.5 Lipase - 03/25/18 10:20 Lipase 71 U/L 8-78 Complete urinalysis with reflex to culture - 03/25/18 11:45 Urine color determination YELLOW NRG Urine clarity determination MUCOUS NRG Urine pH measurement by test strip 8 5-9 Specific gravity of urine by test strip 1.015 1.016- 1.022 Urine protein assay by test strip, semi-quantitative 4+ NEGATIVE Urine glucose detection by automated test strip 1+ NEGATIVE Erythrocytes detection in urine sediment by light microscopy 1+ NEGATIVE Urine ketones detection by automated test strip NEGATIVE NEGATIVE Urine nitrite detection by test strip NEGATIVE NEGATIVE Urine total bilirubin detection by test strip NEGATIVE NEGATIVE Urine urobilinogen measurement by automated test strip (mass/volume) NORMAL NORMAL Urine leukocyte esterase detection by dipstick NEGATIVE NEGATIVE Automated urine sediment erythrocyte count by microscopy (number/high power field) [HPF] NRG Automated urine sediment leukocyte count by microscopy (number/high power field ) 0 [HPF] NRG Bacteria detection in urine sediment by light microscopy TRACE NRG Crystals detection in urine sediment by light microscopy NONE NRG Casts detection in urine sediment by light microscopy NONE NRG Mucus detection in urine sediment by light microscopy NEGATIVE NRG Complete urinalysis with reflex to culture NO NRG Bacterial urine culture - 03/25/18 11:45 Bacterial urine culture NG NRG Complete blood count (CBC) with automated white blood cell (WBC) differential - 06/16/18 15:47 Blood leukocytes automated count (number/volume) 8.6 10*3/uL 4.3-11.0 Blood erythrocytes automated count (number/volume) 2.00 10*6/uL 4.35-5.85 Venous blood hemoglobin measurement (mass/volume) 6.3 g/dL 11.5-16.0 Blood hematocrit (volume fraction) 19 % 35-52 Automated erythrocyte mean corpuscular volume 97 [foz_us] 80-99 Automated erythrocyte mean corpuscular hemoglobin (mass per erythrocyte) 32 pg 25-34 Automated erythrocyte mean corpuscular hemoglobin concentration measurement ( mass/volume) 33 g/dL 32-36 Automated erythrocyte distribution width ratio 15.1 % 10.0-14.5 Automated blood platelet count (count/volume) 158 10*3/uL 130-400 Automated blood platelet mean volume measurement 10.5 [foz_us] 7.4-10.4 Automated blood neutrophils/100 leukocytes 71 % 42-75 Automated blood lymphocytes/100 leukocytes 11 % 12-44 Blood monocytes/100 leukocytes 5 % 0-12 Automated blood eosinophils/100 leukocytes 12 % 0-10 Automated blood basophils/100 leukocytes 1 % 0-10 Blood neutrophils automated count (number/volume) 6.2 10*3 1.8-7.8 Blood lymphocytes automated count (number/volume) 1.0 10*3 1.0-4.0 Blood monocytes automated count (number/volume) 0.4 10*3 0.0-1.0 Automated eosinophil count 1.1 10*3/uL 0.0-0.3 Automated blood basophil count (count/volume) 0.0 10*3/uL 0.0-0.1 PT panel in platelet poor plasma by coagulation assay - 06/16/18 15:47 Prothrombin time (PT) in platelet poor plasma by coagulation assay 15.0 s 12.2-14.7 INR in platelet poor plasma or blood by coagulation assay 1.2 0.8-1.4 Activated partial thromboplastin time (aPTT) in platelet poor plasma bycoagulation assay - 06/16/18 15:47 Activated partial thromboplastin time (aPTT) in platelet poor plasma bycoagulation assay 28 s 24-35 Comprehensive metabolic panel - 06/16/18 15:47 Serum or plasma sodium measurement (moles/volume) 138 mmol/L 135-145 Serum or plasma potassium measurement (moles/volume) 3.9 mmol/L 3.6-5.0 Serum or plasma chloride measurement (moles/volume) 99 mmol/L 98-107 Carbon dioxide 24 mmol/L 21-32 Serum or plasma anion gap determination (moles/volume) 15 mmol/L 5-14 Serum or plasma urea nitrogen measurement (mass/volume) 53 mg/dL 7-18 Serum or plasma creatinine measurement (mass/volume) 13.05 mg/dL 0.60-1.30 Serum or plasma urea nitrogen/creatinine mass ratio 4 NRG Serum or plasma creatinine measurement with calculation of estimated glomerular filtration rate 3 NRG Serum or plasma glucose measurement (mass/volume) 117 mg/dL 70-105 Serum or plasma calcium measurement (mass/volume) 9.2 mg/dL 8.5-10.1 Serum or plasma total bilirubin measurement (mass/volume) 0.4 mg/dL 0.1-1.0 Serum or plasma alkaline phosphatase measurement (enzymatic activity/volume) 68 U/L 40-136 Serum or plasma aspartate aminotransferase measurement (enzymatic activity/ volume) 14 U/L 5-34 Serum or plasma alanine aminotransferase measurement (enzymatic activity/volume ) 14 U/L 0-55 Serum or plasma protein measurement (mass/volume) 5.8 g/dL 6.4-8.2 Serum or plasma albumin measurement (mass/volume) 2.8 g/dL 3.2-4.5 CALCIUM CORRECTED 10.2 mg/dL 8.5-10.1 Magnesium - 06/16/18 15:47 Magnesium 2.1 mg/dL 1.8-2.4 Serum or plasma troponin i.cardiac measurement (mass/volume) - 06/16/18 15:47 Serum or plasma troponin i.cardiac measurement (mass/volume) 0.60 ng /mL <0.30 Myoglobin, serum - 06/16/18 15:47 Myoglobin, serum 201.3 ng/mL 10.0-92.0 Lipase - 06/16/18 15:47 Lipase 88 U/L 8-78 Serum or plasma lithium measurement (moles/volume) - 06/16/18 15:47 BNP level 4080.5 pg/mL <100.0 Blood manual differential performed detection - 06/16/18 15:47 Blood monocytes/100 leukocytes 5 % NRG Manual blood segmented neutrophils/100 leukocytes 68 % NRG Manual blood lymphocytes/100 leukocytes 14 % NRG Manual eosinophils/100 leukocytes in nose 13 % NRG Blood hypochromia detection by light microscopy MODERATE NRG Blood everardo cells detection by light microscopy SLIGHT NRG RED CELLS LEUKO REDUCED AS1 - 06/16/18 16:20 RED CELLS LEUKO REDUCED AS1 NOT AVAILABLE NRG Blood type T Indirect antibody screen panel - 06/16/18 16:20 ABO+Rh group AP NRG Transfusion band number [id number] NRG Blood group antibody screen NEGATIVE NRG Bacterial blood culture - 06/16/18 17:07 Bacterial blood culture NG NRG Bacterial blood culture - 06/16/18 17:36 Bacterial blood culture NG NRG Encounters ACCT No. Visit Date/Time Discharge Status Pt. Type Provider Facility Loc./Unit Complaint [id number] 12/12/2014 09:52:55 12/12/2014 23:59:59 CLS Outpatient RENEE GONZALEZ [id number] 06/16/2018 15:39:00 06/16/2018 17:59:00 DIS Emergency CHRISSIE MATTHEWS APRN [facility] ER CHEST PAIN [id number] 03/25/2018 09:31:00 03/25/2018 14:37:00 DIS Emergency JEREMIAS OTT MD [facility] ER ABD PAIN, ON DIALYSIS [id number] 02/10/2018 14:15:00 02/10/2018 15:53:00 DIS Emergency CHRISSIE MATTHEWS APRN [facility] ER RT INDEX FINGER LACERATION [id number] 11/13/2015 00:08:00 11/13/2015 23:59:59 CLS Preadmit TAMMY BALLARD MD [facility] LAB TRANSPLANT-KIDNEY [id number] 08/14/2015 10:30:00 11/12/2015 00:01:00 DIS Outpatient TAMMY BALLARD MD [facility] LAB TRANSPLANT-KIDNEY [id number] 06/15/2013 11:59:00 06/15/2013 23:59:59 CLS Outpatient WILLIE FULLER DO [facility] RAD RT KNEE PAIN AND SWELLING [id number] 06/10/2013 05:31:00 06/10/2013 08:00:00 DIS Emergency WILLIE FULLER DO [facility] ER LEG PAIN [id number] 02/28/2017 10:54:00 02/28/2017 23:59:00 DIS Outpatient Eligio Antonio
[2018-10-07] MEDS ORDERED: ONDANSETRON 4 MG/2 ML (SDV) Z0FRAN IVP ONE (19:30)
[2018-10-07] MEDS ORDERED: RT-ALBUTEROL/IPRATROPIUM 3 ML (DUONEB) VIAL INH ONE ×2 (19:30→22:30)
[2018-10-07] MEDS ORDERED: KETOROLAC 15 MG/ML VIAL IVP PRN (19:30)
[2018-10-07] MEDS ORDERED: methylPREDNISolone 125 MG (Solu-MEDROL) VIAL IVP ONE (19:30)
[2018-10-07] MEDS ORDERED: KETOROLAC 30 MG/ML VIAL IVP ONE (19:30)
[2018-10-07 19:36] LABS: BASOPHILS % (AUTO) 0 % (0-10); EOSINOPHILS # (AUTO) 0.7 10^3/uL (0.0-0.3); EOSINOPHILS % (AUTO) 6 % (0-10); HEMATOCRIT 34 % (35-52); HEMOGLOBIN 11.3 G/DL (11.5-16.0); LYMPHOCYTES # (AUTO) 1.2 X 10^3 (1.0-4.0); LYMPHOCYTES % (AUTO) 10 % (12-44); MEAN CORPUSCULAR HEMOGLOBIN 32 PG (25-34); MEAN CORPUSCULAR HGB CONC 33 G/DL (32-36); MEAN CORPUSCULAR VOLUME 98 FL (80-99); MEAN PLATELET VOLUME 10.2 FL (7.4-10.4); MONOCYTES # (AUTO) 0.8 X 10^3 (0.0-1.0); MONOCYTES % (AUTO) 7 % (0-12); NEUTROPHILS % (AUTO) 76 % (42-75); PLATELET COUNT 263 10^3/uL (130-400); WHITE BLOOD COUNT 11.8 10^3/uL (4.3-11.0)
--- NOTE | 2018-10-07 19:36 | ED Cough/URI ---
General Stated Complaint: R EAR PAIN/DIZZINESS/NAUSEA Source: patient Exam Limitations: no limitations History of Present Illness Date Seen by Provider: Oct 07, 2018 Time Seen by Provider: 19:34 Initial Comments 53-year-old female with reports of right ear pain that began yesterday. The pain is sharp. She's also had nausea and dizziness that began today. She does have COPD, does not wear oxygen at home, has had a cough and some shortness of breath. She also does peritoneal dialysis at home nightly. On arrival to the emergency room her oxygen saturation is 85% on room air. She follows with nephrology at [facility] in [place]. Timing/Duration: constant Severity/Quality: productive cough Modifying Factors: Worse With Activity Associated Symptoms: cough, shortness of breath, wheezing Allergies and Home Medications Allergies Coded Allergies: gentamicin (Verified Allergy, Mild, 02/10/18) morphine (Verified Allergy, Mild, 02/10/18) amoxicillin (Verified Allergy, Unknown, 03/25/18) clavulanic acid (Verified Allergy, Unknown, 03/25/18) Uncoded Allergies: [id number] (SULFA (SULFONAMIDE ANTIBIOTICS)) (Allergy, Mild, 10/10/09) Home Medications Hydrocodone Bit/Acetaminophen 1 Tab Tablet, 1-2 TAB PO Q6H FOR PAIN Prescribed by: WILLIE FULLER on 06/10/13 0720 Hydrocodone/Acetaminophen 1 Each Tablet, 1 EACH PO 4 TIMES A DAY Prescribed by: JEREMIAS OTT on 03/25/18 1421 Mycophenolate Mofetil 500 Mg Tablet, 500 MG PO BID, (Reported) Tacrolimus Anhydrous 1 Mg Capsule, 2 MG PO BID, (Reported) Tramadol Hcl 50 Mg Tab, 50 MG PO Q4-6HOURS PRN FOR PAIN Prescribed by: WILLIE FULLER on 06/10/13 0720 Venlafaxine Hcl 75 Mg Tablet, 75 MG PO BID, (Reported) Patient Home Medication List Home Medication List Reviewed: Yes Review of Systems Review of Systems Constitutional: see HPI; No chills, No fever EENTM: ear pain Respiratory: see HPI, cough, short of breath, wheezing Cardiovascular: see HPI; No chest pain Genitourinary: no symptoms reported Musculoskeletal: no symptoms reported Skin: no symptoms reported Psychiatric/Neurological: No Symptoms Reported Hematologic/Lymphatic: No Symptoms Reported Past Ogudvrl-Gmahca-Ujsrwp Hx Patient Social History 2nd Hand Smoke Exposure: No Recent Foreign Travel: No Contact w/Someone Who Travel: No Immunizations Up To Date Tetanus Booster (TDap): Unknown Past Medical History Surgeries: Yes Respiratory: Yes Asthma Cardiac: No Neurological: No 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 oz. 77.753828ew; 33.28 BMI Method:Stated General Appearance: WD/WN, no apparent distress, other (85% on room air. Oxygen increased to 94% on 2 L.) Eyes: Bilateral Eye Normal Inspection, Bilateral Eye PERRL, Bilateral Eye EOMI HEENT: PERRL/EOMI, normal ENT inspection, TMs normal; No TM abnormal (R), No TM abnormal (L) Respiratory: normal breath sounds, no respiratory distress, no accessory muscle use, other (she has a peritoneal dialysis catheter entering the right lower abdomen. The skin surrounding this is without erythema or drainage.) Cardiovascular: regular rate, rhythm, no murmur Gastrointestinal: normal bowel sounds, non tender, soft Extremities: normal range of motion, non-tender Neurologic/Psychiatric: alert, normal mood/affect, oriented x 3 Skin: normal color, warm/dry Procedures/Interventions Suture Size: 5-0 Progress/Results/Core Measures Suspected Sepsis SIRS Temperature: Pulse: Respiratory Rate: Laboratory Tests 10/07/18 19:30: White Blood Count 11.8H Blood Pressure / Mean: Laboratory Tests 10/07/18 19:30: Creatinine 16.23H, Platelet Count 263 Results/Orders Lab Results Laboratory Tests Test 10/07/18 19:30 10/07/18 20:50 Range/Units White Blood Count 11.8 H 4.3-11.0 10^3/uL Red Blood Count 3.50 L 4.35-5.85 10^6/uL Hemoglobin 11.3 L 11.5-16.0 G/DL Hematocrit 34 L 35-52 % Mean Corpuscular Volume 98 80-99 FL Mean Corpuscular Hemoglobin 32 25-34 PG Mean Corpuscular Hemoglobin Concent 33 32-36 G/DL Red Cell Distribution Width 14.0 10.0-14.5 % Platelet Count 263 130-400 10^3/uL Mean Platelet Volume 10.2 7.4-10.4 FL Neutrophils (%) (Auto) 76 H 42-75 % Lymphocytes (%) (Auto) 10 L 12-44 % Monocytes (%) (Auto) 7 0-12 % Eosinophils (%) (Auto) 6 0-10 % Basophils (%) (Auto) 0 0-10 % Neutrophils # (Auto) 9.0 H 1.8-7.8 X 10^3 Lymphocytes # (Auto) 1.2 1.0-4.0 X 10^3 Monocytes # (Auto) 0.8 0.0-1.0 X 10^3 Eosinophils # (Auto) 0.7 H 0.0-0.3 10^3/uL Basophils # (Auto) 0.0 0.0-0.1 10^3/uL Sodium Level 139 135-145 MMOL/L Potassium Level 4.4 3.6-5.0 MMOL/L Chloride Level 95 L 98-107 MMOL/L Carbon Dioxide Level 23 21-32 MMOL/L Anion Gap 21 H 5-14 MMOL/L Blood Urea Nitrogen 52 H 7-18 MG/DL Creatinine 16.23 H 0.60-1.30 MG/DL Estimat Glomerular Filtration Rate 2 BUN/Creatinine Ratio 3 Glucose Level 100 70-105 MG/DL Calcium Level 10.3 H 8.5-10.1 MG/DL Blood Gas Puncture Site LEFT RADIAL Blood Gas Patient Temperature 98.3 Arterial Blood pH 7.48 H 7.37-7.43 Arterial Blood Partial Pressure CO2 30 L 35-45 MMHG Arterial Blood Partial Pressure O2 56 L 79-93 MMHG Arterial Blood HCO3 22 L 23-27 MMOL/L Arterial Blood Total CO2 22.8 21.0-31.0 MMOL/L Arterial Blood Oxygen Saturation 90 L 94-100 % Arterial Blood Base Excess -1.2 -2.5-2.5 MMOL/L Herber Test POSITIVE Blood Gas Ventilator Setting YES Blood Gas Inspired Oxygen 2 My Orders Orders - CHRISSIE MATTHEWS APRN Iv Heplock-Insert (Order) (10/07/18 19:22) Ketorolac Injection (Toradol Injection) (10/07/18 19:30) Ketorolac Injection (Toradol Injection) (10/07/18 19:30) Methylprednisolone Sod Succ (Solu-Medrol (10/07/18 19:30) Ondansetron Injection (Zofran Injectio (10/07/18 19:30) Cbc With Automated Diff (10/07/18 19:22) Basic Metabolic Panel (10/07/18 19:22) Albuterol/Ipra Inhalation Soln (Duoneb I (10/07/18 19:30) Svn Small Volume Nebulizer (10/07/18 19:23) Chest Pa/Lat (2 View) (10/07/18 19:32) Ekg Tracing (10/07/18 20:14) Arterial Blood Gas (10/07/18 20:53) Medications Given in ED Current Medications Medications Dose Ordered Sig/Patience Route Start Time Stop Time Status Last Admin Dose Admin Albuterol/ Ipratropium 3 ml ONCE ONCE INH 10/07/18 19:30 10/07/18 19:32 DC 10/07/18 19:39 3 ML Ketorolac Tromethamine 30 mg ONCE ONCE IVP 10/07/18 19:30 10/07/18 19:32 DC 10/07/18 20:10 30 MG Methylprednisolone Sodium Succinate 125 mg ONCE ONCE IVP 10/07/18 19:30 10/07/18 19:32 DC 10/07/18 20:09 125 MG Ondansetron HCl 8 mg ONCE ONCE IVP 10/07/18 19:30 10/07/18 19:32 DC 10/07/18 20:10 8 MG Vital Signs/I&O 10/07/18 19:39 O2 Delivery OxyMask O2 Flow Rate 2.00 FiO2 95 Capillary Refill : Diagnostic Imaging Diagonstic Imaging: Xray Comments NAME: [facility] REC#: [id number] PT STATUS: REG ER : 1965 PHYSICIAN: CHRISSIE MATTHEWS APRN ADMIT DATE: 10/07/18/ER Draft Date of Exam:10/07/18 CHEST PA/LAT (2 VIEW) INDICATION: Respiratory problems EXAMINATION: Two-view chest 10/07/2018 COMPARISON: 06/16/2018 FINDINGS: The cardiomediastinal silhouette is unremarkable. The pulmonary vasculature is within normal limits. The lungs and pleural spaces are clear. IMPRESSION: No evidence of an acute cardiopulmonary process. Dictated on workstation # [id number] Dict: 10/07/182016 Trans: 10/07/182018 ANISH [id number] Interpreted by: MAX BONNER MD Electronically signed by: Departure Communication (Admissions) 6250- she is only 89% on 2 L so she was increased to 4 L which increased her SPO2 to 93%. I spoke with Dr. Yoder hospitalist at [facility]. Since she is hypoxic and does not have oxygen at home we will need to transfer her to a facility that can manage her peritoneal dialysis needs. I did do an EKG because of the hypoxia. This is different than the one that we did back in June 2018 and the difference is about [address] depression in lead 2 and T-wave inversion in lead V4 and V5. She has no chest pain. I did relay these findings to Dr. Yoder. I did not check a troponin because of her creatinine being 16 it will likely be elevated and does not have much value in her situation. Impression Primary Impression: COPD exacerbation Additional Impressions: End-stage renal disease on peritoneal dialysis Hypoxia Disposition: XFER SHT-TRM HOSP Condition: Stable Departure-Patient Inst. Referrals: [facility] (PCP/Family) Primary Care Physician CHRISSIE MATTHEWS APRN Oct 07, 2018 19:36
[2018-10-07 19:55] LABS: CALCIUM 10.3 MG/DL (8.5-10.1); CREATININE SERUM 16.23 MG/DL (0.60-1.30); POTASSIUM 4.4 MMOL/L (3.6-5.0)
--- NOTE | 2018-10-07 20:20 | Diagnostic Imaging Report ---
INDICATION: Respiratory problems EXAMINATION: Two-view chest 10/07/2018 COMPARISON: 06/16/2018 FINDINGS: The cardiomediastinal silhouette is unremarkable. The pulmonary vasculature is within normal limits. The lungs and pleural spaces are clear. IMPRESSION: No evidence of an acute cardiopulmonary process. Dictated by: Dictated on workstation # [id number]
[2018-10-07 21:00] LABS: ABG BASE EXCESS -1.2 MMOL/L (-2.5-2.5); ABG OXYGEN SATURATION 90 % (94-100); ABG PCO2 30 MMHG (35-45); ABG PH 7.48 (7.37-7.43); ABG PO2 56 MMHG (79-93); ABG TCO2 22.8 MMOL/L (21.0-31.0); ALLENS TEST POSITIVE; INSPIRED O2 2; PATIENT TEMP 98.3; VENTILATOR YES
[2018-10-07] MEDS ORDERED: ASPIRIN 81 MG CHEW (CHILDREN'S ASA) PO ONE (22:00)
[2018-10-07 22:28] VITALS: BP 119/79
== END 2018-10-07 23:02 | disposition short-term general hospital (02) ==
LOC: EDUNIT# 18:56 → ER 18:57
DX: J44.1 Chronic obstructive pulmonary disease with (acute) exacerbation (principal); N18.6 End stage renal disease; Z99.2 Dependence on renal dialysis; Z85.828 Personal history of other malignant neoplasm of skin; Z90.710 Acquired absence of both cervix and uterus; Z87.448 Personal history of other diseases of urinary system; Z88.5 Allergy status to narcotic agent; Z88.0 Allergy status to penicillin; Z88.8 Allergy status to other drugs, medicaments and biological substances
CPT/HCPCS: 36415; 71046; 80048; 82805; 85025; 93005; 94640

== ENCOUNTER 2018-11-13 20:03 | Emergency (ER) | payer MEDICARE ==
[~2018-11-13] VITALS: Ht 167.6 cm; Wt 73.5 kg
[2018-11-13] MEDS ORDERED: ONDANSETRON 4 MG/2 ML (SDV) Z0FRAN IVP ONE (20:15)
[2018-11-13] MEDS ORDERED: fentaNYL INJECTION 100 MCG/2 ML AMP ONE (20:17)
--- NOTE | 2018-11-13 20:34 | ED Abdominal Pain ---
General Chief Complaint: Abdominal/GI Problems Stated Complaint: VOMITTING,ABD PAIN,DIALYSIS PATIENT Source of Information: Patient Exam Limitations: No Limitations History of Present Illness Date Seen by Provider: Nov 13, 2018 Time Seen by Provider: 20:31 Initial Comments To ER with reports of nausea, vomiting, diffuse abdominal pain low-grade fever and cloudy peritoneal fluid. Symptoms began this morning. She called her creative intern at [facility] who advised her to start her antibiotic but she cannot recall what the name of this was. Concerns for peritonitis. She does receive peritoneal dialysis at home, did 6 hours of peritoneal dialysis earlier today, removed 2 L of fluid just prior to arrival here about 45 minutes ago and brought this fluid with her in the sterile fluid collection bag from the peritoneal dialysis machine. Timing/Duration: 12 Hours Severity/Quality: Moderate, Severe Location: Generalized Abdomen Radiation: No Radiation Activities at Onset: None Associated Symptoms: Fever/Chills, Nausea/Vomiting Allergies and Home Medications Allergies Coded Allergies: gentamicin (Verified Allergy, Mild, 02/10/18) morphine (Verified Allergy, Mild, 02/10/18) amoxicillin (Verified Allergy, Unknown, 03/25/18) clavulanic acid (Verified Allergy, Unknown, 03/25/18) Uncoded Allergies: [id number] (SULFA (SULFONAMIDE ANTIBIOTICS)) (Allergy, Mild, 10/10/09) Home Medications Hydrocodone Bit/Acetaminophen 1 Tab Tablet, 1-2 TAB PO Q6H FOR PAIN Prescribed by: WILLIE FULLER on 06/10/13 0720 Hydrocodone/Acetaminophen 1 Each Tablet, 1 EACH PO 4 TIMES A DAY Prescribed by: JEREMIAS OTT on 03/25/18 1421 Mycophenolate Mofetil 500 Mg Tablet, 500 MG PO BID, (Reported) Tacrolimus Anhydrous 1 Mg Capsule, 2 MG PO BID, (Reported) Tramadol Hcl 50 Mg Tab, 50 MG PO Q4-6HOURS PRN FOR PAIN Prescribed by: WILLIE FULLER on 06/10/13 0720 Venlafaxine Hcl 75 Mg Tablet, 75 MG PO BID, (Reported) Patient Home Medication List Home Medication List Reviewed: Yes Review of Systems Review of Systems Constitutional: see HPI, chills, fever EENTM: No Symptoms Reported Respiratory: No Symptoms Reported Cardiovascular: No Symptoms Reported Gastrointestinal: See HPI, Abdominal Pain, Nausea, Vomiting Genitourinary: No Symptoms Reported Musculoskeletal: no symptoms reported Skin: no symptoms reported Psychiatric/Neurological: No Symptoms Reported Endocrine: No Symptoms Reported Past Bfwruft-Zktpce-Uqowwt Hx Patient Social History Alcohol Use: Denies Use Recreational Drug Use: No Smoking Status: Current Everyday Smoker Type Used: Cigarettes 2nd Hand Smoke Exposure: No Recent Foreign Travel: No Contact w/Someone Who Travel: No Physical Abuse: No Sexual Abuse: No Mistreated: No Fear: No Immunizations Up To Date Tetanus Booster (TDap): Unknown Past Medical History Surgeries: Yes (peritonela dialysis, kidney transplant ) Section, Kidney Transplant Respiratory: Yes Asthma, COPD Cardiac: No Hypertension Neurological: No SUGAR DRIER History: Menopausal Genitourinary: Yes (last dialysis 10-06-18) Renal Failure, Dialysis Gastrointestinal: Yes Ulcer Musculoskeletal: Yes Degenerate Disk Disease, Chronic Back Pain Endocrine: No HEENT: No Cancer: Yes Skin Psychosocial: No Integumentary: No Blood Disorders: No Physical Exam Vital Signs Vital Signs - First Documented 11/13/18 20:25 Temp 99.9 Pulse 96 Resp 16 B/P (MAP) 171/102 (125) Pulse Ox 91 O2 Delivery Nasal Cannula O2 Flow Rate 2.00 Capillary Refill : Height/Weight/BMI Height: 5'6.00" Weight: 163lbs. oz. 73.072292jr; 33.28 BMI Method:Stated General Appearance: WD/WN, no apparent distress, other (alert and oriented GCS 15) HEENT: PERRL/EOMI, normal ENT inspection Neck: non-tender, full range of motion Respiratory: normal breath sounds, no respiratory distress, no accessory muscle use Cardiovascular: no murmur, tachycardia (rate of about 100 sinus) Gastrointestinal: soft; No distended, No guarding, No rebound; tenderness ( diffuse), other (peritoneal dialysis catheter is in place without surrounding erythema at the insertion site) Extremities: normal range of motion, non-tender Neurologic/Psychiatric: alert, normal mood/affect, oriented x 3 Skin: normal color, warm/dry Exam Comments She does not have the access device with her to access the peritoneal dialysis catheter (nor do we have that here) to obtain a sample of peritoneal fluid directly from the catheter. She did bring with her the single use 2L bag that attaches to the peritoneal dialysis machine at home, this does have a port that can be accessed with a blunt needle so a sample of this cloudy yellowish yi effluent was collected and sent to lab for cell count and differential as well as culture and Gram stain. Focused Exam Lactate Level 11/13/18 20:20: Lactic Acid Level 1.47 Lactic Acid Level Laboratory Tests Test 11/13/18 20:20 Lactic Acid Level 1.47 MMOL/L (0.50-2.00) Procedures/Interventions Suture Size: 5-0 Progress/Results/Core Measures Results/Orders Lab Results Laboratory Tests Test 11/13/18 19:00 11/13/18 20:20 Range/Units Body Fluid Source PERITON Body Fluid Color COLORLESS Body Fluid Appearance SLT CLDY Body Fluid WBC 2800 /uL Body Fluid RBC 50 /uL Body Fluid Polynuclear WBCs 89 % Body Fluid Mononuclear WBCs 4 % Body Fluid Lymphocytes 7 % Body Fluid Other Cells 0 % Body Fluid Glucose 114 MG/DL Body Fluid Total Protein < 0.8 G/DL White Blood Count 13.7 H 4.3-11.0 10^3/uL Red Blood Count 2.71 L 4.35-5.85 10^6/uL Hemoglobin 8.8 L 11.5-16.0 G/DL Hematocrit 27 L 35-52 % Mean Corpuscular Volume 99 80-99 FL Mean Corpuscular Hemoglobin 32 25-34 PG Mean Corpuscular Hemoglobin Concent 33 32-36 G/DL Red Cell Distribution Width 12.8 10.0-14.5 % Platelet Count 201 130-400 10^3/uL Mean Platelet Volume 9.7 7.4-10.4 FL Neutrophils (%) (Auto) 86 H 42-75 % Lymphocytes (%) (Auto) 7 L 12-44 % Monocytes (%) (Auto) 5 0-12 % Eosinophils (%) (Auto) 2 0-10 % Basophils (%) (Auto) 0 0-10 % Neutrophils # (Auto) 11.7 H 1.8-7.8 X 10^3 Lymphocytes # (Auto) 1.0 1.0-4.0 X 10^3 Monocytes # (Auto) 0.7 0.0-1.0 X 10^3 Eosinophils # (Auto) 0.2 0.0-0.3 10^3/uL Basophils # (Auto) 0.0 0.0-0.1 10^3/uL Prothrombin Time 14.2 12.2-14.7 SEC INR Comment 1.1 0.8-1.4 Activated Partial Thromboplast Time 33 24-35 SEC Sodium Level 140 135-145 MMOL/L Potassium Level 4.5 3.6-5.0 MMOL/L Chloride Level 96 L 98-107 MMOL/L Carbon Dioxide Level 26 21-32 MMOL/L Anion Gap 18 H 5-14 MMOL/L Blood Urea Nitrogen 45 H 7-18 MG/DL Creatinine 15.00 H 0.60-1.30 MG/DL Estimat Glomerular Filtration Rate 3 BUN/Creatinine Ratio 3 Glucose Level 92 70-105 MG/DL Lactic Acid Level 1.47 0.50-2.00 MMOL/L Calcium Level 9.6 8.5-10.1 MG/DL Corrected Calcium 10.2 H 8.5-10.1 MG/DL Total Bilirubin 0.4 0.1-1.0 MG/DL Aspartate Amino Transf (AST/SGOT) 15 5-34 U/L Alanine Aminotransferase (ALT/SGPT) < 6 0-55 U/L Alkaline Phosphatase 69 40-136 U/L Total Protein 6.2 L 6.4-8.2 GM/DL Albumin 3.3 3.2-4.5 GM/DL Micro Results Microbiology 11/13/18 Influenza Types A,B Antigen (JERONIMO) - Final, Complete My Orders Orders - CHRISSIE MATTHEWS APRN Cbc With Automated Diff (11/13/18 20:10) Comprehensive Metabolic Panel (11/13/18 20:10) Iv Heplock-Insert (Order) (11/13/18 20:10) Ondansetron Injection (Zofran Injectio (11/13/18 20:15) Fentanyl Injection (Sublimaze Injection (11/13/18 20:17) Blood Culture (11/13/18 20:25) Sputum Culture (11/13/18 20:25) Urinalysis (11/13/18 20:25) Urine Culture (11/13/18 20:25) Protime With Inr (11/13/18 20:25) Partial Thromboplastin Time (11/13/18 20:25) Chest 1 View, Ap/Pa Only (11/13/18 20:25) Vital Signs Adult Sepsis Patie Q15M (11/13/18 20:25) O2 (11/13/18 20:25) Remove Rings In Anticipation O (11/13/18 20:25) Lactic Acid Analyzer (11/13/18 20:25) Influenza A And B Antigens (11/13/18 20:25) Body Fluid Cell Count (11/13/18 20:25) Body Fluid Culture (11/13/18 20:25) Total Protein,Body Fluid (11/13/18 21:16) Glucose,Body Fluid (11/13/18 21:16) Ceftriaxone For Iv Use (Rocephin For I (11/13/18 21:30) Metronidazole 500mg/100ml Ivpb (Flagyl 5 (11/13/18 21:30) Fentanyl Injection (Sublimaze Injection (11/13/18 22:30) Medications Given in ED Current Medications Medications Dose Ordered Sig/Patience Route Start Time Stop Time Status Last Admin Dose Admin Ceftriaxone Sodium 1000 mg/ Sterile Water 10 ml @ 200 mls/hr ONCE ONCE IV 11/13/18 21:30 11/13/18 21:32 DC 11/13/18 21:36 200 MLS/HR Fentanyl Citrate 100 mcg STK-MED ONCE .ROUTE 11/13/18 20:17 11/13/18 20:19 DC 11/13/18 20:20 50 MCG Metronidazole 100 ml @ 100 mls/hr ONCE ONCE IV 11/13/18 21:30 11/13/18 22:29 11/13/18 21:38 100 MLS/HR Ondansetron HCl 8 mg ONCE ONCE IVP 11/13/18 20:15 11/13/18 20:16 DC 11/13/18 20:20 8 MG Vital Signs/I&O 11/13/18 11/13/18 20:25 20:33 Temp 99.9 Pulse 96 Resp 16 B/P (MAP) 171/102 (125) Pulse Ox 91 91 O2 Delivery Nasal Cannula Nasal Cannula O2 Flow Rate 2.00 2.00 Diagnostic Imaging Comments NAME: BELENED MED REC#: [id number] PT STATUS: REG ER : 1965 PHYSICIAN: CHRISSIE MATTHEWS APRN ADMIT DATE: 11/13/18/ER Draft Date of Exam:11/13/18 CHEST 1 VIEW, AP/PA ONLY INDICATION: Cough, nausea, and vomiting EXAMINATION: Chest 11/13/2018 COMPRESSION: 10/07/2018 FINDINGS: The cardiomediastinal silhouette is unremarkable. The pulmonary vasculature is within normal limits. The lungs and pleural spaces are clear. IMPRESSION: No evidence of an acute cardiopulmonary process. Dictated on workstation # [id number] Dict: 11/13/182049 Trans: 11/13/182050 [facility] 9271-8911 Interpreted by: MAX BONNER MD Electronically signed by: Departure Communication (Admissions) [id number]- Dr Sanchez has kindly accepted the patient in transfer to the medical unit at [facility]. Impression Primary Impression: Peritonitis (acute) generalized Additional Impression: End-stage renal disease on peritoneal dialysis Disposition: SHT-TRM HOSP Condition: Stable Departure-Patient Inst. Referrals: [facility] (PCP/Family) Primary Care Physician CHRISSIE MATTHEWS APRN Nov 13, 2018 20:34
[2018-11-13 20:40] LABS: BASOPHILS % (AUTO) 0 % (0-10); EOSINOPHILS # (AUTO) 0.2 10^3/uL (0.0-0.3); EOSINOPHILS % (AUTO) 2 % (0-10); HEMATOCRIT 27 % (35-52); HEMOGLOBIN 8.8 G/DL (11.5-16.0); LYMPHOCYTES % (AUTO) 7 % (12-44); MEAN CORPUSCULAR HEMOGLOBIN 32 PG (25-34); MEAN CORPUSCULAR HGB CONC 33 G/DL (32-36); MEAN CORPUSCULAR VOLUME 99 FL (80-99); MEAN PLATELET VOLUME 9.7 FL (7.4-10.4); MONOCYTES # (AUTO) 0.7 X 10^3 (0.0-1.0); MONOCYTES % (AUTO) 5 % (0-12); NEUTROPHILS # (AUTO) 11.7 X 10^3 (1.8-7.8); NEUTROPHILS % (AUTO) 86 % (42-75); PLATELET COUNT 201 10^3/uL (130-400); RED CELL DISTRIBUTION WIDTH 12.8 % (10.0-14.5); WHITE BLOOD COUNT 13.7 10^3/uL (4.3-11.0)
--- NOTE | 2018-11-13 20:52 | Diagnostic Imaging Report ---
INDICATION: Cough, nausea, and vomiting EXAMINATION: Chest 11/13/2018 COMPRESSION: 10/07/2018 FINDINGS: The cardiomediastinal silhouette is unremarkable. The pulmonary vasculature is within normal limits. The lungs and pleural spaces are clear. IMPRESSION: No evidence of an acute cardiopulmonary process. Dictated by: Dictated on workstation # [id number]
[2018-11-13 20:54] LABS: ALANINE AMINOTRANSFERASE < 6 U/L (0-55); ALBUMIN 3.3 GM/DL (3.2-4.5); ALKALINE PHOSPHATASE 69 U/L (40-136); BILIRUBIN,TOTAL 0.4 MG/DL (0.1-1.0); BUN/CREATININE RATIO 3; CALCIUM 9.6 MG/DL (8.5-10.1); CARBON DIOXIDE 26 MMOL/L (21-32); CHLORIDE 96 MMOL/L (98-107); GFR ESTIMATED 3; GLUCOSE 92 MG/DL (70-105); POTASSIUM 4.5 MMOL/L (3.6-5.0); SODIUM 140 MMOL/L (135-145); TOTAL PROTEIN 6.2 GM/DL (6.4-8.2)
[2018-11-13 21:02] LABS: INR 1.1 (0.8-1.4); PROTHROMBIN TIME PATIENT 14.2 SEC (12.2-14.7)
[2018-11-13 21:27] LABS: BF OTHER CELLS 0 %; BODY FLUID APPEARENCE SLT CLDY; BODY FLUID COLOR COLORLESS; BODY FLUID RBC COUNT 50 /uL; BODY FLUID SOURCE PERITON; BODY FLUID WBC TOTAL COUNT 2800 /uL; LYMPHOCYTES,BODY FLUID 7 %
[2018-11-13] MEDS ORDERED: metroNIDAZOLE 500MG/100ML IVPB 100 ML IV ONE (21:30)
[2018-11-13] MEDS ORDERED: cefTRIAXone FOR IV USE 1,000 MG in WATER (STERILE) FOR INJECTION 10 ML IV ONE (21:30)
--- OUTSIDE RECORDS SUMMARY | 2018-11-13 21:33 | XMS REPORT | Encounter Summary ---
Author Author [facility] Organization [facility] Address Unknown Phone Unavailable Care Team Providers Care Leave Coordinator Name Role Phone Brent Jarvis MD [...] Lennie Espinal Unavailable Bhumika Guillen MD Unavailable Unavailable Meagan Santos Unavailable Unavailable Alicia Manrique PRODUCE DEPARTMENT MANAGER Unavailable Reason for Visit * Reason Comments Kidney Evaluation Encounter Details Care Team Description Date Type Department Jenna Mireles RN Kidney Evaluation [facility]/06[facility]2018 [facility] [address] [place] [address] Social History Date Tobacco Use Types Packs/Day [...] Telephone Encounter - Jenna Mireles RN - 11/06/2018 1:15 PM HONING MACHINE TRY OUT SETTER Called and left a voicemail with my contact information in regards to her pre- transplant evaluation. NG MACHINE TRY OUT SETTER in this encounter Plan of Treatment Not on fileas of this encounter Visit Diagnoses Not on filein this encounter
--- OUTSIDE RECORDS SUMMARY | 2018-11-13 21:33 | XMS REPORT | Clinical Summary ---
Author Author [facility] Organization [facility] Address Unknown Phone Unavailable Care Team Providers Care Cutter Grinder Operator Name Role Phone Brent Jarvis MD [...] RN Unavailable Paula Morris Unavailable Unavailable Sadaf Catry Unavailable Unavailable Manuela Urias LPN Unavailable Unavailable Yamilet Don Unavailable Unavailable Jaya Villanueva RN Unavailable Annel Sanchez Unavailable Unavailable Lorene Salvador RN Unavailable Unavailable Lennie Espinal Unavailable Bhumika Guillen MD Unavailable Unavailable Meagan Santos Unavailable Unavailable Alicia Manrique LOFT WORKER HEAD Unavailable Source Comments Some departments are not documenting in the electronic medical record. If you do not see the information that you expected, contact Release of Information in the Health Information Management department at [phone] for further assistance in locating additional records.[facility] Allergies Comments Active Allergy Reactions Severity [...] Type Specialty Jenna Mireles RN Kidney Evaluation 11/06/2018 Telephone Transplant Surgery Lucia Brito RN Follow-up Phone Call 10/24/2018 Telephone Transplant Surgery Jenna Mireles RN Kidney Evaluation 10/10/2018 Telephone Transplant Surgery Jenna Mireles RN Kidney Evaluation 09/19/2018 Telephone Transplant Surgery Jenna Mireles RN Kidney Evaluation 08/30/2018 Telephone Transplant Surgery Jenna Mireles RN Kidney Evaluation 08/16/2018 Telephone Transplant Surgery from Last 3 Months [...] 36.7 C (98.1 F) 10/06/2016 8:39 AM WATER FITNESS INSTRUCTOR Respiratory Rate 16 01/16/2018 12:15 PM CDT [...] on file. For more information, please contact: [facility] [address] [place] [address] Date Inactivated Comments Code Status Date Activated 06/12/2017 6:40 PM Full Code 06/11/2017 5:42 AM Provider has discussed Code Status No, more discussion w/Patient or Family? needed 10/14/2009 4:49 PM Full Code 10/11/2009 11:30 PM 01/09/2009 8:43 PM Full Code 01/07/2009 1:22 AM
--- OUTSIDE RECORDS SUMMARY | 2018-11-13 21:33 | XMS REPORT | Encounter Summary ---
Author Author [facility] Organization [facility] Address Unknown Phone Unavailable Care Team Providers Care Warehouse Puller Name Role Phone Brent Jarvis MD Unavailable [...] Unavailable Unavailable Yamilet Don Unavailable Unavailable Jaya Villauneva RN Unavailable Annel Sanchez Unavailable Unavailable Lorene Salvador RN Unavailable Unavailable Lennie Espinal Unavailable Bhumika Guillen MD Unavailable Unavailable Meagan Santos Unavailable Unavailable Alicia Manrique SEWAGE SCREEN OPERATOR Unavailable Reason for Visit * Reason Comments Kidney Evaluation Encounter Details Care Team Description Date Type Department Jenna Mireles RN Kidney Evaluation 10/10/2018 Telephone [facility] 1st FLOOR [address] [place] [address] Social History Date Tobacco Use Types Packs/Day [...] Telephone Encounter - Jenna Mireles RN - 10/10/2018 10:48 AM MECHANICAL SERVICE SPECIALIST Spoke to an RN at dialysis and they reported they thought her insurance issue was resolved starting the beginning of this year. So then she would potentially start getting her testing completed. Left message for the patient stating that I was checking on her progress with her evaluation. It was coming up on a year ortiz of her evaluation being open and we need to see progress or we can close her evaluation to come back when she is ready to complete the testing. Left contact information so she call me back to update me on her progress. ANICAL SERVICE SPECIALIST in this encounter Plan of Treatment Not on fileas of this encounter Visit Diagnoses Not on filein this encounter
--- OUTSIDE RECORDS SUMMARY | 2018-11-13 21:33 | XMS REPORT | Encounter Summary ---
Author Author [facility] Organization [facility] Address Unknown Phone Unavailable Care Team Providers Care Road Crew Member Name Role Phone Brent Jarvis MD Unavailable [...] Unavailable Meagan Santos Unavailable Unavailable Alicia Manrique VEGETABLE FARM MANAGER Unavailable Reason for Visit * Reason Comments Follow-up Phone Call Encounter Details Care Team Description Date Type Department Lucia Brito RN Follow-up Phone Call 10/24/2018 Telephone [facility] 1st [address]LO[address] [place] [address] Social History Date Tobacco Use Types Packs/Day [...] Telephone Encounter - Lucia Brito RN - 10/24/2018 4:05 PM [employer] ----- Message from Marlena Echevarria sent at 10/24/2018 8:21 AM [employer] ----- Contact: Vannesa pt. Called she said she have a Mass on her Kidney and really need to talk to you, please call pt. [employer] in this encounter Plan of Treatment Not on fileas of this encounter Visit Diagnoses Not on filein this encounter
[2018-11-13 21:34] LABS: GLUCOSE,BODY FLUID 114 MG/DL; TOTAL PROTEIN,BODY FLUID < 0.8 G/DL
--- OUTSIDE RECORDS SUMMARY | 2018-11-13 21:34 | XMS REPORT | Encounter Summary ---
Author Author [facility] Organization [facility] Address Unknown Phone Unavailable Care Team Providers Care Internal Revenue Agent Name Role Phone Brent Jarvis MD Unavailable Jessica Portillo RN Unavailable Unavailable Luz Elena Mireles RN Unavailable Unavailable Yolie Cahves MD Unavailable Phu Luevano MD Unavailable Unavailable [...] Unavailable Meagan Santos Unavailable Unavailable Alicia Manrique LARD MAKER Unavailable Reason for Visit * Reason Comments Kidney Evaluation Encounter Details Care Team Description Date Type Department Jenna Mireles RN Kidney Evaluation 08/30[facility]2018 [facility] [address] [place] [address] Social History Date Tobacco Use Types Packs/Day [...] Jenna Mireles RN - 08/30/2018 10:51 AM BLOOD OR BLOOD BANK TECHNICIAN Left voicemail D OR BLOOD BANK TECHNICIAN in this encounter Plan of Treatment Not on fileas of this encounter Visit Diagnoses Not on filein this encounter
--- OUTSIDE RECORDS SUMMARY | 2018-11-13 21:34 | XMS REPORT | Continuity of Care Document ---
Author Author [facility] Organization [facility] Address Unknown Phone Unavailable Allergies Active Description Code Type Severity Reaction Onset Reported/Identified Relationship to Patient Clinical Status Yes [id number] (SULFA (SULFONAMIDE ANTIBIOTICS)) [id number] (SULFA (SULFONAMIDE ANTIBIOTICS)) Mild N/A 10/10/2009 Yes Gentamicin [id number] Drug Allergy Mild N/A 02/10/2018 Yes morphine [id number] Drug Allergy Mild N/A 02/10/2018 Yes amoxicillin [id number] Drug Allergy Unknown N/A 03/25/2018 Yes clavulanic acid [id number] Drug Allergy Unknown N/A 03/25/2018 Medications There [...] TO OTHER ANTIBIOTIC AGENT 02/13/2018 CHRISSIE MATTHEWS LEADERSHIP DEVELOPMENT INSTRUCTOR Ot Z88.5 ALLERGY STATUS TO NARCOTIC AGENT [...] Ot Z99.2 DEPENDENCE ON RENAL DIALYSIS 10/04/2018 JONNY DO WILLIE K Ot 717.7 CHONDROMALACIA PATELLAE 10/04/2018 JONNY GUEVARA WILLIE K Ot 719.06 JOINT EFFUSION-L/LEG 10/04/2018 JONNY GUEVARA WILLIE K Ot 719.46 JOINT PAIN-L/LEG 10/04/2018 NELLIE MEDRANO, TAMMY Ot N28.9 DISORDER OF KIDNEY AND URETER, UNSPECIFI 10/04/2018 NELLIE MEDRANO, TAMMY Ot Z94.0 KIDNEY TRANSPLANT STATUS 10/07/2018 JONNY GUEVARA WILLIE K Ot 717.7 CHONDROMALACIA PATELLAE 10/07/2018 JONNY DO WILLIE K Ot 719.06 JOINT EFFUSION-L/LEG 10/07/2018 JONNY GUEVARA WILLIE K Ot 719.46 JOINT PAIN-L/LEG 10/07/2018 NELLIE MEDRANO, TAMMY Ot N28.9 DISORDER OF KIDNEY AND URETER, UNSPECIFI 10/07/2018 NELLIE MEDRANO, TAMMY Ot Z94.0 KIDNEY TRANSPLANT STATUS 10/07/2018 CHRISSIE MATTHEWS APRN Ot H92.01 OTALGIA, RIGHT EAR 10/07/2018 CHRISSIE MATTHEWS APRN Ot J44.1 CHRONIC OBSTRUCTIVE PULMONARY DISEASE W 10/07/2018 CHRISSIE MATTHEWS APRN Ot N18.6 END STAGE RENAL DISEASE 10/07/2018 CHRISSIE MATTHEWS APRN Ot Z85.828 PERSONAL HISTORY OF OTHER MALIGNANT NEOP 10/07/2018 CHRISSIE MATTHEWS APRN Ot Z87.448 PERSONAL HISTORY OF OTHER DISEASES OF UR 10/07/2018 CHRISSIE MATTHEWS APRN Ot Z88.0 ALLERGY STATUS TO PENICILLIN 10/07/2018 CHRISSIE MATTHEWS APRN Ot Z88.5 ALLERGY STATUS TO NARCOTIC AGENT STATUS 10/07/2018 CHRISSIE MATTHEWS APRN Ot Z88.8 ALLERGY STATUS TO OTH DRUG/MEDS/BIOL SUB 10/07/2018 CHRISSIE MATTHEWS APRN Ot Z90.710 ACQUIRED ABSENCE OF BOTH CERVIX AND UTER 10/07/2018 CHRISSIE MATTHEWS APRN Ot Z99.2 DEPENDENCE ON RENAL DIALYSIS 10/10/2018 CHRISSIE MATTHEWS APRN Ot H92.01 OTALGIA, RIGHT EAR 10/10/2018 CHRISSIE MATTHEWS APRN Ot J44.1 CHRONIC OBSTRUCTIVE PULMONARY DISEASE W 10/10/2018 CHRISSIE MATTHEWS APRN Ot N18.6 END STAGE RENAL DISEASE 10/10/2018 CHRISSIE MATTHEWS APRN Ot Z85.828 PERSONAL HISTORY OF OTHER MALIGNANT NEOP 10/10/2018 CHRISSIE MATTHEWS APRN Ot Z87.448 PERSONAL HISTORY OF OTHER DISEASES OF UR 10/10/2018 CHRISSIE MATTHEWS APRN Ot Z88.0 ALLERGY STATUS TO PENICILLIN 10/10/2018 CHRISSIE MATTHEWS APRN Ot Z88.5 ALLERGY STATUS TO NARCOTIC AGENT STATUS 10/10/2018 CHRISSIE MATTHEWS APRN Ot Z88.8 ALLERGY STATUS TO OTH DRUG/MEDS/BIOL SUB 10/10/2018 CHRISSIE MATTHEWS APRN Ot Z90.710 ACQUIRED ABSENCE OF BOTH CERVIX AND UTER 10/10/2018 CHRISSIE MATTHEWS APRN Ot Z99.2 DEPENDENCE ON RENAL DIALYSIS Procedures There is no data. Results Test [...] ABO+Rh group AP NRG Transfusion band number [id number] NRG Blood group antibody screen NEGATIVE NRG Bacterial blood culture - 06/16/18 17:07 Bacterial blood culture NG NRG Bacterial blood culture - 06/16/18 17:36 Bacterial blood culture NG NRG Complete blood count (CBC) with automated white blood cell (WBC) differential - 10/07/18 19:30 Blood leukocytes automated count (number/volume) 11.8 10*3/uL 4.3-11.0 Blood erythrocytes automated count (number/volume) 3.50 10*6/uL 4.35-5.85 Venous blood hemoglobin measurement (mass/volume) 11.3 g/dL 11.5-16.0 Blood hematocrit (volume fraction) 34 % 35-52 Automated erythrocyte mean corpuscular volume 98 [foz_us] 80-99 Automated erythrocyte mean corpuscular hemoglobin (mass per erythrocyte) 32 pg 25-34 Automated erythrocyte mean corpuscular hemoglobin concentration measurement ( mass/volume) 33 g/dL 32-36 Automated erythrocyte distribution width ratio 14.0 % 10.0-14.5 Automated blood platelet count (count/volume) 263 10*3/uL 130-400 Automated blood platelet mean volume measurement 10.2 [foz_us] 7.4-10.4 Automated blood neutrophils/100 leukocytes 76 % 42-75 Automated blood lymphocytes/100 leukocytes 10 % 12-44 Blood monocytes/100 leukocytes 7 % 0-12 Automated blood eosinophils/100 leukocytes 6 % 0-10 Automated blood basophils/100 leukocytes 0 % 0-10 Blood neutrophils automated count (number/volume) 9.0 10*3 1.8-7.8 Blood lymphocytes automated count (number/volume) 1.2 10*3 1.0-4.0 Blood monocytes automated count (number/volume) 0.8 10*3 0.0-1.0 Automated eosinophil count 0.7 10*3/uL 0.0-0.3 Automated blood basophil count (count/volume) 0.0 10*3/uL 0.0-0.1 Whole blood basic metabolic panel - 10/07/18 19:30 Serum or plasma sodium measurement (moles/volume) 139 mmol/L 135-145 Serum or plasma potassium measurement (moles/volume) 4.4 mmol/L 3.6-5.0 Serum or plasma chloride measurement (moles/volume) 95 mmol/L 98-107 Carbon dioxide 23 mmol/L 21-32 Serum or plasma anion gap determination (moles/volume) 21 mmol/L 5-14 Serum or plasma urea nitrogen measurement (mass/volume) 52 mg/dL 7-18 Serum or plasma creatinine measurement (mass/volume) 16.23 mg/dL 0.60-1.30 Serum or plasma urea nitrogen/creatinine mass ratio 3 NRG Serum or plasma creatinine measurement with calculation of estimated glomerular filtration rate 2 NRG Serum or plasma glucose measurement (mass/volume) 100 mg/dL 70-105 Serum or plasma calcium measurement (mass/volume) 10.3 mg/dL 8.5-10.1 Arterial blood gas measurement - 10/07/18 20:50 Blood pCO2 30 mm[Hg] 35-45 Blood pO2 56 mm[Hg] 79-93 Arterial blood bicarbonate measurement (moles/volume) 22 mmol/L 23-27 Arterial blood base excess by calculation -1.2 mmol/L - 2.5-2.5 Arterial blood oxygen saturation measurement 90 % 94-100 * Inhaled oxygen flow rate 2 NRG Arterial blood pH measurement with patient temperature correction 7.48 7.37-7.43 Arterial blood carbon dioxide, total measurement (moles/volume) 22.8 mmol/L 21.0-31.0 Body site LEFT RADIAL NRG Assessment of wrist artery patency prior to arterial puncture POSITIVE NRG Setting of ventilation mode YES NRG Measurement of body temperature 98.3 NRG Body fluid cell count - 11/13/18 19:00 Specimen source identification of body fluid PERITON NRG Evaluation of color of body fluid COLORLESS NRG Determination of appearance of body fluid SLT CLDY NRG Body fluid leukocytes count (number/volume) 2800 /uL NRG Body fluid erythrocytes count (number/volume) 50 /uL NRG Manual body fluid polymorphonuclear cells/100 leukocytes 89 % NRG Manual body fluid mononuclear cells/100 leukocytes 4 % NRG Manual body fluid lymphocytes/100 leukocytes 7 % NRG Other cells/100 leukocytes in body fluid by manual count 0 % NRG Complete blood count (CBC) with automated white blood cell (WBC) differential - 11/13/18 20:20 Blood leukocytes automated count (number/volume) 13.7 10*3/uL 4.3-11.0 Blood erythrocytes automated count (number/volume) 2.71 10*6/uL 4.35-5.85 Venous blood hemoglobin measurement (mass/volume) 8.8 g/dL 11.5-16.0 Blood hematocrit (volume fraction) 27 % 35-52 Automated erythrocyte mean corpuscular volume 99 [foz_us] 80-99 Automated erythrocyte mean corpuscular hemoglobin (mass per erythrocyte) 32 pg 25-34 Automated erythrocyte mean corpuscular hemoglobin concentration measurement ( mass/volume) 33 g/dL 32-36 Automated erythrocyte distribution width ratio 12.8 % 10.0-14.5 Automated blood platelet count (count/volume) 201 10*3/uL 130-400 Automated blood platelet mean volume measurement 9.7 [foz_us] 7.4-10.4 Automated blood neutrophils/100 leukocytes 86 % 42-75 Automated blood lymphocytes/100 leukocytes 7 % 12-44 Blood monocytes/100 leukocytes 5 % 0-12 Automated blood eosinophils/100 leukocytes 2 % 0-10 Automated blood basophils/100 leukocytes 0 % 0-10 Blood neutrophils automated count (number/volume) 11.7 10*3 1.8-7.8 Blood lymphocytes automated count (number/volume) 1.0 10*3 1.0-4.0 Blood monocytes automated count (number/volume) 0.7 10*3 0.0-1.0 Automated eosinophil count 0.2 10*3/uL 0.0-0.3 Automated blood basophil count (count/volume) 0.0 10*3/uL 0.0-0.1 Blood lactic acid measurement (moles/volume) - 11/13/18 20:20 Blood lactic acid measurement (moles/volume) 1.47 mmol/L 0.50-2.00 Comprehensive metabolic panel - 11/13/18 20:20 Serum or plasma sodium measurement (moles/volume) 140 mmol/L 135-145 Serum or plasma potassium measurement (moles/volume) 4.5 mmol/L 3.6-5.0 Serum or plasma chloride measurement (moles/volume) 96 mmol/L 98-107 Carbon dioxide 26 mmol/L 21-32 Serum or plasma anion gap determination (moles/volume) 18 mmol/L 5-14 Serum or plasma urea nitrogen measurement (mass/volume) 45 mg/dL 7-18 Serum or plasma creatinine measurement (mass/volume) 15.00 mg/dL 0.60-1.30 Serum or plasma urea nitrogen/creatinine mass ratio 3 NRG Serum or plasma creatinine measurement with calculation of estimated glomerular filtration rate 3 NRG Serum or plasma glucose measurement (mass/volume) 92 mg/dL 70-105 Serum or plasma calcium measurement (mass/volume) 9.6 mg/dL 8.5-10.1 Serum or plasma total bilirubin measurement (mass/volume) 0.4 mg/dL 0.1-1.0 Serum or plasma alkaline phosphatase measurement (enzymatic activity/volume) 69 U/L 40-136 Serum or plasma aspartate aminotransferase measurement (enzymatic activity/ volume) 15 U/L 5-34 Serum or plasma alanine aminotransferase measurement (enzymatic activity/volume ) < U/L 0-55 Serum or plasma protein measurement (mass/volume) 6.2 g/dL 6.4-8.2 Serum or plasma albumin measurement (mass/volume) 3.3 g/dL 3.2-4.5 CALCIUM CORRECTED 10.2 mg/dL 8.5-10.1 PT panel in platelet poor plasma by coagulation assay - 11/13/18 20:20 Prothrombin time (PT) in platelet poor plasma by coagulation assay 14.2 s 12.2-14.7 INR in platelet poor plasma or blood by coagulation assay 1.1 0.8-1.4 Activated partial thromboplastin time (aPTT) in platelet poor plasma bycoagulation assay - 11/13/18 20:20 Activated partial thromboplastin time (aPTT) in platelet poor plasma bycoagulation assay 33 s 24-35 Influenza virus A and B antigen detection - 11/13/18 20:20 FLU RESULT NEGATIVE FOR INFLUENZA A AND B ANTIGENS BY IA NRG Encounters ACCT No. Visit Date/Time Discharge Status Pt. Type Provider Facility Loc./Unit Complaint [id number] 12/12/2014 09:52:55 12/12/2014 23:59:59 [facility] Outpatient RENEE GONZALEZ [id number] 10/07/2018 18:57:00 10/07/2018 23:02:00 DIS Emergency CHRISSIE MATTHEWS APRN [facility] ER R EAR PAIN/DIZZINESS/ NAUSEA [id number] 06/16/2018 15:39:00 06/16/2018 17:59:00 DIS Emergency CHRISSIE MATTHEWS APRN [facility] ER CHEST PAIN [id number] 03/25/2018 09:31:00 03/25/2018 14:37:00 DIS Emergency JEREMIAS OTT MD [facility] ER ABD PAIN, ON DIALYSIS [id number] 02/10/2018 14:15:00 02/10/2018 15:53:00 DIS Emergency CHRISSIE MATTHEWS APRN [facility] ER RT INDEX FINGER LACERATION [id number] 11/13/2015 00:08:00 11/13/2015 23:59:59 CLS Preadmit TAMMY BALLARD MD [facility] LAB TRANSPLANT-KIDNEY [id number] 08/14/2015 10:30:00 11/12/2015 00:01:00 DIS Outpatient TAMMY BALLARD MD [facility] LAB TRANSPLANT-KIDNEY [id number] 06/15/2013 11:59:00 06/15/2013 23:59:59 CLS Outpatient WILLIE FULLER DO [facility] RAD RT KNEE PAIN AND SWELLING [id number] 06/10/2013 05:31:00 06/10/2013 08:00:00 DIS Emergency WILLIE FULLER DO [facility] ER LEG PAIN [id number] 11/13/2018 20:41:00 Document Registration [id number] 02/28/2017 10:54:00 02/28/2017 23:59:00 DIS Outpatient Eligio Antonio
--- OUTSIDE RECORDS SUMMARY | 2018-11-13 21:34 | XMS REPORT | Encounter Summary ---
Author Author [facility] Organization [facility] Address Unknown Phone Unavailable Care Team Providers Care Director Economic Name Role Phone Brent Jarvis MD Unavailable [...] Unavailable Meagan Santos Unavailable Unavailable Alicia Manrique FRACTIONATION SUPERVISOR Unavailable Reason for Visit * Reason Comments Kidney Evaluation Encounter Details Care Team Description Date Type Department Jenna Mireles RN Kidney Evaluation 09/19/2018 Telephone [facility] 1st FLOOR [address] [place] [address] Social History Date Tobacco Use Types Packs/Day [...] Lucia Brito RN - 09/20/2018 3:20 PM NUCLEAR WEAPONS CUSTODIAN Attempted to contact dialysis nurse regarding message about IS meds. L/m for return call with approp phone numbers to contact. 09/20 @ 5549 Luz Elena returned call. Discussed medications with [...] discuss further care with renal team. Luz Elena stated pt was obtaining labs tomorrow. FK level should be 4-8 range per last note from LIANA. Pt was instructed to RTC in 6 months from last visit in Oct, 2017. Will -cont to monitor and follow through dialysis team. EAR WEAPONS CUSTODIAN * Telephone Encounter - Jenna Mireles RN - 09/19/2018 3:06 PM NUCLEAR WEAPONS CUSTODIAN Luz Elena called to discuss the patients [...] Vannesa for answers regarding post care questions. EAR WEAPONS CUSTODIAN in this encounter Plan of Treatment Not on fileas of this encounter Visit Diagnoses Not on filein this encounter
--- OUTSIDE RECORDS SUMMARY | 2018-11-13 21:34 | XMS REPORT | Encounter Summary ---
Author Author [facility] Organization [facility] Address Unknown Phone Unavailable Care Team Providers Care Manager Alliance Name Role Phone Brent Jarvis MD Unavailable [...] Unavailable Meagan Santos Unavailable Unavailable Alicia Manrique ORDER EDITOR Unavailable Reason for Visit * Reason Comments Kidney Evaluation Encounter Details Care Team Description Date Type Department Jenna Mireles RN Kidney Evaluation 08/16/2018 [facility] F[facility] [address] [place] [address] Social History Date Tobacco Use Types Packs/Day [...] Jenna Mireles RN - 08/16/2018 1:39 PM DEPARTMENT STORE MANAGER Called and left a message for Ju to see what her progress is with the transplant evaluation. Left contact information to return my call. RTMENT STORE MANAGER in this encounter Plan of Treatment Not on fileas of this encounter Visit Diagnoses Not on filein this encounter
[2018-11-13] MEDS ORDERED: fentaNYL INJECTION 100 MCG/2 ML AMP IVP ONE (22:30)
[2018-11-14] VITALS: BP 154/92
== END 2018-11-14 | disposition short-term general hospital (02) ==
LOC: EDUNIT# 20:03 → ER 20:05
DX: K65.0 Generalized (acute) peritonitis (principal); I12.0 Hypertensive chronic kidney disease with stage 5 chronic kidney disease or end stage renal disease; N18.6 End stage renal disease; J44.9 Chronic obstructive pulmonary disease, unspecified; F17.210 Nicotine dependence, cigarettes, uncomplicated; Z94.0 Kidney transplant status; Z85.828 Personal history of other malignant neoplasm of skin; Z98.890 Other specified postprocedural states; Z88.5 Allergy status to narcotic agent; Z88.0 Allergy status to penicillin; Z88.8 Allergy status to other drugs, medicaments and biological substances; Z99.2 Dependence on renal dialysis
CPT/HCPCS: 36415; 71045; 80053; 82945; 83605; 84157; 85025; 85610; 85730; 87040; 87070; 87205; 87804; 89051

== ENCOUNTER 2018-12-05 03:23 | Emergency (ER) | payer MEDICARE ==
[~2018-12-05] VITALS: Ht 167.6 cm; Wt 73.5 kg
--- OUTSIDE RECORDS SUMMARY | 2018-12-05 03:29 | XMS REPORT | Encounter Summary ---
Author Author [facility] Organization [facility] Address Unknown Phone Unavailable Care Team Providers Care Emergency Veterinary Technician Name Role Phone Brent Jarvis MD [...] Unavailable Meagan Santos Unavailable Unavailable Alicia Manrique HOSPITAL PHARMACIST Unavailable Reason for Visit * Reason Comments Follow-up Phone Call Encounter Details Care Team Description Date Type Department Lucia Brito RN Follow-up Phone Call 10/24/2018 Telephone The [facility] [address] [address] Social History Date Tobacco Use Types Packs/Day [...] Travel Start No recent travel history available. documented as of this encounter Functional Status Date [...] the patient have a cognitive impairment: No documented as of this encounter Miscellaneous Notes * Telephone Encounter - Lucia Brito RN - 10/24/2018 4:05 PM RETAIL SERVICE REPRESENTATIVE ----- Message from Marlena Echevarria sent at 10/24/2018 8:21 AM RETAIL SERVICE REPRESENTATIVE ----- Contact: roxy Granado. Called she said she have a Mass on her Kidney and really need to talk to you, please call pt. [place] SERVICE REPRESENTATIVE documented in this encounter Plan of Treatment Not on filedocumented as of this encounter Visit Diagnoses Not on filedocumented in this encounter
--- OUTSIDE RECORDS SUMMARY | 2018-12-05 03:29 | XMS REPORT | Encounter Summary ---
Author Author [facility] Organization [facility] Address Unknown Phone Unavailable Care Team Providers Care Customer Program Manager Name Role Phone Brent Jarvis MD [...] Unavailable Unavailable Jaya Villanueva RN Unavailable Annel aSnchez Unavailable Unavailable Lorene Salvador RN Unavailable Unavailable Lennie Espinal Unavailable Bhumika Guillen MD Unavailable Unavailable Meagan Santos Unavailable Unavailable Alicia Manrique MONEY EXAMINER Unavailable Reason for Visit * Reason Comments Kidney Evaluation Encounter Details Care Team Description Date Type Department Jenna Mireles RN Kidney Evaluation 11/28/[address] [facility] [address] [address] Social History Date Tobacco Use Types Packs/Day [...] Telephone Encounter - Jenna Mireles RN - 11/28/2018 10:07 AM CDT Called Marcela and discussed the patients current insurance. Patient only has one insurance at this time and did not apply for a secondary in June of last year so she will not be able to get a secondary this year. She will have to wait until June this year to apply for a secondary insurance, that will start Sep 052019. Called Ju and left a message for a return call. Left contact information. documented in this encounter Plan of Treatment Not on filedocumented as of this encounter Visit Diagnoses Not on filedocumented in this encounter
--- OUTSIDE RECORDS SUMMARY | 2018-12-05 03:29 | XMS REPORT | Encounter Summary ---
Author Author [facility] Organization [facility] Address Unknown Phone Unavailable Care Team Providers Care Front Desk Coordinator Name Role Phone Brent Jarvis MD [...] Unavailable Meagan Santos Unavailable Unavailable Alicia Manrique FIELD INSTRUCTOR Unavailable Reason for Visit * Reason Comments Kidney Evaluation Encounter Details Care Team Description Date Type Department Jenna Mireles RN Kidney Evaluation 10/10/2018 Telephone [facility] [address] [address] Social History Date Tobacco Use Types Packs/Day [...] Jenna Mireles RN - 10/10/2018 10:48 AM SAP BI ARCHITECT Spoke to an RN at dialysis and [...] back to update me on her progress. BI ARCHITECT documented in this encounter Plan of Treatment Not on filedocumented as of this encounter Visit Diagnoses Not on filedocumented in this encounter
--- OUTSIDE RECORDS SUMMARY | 2018-12-05 03:29 | XMS REPORT | Encounter Summary ---
Author Author [facility] Organization [facility] Address Unknown Phone Unavailable Care Team Providers Care Licensed Professional Counselor Name Role Phone Brent Jarvis MD Unavailable [...] Unavailable Bhumika Guillen MD Unavailable Unavailable Meagan Satnos Unavailable Unavailable Alicia Manrique ALLOCATION ANALYST Unavailable Reason for Visit * Reason Comments Financial/Insurance Benefit Collection Questions Encounter Details Care Team Description Date Type Department Marcela Shell Financial/Insurance Questions (Benefit Collection ) 11/20/2018 Telephone [facility] [address] [address] Social History Date Tobacco Use Types Packs/Day [...] * Telephone Encounter - Marcela Shell - 11/20/2018 10:25 AM CDT BENEFIT COLLECTION: Verified by: Marcela Burris Date: November 20, 2018 ID #: [id number] EFF:11/03/17 A&b Subscriber:Self Ins Plan:Medicare A&B Phone#:[phone] Plan Type:Traditional MEDICARE A&B - 2019 BENEFIT SUMMARY: PART A: DAYS REFRESH AFTER 60 CONSECUTIVE OUTPT DAYS DAYS 1-60 $1364 DEDUCTIBLE DAYS 61-90 $341/DAY COPAY DAYS 91-150 (USING ANY LIFETIME RESERVE DAYS) $682DAY COPAY DAYS > 150 PT PORTION 100%; after a 3-day minimum medically necessary inpatient hospital stay for a related illness or injury. PART A/ SNF BENEFITS: IN 2019: DAYS 1-20 PT PORTION $0; DAYS 21-100 $170.50/DAY COPAY; DAYS > 100 PT PORTION 100% PART B / BENEFITS IN 2019: DEDUCTIBLE $185 WITH 80% REIMBURSEMENT OF ALLOWABLE, NO OUT OF POCKET MAXIMUM MEDICARE WILL PAY FOR DRUGS INFUSED THROUGH AN ITEM OF DME, LIKE AN INFUSION PUMP, OR DRUGS GIVEN BY A NEBULIZER WHEN GIVEN BY A LICENSED MEDICAL PROVIDER. PART B WILL COVER IMMUNOSUPPRESSIVE DRUGS IF COVERED THE TRANSPLANT, EVEN SECONDARY PAYER No Case Management, No transplant Network, No prior authorizations, No benefit limits [facility] Ref.#.[phone] RX Plan:Amanda RX Saver Phone #: [phone] Drug Copay/ Coinsurance: $3.40 - $8.50 Current Subsidy: Full Extra Help Effective 09/05/18 Monthly Premium: $0 Annual Drug Deductible: $0 Valcyte:$6365.97 Not Covered Generic:$3.40 ACTIVE IN NETWORK SECONDARY COVERAGE IS REQUIRED PRIOR TO LISTING PATIENT IS RESPONSIBLE FOR 20% OF ALL OUTPATIENT SERVICES documented in this encounter Plan of Treatment Not on filedocumented as of this encounter Visit Diagnoses Not on filedocumented in this encounter
--- OUTSIDE RECORDS SUMMARY | 2018-12-05 03:29 | XMS REPORT | Encounter Summary ---
Author Author [facility] Organization [facility] Address Unknown Phone Unavailable Care Team Providers Care High School Football Coach Name Role Phone Brent Jarvis MD Unavailable Jessica Portillo RN Unavailable Unavailable Luz Elena Mireles RN Unavailable Unavailable Yolie Chaves MD Unavailable Phu Luevano MD Unavailable Unavailable Monet Samayoa Unavailable Unavailable Lorene Wheat RN Unavailable Unavailable Eligio Antonio MD PCP Layne Lynn MD Unavailable Laura Gamble RN Unavailable Lucia Brito RN Unavailable Kira Lua MD Unavailable Michelle Ketn RN Unavailable Paula Morris Unavailable Unavailable Sadaf Carty Unavailable Unavailable Manuela Urias LPN Unavailable Unavailable Yamilet Don Unavailable Unavailable Jaya Villanueva RN Unavailable Annel Sanchez Unavailable Unavailable Lorene Salvador RN Unavailable Unavailable Lennie Espinal Unavailable Bhumika Guillen MD Unavailable Unavailable Meagan Santos Unavailable Unavailable Alicia Manrique SEPTIC PUMP TRUCK DRIVER Unavailable Reason for Visit * Reason Comments Financial/Insurance INSURANCE / FINANCIAL Questions Encounter Details Care Team Description Date Type Department Marcela Shell Financial/Insurance Questions (INSURANCE / FINANCIAL) 11/20/2018 Telephone [facility] [address] [address] Social History Date Tobacco Use Types Packs/Day [...] Telephone Encounter - Marcela Shell - 11/20/2018 10:21 AM CDT INSURANCE Spoke to patient regarding her new coverage. Patient stated that she has Medicare A&B ONLY but she is at the hospital and is unable to provide me with the Medicare ID.#. Advised her to give me a call as soon as she can and provide me with the Medicare ID#. Patient verbalized understanding. MM 11/20/18 documented in this encounter Plan of Treatment Not on filedocumented as of this encounter Visit Diagnoses Not on filedocumented in this encounter
--- OUTSIDE RECORDS SUMMARY | 2018-12-05 03:29 | XMS REPORT | Encounter Summary ---
Author Author [facility] Organization [facility] Address Unknown Phone Unavailable Care Team Providers Care Cabin Agent Name Role Phone Brent Jarvis MD [...] Unavailable Meagan Santos Unavailable Unavailable Alicia Manrique MEDICAL VAN DRIVER Unavailable Reason for Visit * Reason Comments Kidney Evaluation Encounter Details Care Team Description Date Type Department Jenna Mireles RN Kidney Evaluation 09/19/2018 Telephone [facility] [address] [address] Social History Date Tobacco Use Types Packs/Day [...] Lucia Brito RN - 09/20/2018 3:20 PM HYPERBARIC TECHNICIAN Attempted to contact dialysis nurse regarding message about IS meds. L/m for return call with approp phone numbers to contact. 09/20 @ 7289 Luz Elena returned call. Discussed medications with [...] to monitor and follow through dialysis team. RBARIC TECHNICIAN * Telephone Encounter - Jenna Mireles RN - 09/19/2018 3:06 PM HYPERBARIC TECHNICIAN Luz Elena called to discuss the patients [...] Vannesa for answers regarding post care questions. RBARIC TECHNICIAN documented in this encounter Plan of Treatment Not on filedocumented as of this encounter Visit Diagnoses Not on filedocumented in this encounter
--- OUTSIDE RECORDS SUMMARY | 2018-12-05 03:29 | XMS REPORT | Encounter Summary ---
Author Author [facility] Organization [facility] Address Unknown Phone Unavailable Care Team Providers Care Inspector Process Name Role Phone Brent Jarvis MD Unavailable Jessica Portillo RN Unavailable Unavailable Luz Elena Mireles RN Unavailable Unavailable Yolie Chaves MD Unavailable Phu Luevano MD Unavailable Unavailable Monet Samayoa Unavailable Unavailable Lorene Wheat RN Unavailable Unavailable Eligio Antonio MD PCP Layne Lynn MD Unavailable Laura Gamble RN Unavailable Lucia Brito RN Unavailable Kira Lua MD Unavailable Michelel Kent RN Unavailable Paula Morris Unavailable Unavailable Sadaf Carty Unavailable Unavailable Manuela Urias LPN Unavailable Unavailable Yamilet Don Unavailable Unavailable Jaya Villanueva RN Unavailable Annel Sanchez Unavailable Unavailable Lorene Salvador RN Unavailable Unavailable Lennie Espinal Unavailable Bhumika Guillen MD Unavailable Unavailable Meagan Santos Unavailable Unavailable Alicia Manrique YARD ASSOCIATE Unavailable Reason for Visit * Reason Comments Kidney Evaluation Encounter Details Care Team Description Date Type Department Jenna Mireles RN Kidney Evaluation 11/06/2018 Telephone [facility] [address] [address] Social History Date Tobacco Use Types Packs/Day [...] Jenna Mireles RN - 11/06/2018 1:15 PM DIET AIDE Called and left a voicemail with my contact information in regards to her pre- transplant evaluation. AIDE documented in this encounter Plan of Treatment Not on filedocumented as of this encounter Visit Diagnoses Not on filedocumented in this encounter
--- OUTSIDE RECORDS SUMMARY | 2018-12-05 03:29 | XMS REPORT | Clinical Summary ---
Author Author [facility] Organization [facility] Address Unknown Phone Unavailable Care Team Providers Care Diesel Trailer Mechanic Name Role Phone Brent Jarvis MD Unavailable [...] RN Unavailable Unavailable Lennie Espinal Unavailable Bhumika Guileln MD Unavailable Unavailable Meagan Santos Unavailable Unavailable Alicia Manrique LOCOMOTIVE OBSERVER Unavailable Source Comments Some departments are not documenting in the electronic medical record. If you do not see the information that you expected, contact Release of Information in the Health Information Management department at [phone] for further assistance in locating additional records.[facility] Allergies Comments Active Allergy Reactions Severity [...] (36 mg iron) by mouth 8 tabIndications: iron daily. deficiency anemia Active venlafaxine XR (EFFEXOR Take 150 mg [...] Type Specialty Jenna Mireles RN Kidney Evaluation 11/28/2018 Telephone Transplant Surgery Marcela Shell Financial/Insurance Questions (Benefit Collection ) 11/20/2018 Telephone Transplant Surgery Marcela Shell Financial/Insurance Questions (INSURANCE / FINANCIAL) 11/20/2018 Telephone Transplant Surgery Jenna Mireles RN Kidney Evaluation 11/06/2018 Telephone Transplant Surgery Lucia Brito RN Follow-up Phone Call 10/24/2018 Telephone Transplant Surgery Jenna Mireles RN Kidney Evaluation 10/10/2018 Telephone Transplant Surgery Jenna Mireles RN Kidney Evaluation 09/19/2018 Telephone Transplant Surgery from Last 3 Months [...] 36.7 C (98.1 F) 10/06/2016 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 For more information, please contact: [facility] [address] [facility] [place] [address] Date Inactivated Comments Code Status Date Activated 06/12/2017 6:40 PM Full Code 06/11/2017 5:42 AM Provider has discussed Code Status No, more discussion w/Patient or Family? needed 10/14/2009 4:49 PM Full Code 10/11/2009 11:30 PM 01/09/2009 8:43 PM Full Code 01/07/2009 1:22 AM
--- OUTSIDE RECORDS SUMMARY | 2018-12-05 03:30 | XMS REPORT | Continuity of Care Document ---
Author Author [facility] Organization [facility] Address Unknown Phone Unavailable Allergies Active Description Code Type Severity Reaction Onset Reported/Identified Relationship to Patient Clinical Status Yes [id number] (SULFA (SULFONAMIDE ANTIBIOTICS)) [id number] (SULFA (SULFONAMIDE ANTIBIOTICS)) Mild N/A 10/10/2009 Yes Gentamicin [id number] Drug Allergy Mild N/A 02/10/2018 Yes morphine [id number] Drug Allergy Mild N/A 02/10/2018 Yes amoxicillin [id number] Drug Allergy Unknown N/A 03/25/2018 Yes clavulanic acid [id number] Drug Allergy Unknown N/A 03/25/2018 Medications There [...] TAMMY Ot Z94.0 KIDNEY TRANSPLANT STATUS 02/10/2018 NELLEI MEDRANO, TMAMY Ot N28.9 DISORDER OF KIDNEY AND URETER, [...] TO OTHER ANTIBIOTIC AGENT 02/13/2018 CHRISSIE MATTHEWS CLOTHES MARKER Ot Z88.5 ALLERGY STATUS TO NARCOTIC AGENT [...] APRN Ot Z99.2 DEPENDENCE ON RENAL DIALYSIS 11/14/2018 CHRISSIE MATTHEWS APRN Ot F17.210 NICOTINE DEPENDENCE, CIGARETTES, UNCOMPL 11/14/2018 CHRISSIE MATTHEWS APRN Ot I12.0 HYP CHR KIDNEY DISEASE W STAGE 5 CHR KID 11/14/2018 CHRISSIE MATTHEWS APRN Ot J44.9 CHRONIC OBSTRUCTIVE PULMONARY DISEASE, U 11/14/2018 CHRISSIE MATTHEWS APRN Ot K65.0 GENERALIZED (ACUTE) PERITONITIS 11/14/2018 CHRISSIE MATTHEWS APRN Ot N18.6 END STAGE RENAL DISEASE 11/14/2018 CHRISSIE MATTHEWS APRN Ot R11.2 NAUSEA WITH VOMITING, UNSPECIFIED 11/14/2018 CHRISSIE MATTHEWS APRN Ot Z85.828 PERSONAL HISTORY OF OTHER MALIGNANT NEOP 11/14/2018 CHRISSIE MATTHEWS APRN Ot Z88.0 ALLERGY STATUS TO PENICILLIN 11/14/2018 CHRISSIE MATTHEWS APRN Ot Z88.5 ALLERGY STATUS TO NARCOTIC AGENT STATUS 11/14/2018 CHRISSIE MATTHEWS APRN Ot Z88.8 ALLERGY STATUS TO OTH DRUG/MEDS/BIOL SUB 11/14/2018 CHRISSIE MATTHEWS APRN Ot Z94.0 KIDNEY TRANSPLANT STATUS 11/14/2018 CHRISSIE MATTHEWS APRN Ot Z98.890 OTHER SPECIFIED POSTPROCEDURAL STATES 11/14/2018 CHRISSIE MATTHEWS APRN Ot Z99.2 DEPENDENCE ON RENAL DIALYSIS 11/15/2018 CHRISSIE MATTHEWS APRN Ot F17.210 NICOTINE DEPENDENCE, CIGARETTES, UNCOMPL 11/15/2018 CHRISSIE MATTHEWS APRN Ot I12.0 HYP CHR KIDNEY DISEASE W STAGE 5 CHR KID 11/15/2018 CHRISSIE MATTHEWS APRN Ot J44.9 CHRONIC OBSTRUCTIVE PULMONARY DISEASE, U 11/15/2018 CHRISSIE MATTHEWS APRN Ot K65.0 GENERALIZED (ACUTE) PERITONITIS 11/15/2018 CHRISSIE MATTHEWS APRN Ot N18.6 END STAGE RENAL DISEASE 11/15/2018 CHRISSIE MATTHEWS APRN Ot R11.2 NAUSEA WITH VOMITING, UNSPECIFIED 11/15/2018 CHRISSIE MATTHEWS APRN Ot Z85.828 PERSONAL HISTORY OF OTHER MALIGNANT NEOP 11/15/2018 CHRISSIE MATTHEWS APRN Ot Z88.0 ALLERGY STATUS TO PENICILLIN 11/15/2018 CHRISSIE MATTHEWS APRN Ot Z88.5 ALLERGY STATUS TO NARCOTIC AGENT STATUS 11/15/2018 CHRISSIE MATTHEWS APRN Ot Z88.8 ALLERGY STATUS TO OTH DRUG/MEDS/BIOL SUB 11/15/2018 CHRISSIE MATTHEWS APRN Ot Z94.0 KIDNEY TRANSPLANT STATUS 11/15/2018 CHRISSIE MATTHEWS CLOTHES MARKER Ot Z98.890 OTHER SPECIFIED POSTPROCEDURAL STATES 11/15/2018 CHRISSIE MATTHEWS CLOTHES MARKER Ot Z99.2 DEPENDENCE ON RENAL DIALYSIS 12/05/2018 JONNY WILLIE K Ot 717.7 CHONDROMALACIA PATELLAE 12/05/2018 JONNY DO WILLIE K Ot 719.06 JOINT EFFUSION-L/LEG 12/05/2018 JONNY IMTIAZ GUEVARAA K Ot 719.46 JOINT PAIN-L/LEG 12/05/2018 NELLIE MEDRANO, TAMMY Ot N28.9 DISORDER OF KIDNEY AND URETER, UNSPECIFI 12/05/2018 TAMMY BALLARD MD Ot Z94.0 KIDNEY TRANSPLANT STATUS Procedures There [...] ABO+Rh group AP NRG Transfusion band number [id number] NRG Blood group antibody screen NEGATIVE NRG [...] fluid by manual count 0 % NRG Glucose body fluid - 11/13/18 19:00 Glucose body fluid 114 mg/dL NRG Body fluid total protein measurement - 11/13/18 19:00 Body fluid total protein measurement < g/dL NRG Gram stain microscopy - 11/13/18 19:00 Gram stain microscopy No bacteria seen NRG Bacterial body fluid culture - 11/13/18 19:00 Bacterial body fluid culture NG NRG Complete blood count (CBC) [...] A AND B ANTIGENS BY IA NRG Bacterial blood culture - 11/13/18 20:20 Bacterial blood culture NG NRG Bacterial blood culture - 11/13/18 20:20 Bacterial blood culture NG NRG Encounters ACCT No. Visit Date/Time Discharge Status Pt. Type Provider Facility Loc./Unit Complaint [id number] 12/12/2014 09:52:55 12/12/2014 23:59:59 [facility] Outpatient RENEE GONZALEZ [id number] 11/13/2018 20:05:00 11/14/2018 00:00:00 DIS Emergency CHRISSIE MATTHEWS APRN [facility] ER VOMITTING,ABD PAIN, DIALYSIS PATIENT [id number] 10/07/2018 18:57:00 10/07/2018 23:02:00 DIS Emergency CHRISSIE MATTHEWS APRN [facility] ER R EAR PAIN/DIZZINESS/ NAUSEA [id number] 06/16/2018 15:39:00 06/16/2018 17:59:00 DIS Emergency CHRISSIE MATTHEWS APRN [facility] ER CHEST PAIN [id number] 03/25/2018 09:31:00 03/25/2018 14:37:00 DIS Emergency JEREMIAS OTT MD [facility] ER ABD PAIN, ON DIALYSIS [id number] 02/10/2018 14:15:00 02/10/2018 15:53:00 DIS Emergency CHRISSIE MATTHEWS APRN [facility] ER RT INDEX FINGER LACERATION [id number] 11/13/2015 00:08:00 11/13/2015 23:59:59 CLS Preadmit TAMMY BALLARD MD [facility] LAB TRANSPLANT-KIDNEY [id number] 08/14/2015 10:30:00 11/12/2015 00:01:00 DIS Outpatient TAMMY BALLARD MD [facility] LAB TRANSPLANT-KIDNEY [id number] 06/15/2013 11:59:00 06/15/2013 23:59:59 CLS Outpatient WILLIE FULLER DO [facility] RAD RT KNEE PAIN AND SWELLING [id number] 06/10/2013 05:31:00 06/10/2013 08:00:00 DIS Emergency WILLIE FULLER DO [facility] ER LEG PAIN [id number] 12/05/2018 03:25:00 ACT Emergency WILLIE FULLER DO [facility] ER LEFT HIP PAIN [id number] 02/28/2017 10:54:00 02/28/2017 23:59:00 DIS Outpatient Eligio Antonio
[2018-12-05] MEDS ORDERED: KETOROLAC 30 MG/ML VIAL IVP ONE (04:00)
--- NOTE | 2018-12-05 04:36 | ED Back Pain ---
General Chief Complaint: Hip/Pelvic Problems Stated Complaint: LEFT HIP PAIN Nursing Triage Note: AMBULATORY TO ED WITH C/O LEFT HIP PAIN. STATES WAS LAYING IN BED 3 DAYS AGO AND TURNED OVER AND HIP MADE "POPPING" NOISE 2 TIMES. DESCRIBES PAIN THROBBING AND WORSE AT NOC. ONLY TAKEN TYLENOL FOR PAIN AND APPLIED PAIN PATCHES TO SITE. Nursing Sepsis Screen: No Definite Risk Source of Information: Patient History of Present Illness Date Seen by Provider: Dec 05, 2018 Time Seen by Provider: 03:45 Initial Comments PT ARRIVES VIA POV FROM HOME--DROVE SELF HERE AND WALKED INTO ER ON HER OWN , PT SITS IN CHAIR AND THEN STANDS WITHOUT DIFFICULTY PT STATES 3 DAYS AGO, SHE WAS LAYING IN BED AND "FLIPPED" HER LEG OVER AND IT "POPPED" --STATES HER "HIP" POPPED--POINTS TO LEFT SI JOINT AREA THAT "POPPED " AND IS AREA OF CONTINUED PAIN PAIN RADIATES TO LEFT GROIN AND DOWN LEFT LEG, WITH SOME NUMBNESS AND TINGLING IN LEFT FOOT AND TOES STATES "IT'S DRIVING ME INSANE" HAS NOT SOUGHT CARE UNTIL TONIGHT SYMPTOMS NOT ACTUALLY ANY DIFFERENT TONIGHT BUT GRADUALLY GETTING WORSE OVER 3 DAYS HAS APPLIED ICY HOT PATCH TO LEFT SI JOINT AREA, AND TOOK TYLENOL, OTHERWISE HAS NOT TAKEN ANYTHING ELSE FOR PAIN NO HISTORY OF SIMILAR, BUT DOES HAVE HISTORY OF CHRONIC BACK PAIN NO PROBLEMS WITH BM'S PT IS ON PERITONEAL DIALYSIS AND DOES NOT MAKE URINE Other Comments PCP: DR. SOLIMAN Allergies and Home Medications Allergies Coded Allergies: gentamicin (Verified Allergy, Mild, 02/10/18) morphine (Verified Allergy, Mild, 02/10/18) amoxicillin (Verified Allergy, Unknown, 03/25/18) clavulanic acid (Verified Allergy, Unknown, 03/25/18) Uncoded Allergies: [id number] (SULFA (SULFONAMIDE ANTIBIOTICS)) (Allergy, Mild, 10/10/09) Home Medications Cyclobenzaprine HCl 10 Mg Tablet, 10 MG PO Q8H Prescribed by: WILLIE FULLER on 12/05/18 0520 Hydrocodone Bit/Acetaminophen 1 Tab Tablet, 1-2 TAB PO Q6H FOR PAIN Prescribed by: WILLIE FULLER on 06/10/13 0720 Hydrocodone Bit/Acetaminophen 1 Tab Tab, 1 EACH PO Q4H PRN for PAIN-MODERATE Prescribed by: WILLIE FULLER on 12/05/18521 Hydrocodone/Acetaminophen 1 Each Tablet, 1 EACH PO 4 TIMES A DAY Prescribed by: JEREMIAS OTT on 03/25/18 1421 Methylprednisolone 4 Mg Tab.ds.pk, 4 MG PO UD Prescribed by: WILLIE FULLER on 12/05/18519 Mycophenolate Mofetil 500 Mg Tablet, 500 MG PO BID, (Reported) Tacrolimus Anhydrous 1 Mg Capsule, 2 MG PO BID, (Reported) Tramadol HCl 50 Mg Tablet, 50 MG PO Q4H Prescribed by: WILLIE FULLER on 12/05/18519 Venlafaxine Hcl 75 Mg Tablet, 75 MG PO BID, (Reported) Patient Home Medication List Home Medication List Reviewed: Yes Review of Systems Constitutional: no symptoms reported Gastrointestinal: no symptoms reported; No abdominal pain, No nausea, No vomiting Genitourinary: see HPI Musculoskeletal: see HPI Skin: no symptoms reported; No rash Psychiatric/Neurological: See HPI, Anxiety, Numbness, Paresthesia, Tingling; Denies Weakness Past Iiowlqj-Yrvdno-Ajovbf Hx Patient Social History Alcohol Use: Denies Use Recreational Drug Use: No Smoking Status: Current Everyday Smoker (1 PPD) Type Used: Cigarettes 2nd Hand Smoke Exposure: No Recent Foreign Travel: No Contact w/Someone Who Travel: No Recent Infectious Disease Expo: No Immunizations Up To Date Tetanus Booster (TDap): Unknown Past Medical History Surgeries: Yes (PERITONEAL DIALYSIS CURRENTLY; RENAL TRANSPLANT > 10 YEARS AGO ; X 3; OOPHORECTOMY/USO) Section, Kidney Transplant, Oophorectomy Respiratory: Yes Asthma, COPD Cardiac: Yes Hypertension Neurological: 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 Genitourinary: Yes (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 oz. 73.203982ss; 33.28 BMI Method:Stated General Appearance: WD/WN, Other (VERY DRAMATIC, LAYING ON RIGHT SIDE AND CONSTANTLY RUBBING LEFT SI JOINT AREA, PT HAS ICY HOT PATCH IN PLACE OVER THIS AREA. ) Neck: Normal Inspection Cardiovascular: Regular Rate, Rhythm Respiratory: Normal Breath Sounds Gastrointestinal: Non Tender, Soft Back: Other (TENDERNESS DIRECTLY OVER LEFT SI JOINT; TENDERNESS TO LEFT HIP AND LEFT GROIN AREA. DISTAL MOTOR/SENSORY/VASCULAR INTACT. UNABLE TO PERFORM DTR 'S AND STRAIGHT LEG RAISING AT THIS TIME. ) Extremity: Normal Capillary Refill, Normal Range of Motion, Non Tender, No Calf Tenderness, No Pedal Edema Neurologic/Psychiatric: Alert, Oriented x3, No Motor/Sensory Deficits, see wheeler II- XII Norm as Tested Skin: Normal Color, Warm/Dry; No Rash Procedures/Interventions Suture Size: 5-0 Progress/Results/Core Measures Results/Orders My Orders Orders - WILLIE FULLER DO Ketorolac Injection (Toradol Injection) (12/05/18 04:00) Pelvis With Left Hip 2-3 Views (12/05/18 03:52) Ct Lumbar Spine Wo (12/05/18 03:52) Rx-Cyclobenzaprine Tablet (Rx-Flexeril T (12/05/18 05:25) Medications Given in ED Current Medications Medications Dose Ordered Sig/Patience Route Start Time Stop Time Status Last Admin Dose Admin Ketorolac Tromethamine 30 mg ONCE ONCE IVP 12/05/18 04:00 12/05/18 04:01 DC 12/05/18 04:03 30 MG Vital Signs/I&O 12/05/18 03:32 Temp 97.1 Pulse 85 Resp 16 B/P (MAP) 153/109 (124) O2 Delivery Room Air Blood Pressure Mean: 124 Progress Progress Note : Progress Note PT GIVEN TORADOL AND PT HAS SOME RELIEF OF PAIN--PT LAYING QUIETLY AND APPEARS TO BE MORE COMFORTABLE. PT REPORTS THAT TRAMADOL CAUSES NAUSEA/VOMITING AND HEADACHE PT IS AWARE OF RIGHT RENAL MASS AND IS IN PROCESS OF BEING REFERRED TO UROLOGIST FOR FURTHER EVALUATION. AND SHE IS AWARE THAT IS SUSPICIOUS FOR MALIGNANCY Diagnostic Imaging Comments PELVIS AND RIGHT HIP XRAYS--NO ACUTE PROCESS, PENDING RADIOLOGIST REVIEW CT LUMBAR SPINE--NO ACUTE PROCESS, DEGENERATIVE CHANGES OF LUMBAR SPINE, ESPECIALLY L5-S1 WITHOUT HIGH GRADE STENOSIS. ATROPHIC DIOMEDE KIDNEYS WITH 3.5 CM MASS ON RIGHT KIDNEY CONCERNING FOR MALIGNANCY--PER [facility] VIA FAX @ [phone] Reviewed: Reviewed by Me Departure Impression Primary Impression: Pain of left sacroiliac joint Additional Impressions: RADICULAR PAIN OF LEFT LEG ESRD on peritoneal dialysis Right renal mass Disposition: HOME, SELF-CARE Condition: Stable Departure-Patient Inst. Referrals: [facility] (PCP/Family) Primary Care Physician Patient Instructions: Sacroiliac Joint Pain, Sciatica (DC), Sciatica Exercises Add. Discharge Instructions: MOIST HEAT TO AREA AT 20 MINUTE INTERVALS NO LIFTING OVER 10 LBS, NO TWISTING OR BENDING AT WAIST FOR 1 WEEK FOLLOW UP WITH YOUR DR IN 2-3 DAYS FOR FURTHER CARE All discharge instructions reviewed with patient and/or family. Voiced understanding. Scripts Hydrocodone Bit/Acetaminophen (Hydrocodone/Acetaminophen 5/325mg Tablet) 1 Tab Tab 1 EACH PO Q4H PRN for PAIN-MODERATE MDD 10, #20 TAB Prov: WILLIE FULLER DO 12/05/18 Cyclobenzaprine HCl (Cyclobenzaprine HCl) 10 Mg Tablet 10 MG PO Q8H, #15 TAB Prov: WILLIE FULLER DO 12/05/18 Methylprednisolone (Medrol) 4 Mg Tab.ds.pk 4 MG PO UD, #1 PKG Prov: WILLIE FULLER DO 12/05/18 Tramadol HCl (Ultram) 50 Mg Tablet 50 MG PO Q4H, #20 TAB Prov: WILLIE FULLER DO 12/05/18 WILLIE FULLER DO Dec 05, 2018 04:36
[2018-12-05] MEDS ORDERED: TRAM-42 PO (05:20)
[2018-12-05] MEDS ORDERED: CYCL10TA9 PO (05:20)
[2018-12-05] MEDS ORDERED: METH4TAB PO (05:20)
[2018-12-05] MEDS ORDERED: ACHD5005 PO (05:22)
[2018-12-05] MEDS ORDERED: RX-CYCLOBENZAPRINE 10 MG (FLEXERIL) TAB PPK#3 PO STA (05:25)
[2018-12-05] MEDS ORDERED: RX-CYCLOBENZAPRINE 10 MG (FLEXERIL) TAB PPK#3 PO ONE (05:29)
[2018-12-05 05:35] VITALS: BP 155/108
--- NOTE | 2018-12-05 07:05 | Diagnostic Imaging Report ---
PROCEDURE: CT lumbar spine without contrast. TECHNIQUE: Multiple contiguous axial images were obtained through the lumbar spine without the use of intravenous contrast. Sagittal and coronal reformations were then performed. Auto Exposure Controls were utilized during the CT exam to meet ALARA standards for radiation dose reduction. INDICATION: Left hip pain. FINDINGS: The alignment of the lumbar spine is normal. Vertebral body heights are well-maintained. There is no spondylolysis or spondylolisthesis. No fractures are identified. There is some degenerative disc disease at L5-S1. There is no lytic or sclerotic lesions. There is atrophy of both kidneys. There is a 3.5 cm mass in the right kidney. There are no other focal soft tissue abnormalities. The abdominal aorta is nonaneurysmal. IMPRESSION: Mild lumbar spondylosis with some degenerative disc disease at L5-S1. Atrophy of the [place] kidneys with a 3.5 cm mass in the right kidney highly suspect for malignancy. Recommend clinical correlation. This mass could be further characterized with a contrast-enhanced exam and/or ultrasound. Dictated by: Dictated on workstation # [id number]
--- NOTE | 2018-12-05 08:37 | Diagnostic Imaging Report ---
INDICATION: Laying in bed three days ago, turned over, hip made popping noise. Pain. TECHNIQUE: AP pelvis along with two views left hip 04:38 a.m. CORRELATION STUDY: None FINDINGS: The pelvis demonstrates no evidence for acute fracture. The pectineal lines and obturator rings are maintained. Pubic symphysis and SI joints are unremarkable. Right hip unremarkable. Tubing coiled over the pelvis. Imaging of the left hip demonstrates normal head-acetabular relationship to be maintained. No acute fracture. Bony trabecular pattern intact. Vascular calcification of the low abdominal aorta. IMPRESSION: Negative examination of the pelvis and left hip. Dictated by: Dictated on workstation # [id number]
== END 2018-12-05 05:36 | disposition home or self-care (01) ==
LOC: EDUNIT# 03:23 → ER 03:25
DX: M53.3 Sacrococcygeal disorders, not elsewhere classified (principal); I12.0 Hypertensive chronic kidney disease with stage 5 chronic kidney disease or end stage renal disease; N18.6 End stage renal disease; M79.605 Pain in left leg; N28.89 Other specified disorders of kidney and ureter; J44.9 Chronic obstructive pulmonary disease, unspecified; F17.210 Nicotine dependence, cigarettes, uncomplicated; Z98.890 Other specified postprocedural states; Z85.828 Personal history of other malignant neoplasm of skin; Z99.2 Dependence on renal dialysis; Z94.0 Kidney transplant status; Z87.19 Personal history of other diseases of the digestive system; Z88.0 Allergy status to penicillin; Z88.5 Allergy status to narcotic agent; Z88.8 Allergy status to other drugs, medicaments and biological substances; Z88.1 Allergy status to other antibiotic agents; Z79.52 Long term (current) use of systemic steroids
CPT/HCPCS: 72131; 96374

== ENCOUNTER 2019-04-12 22:49 | Emergency (ER) | payer MEDICARE ==
[~2019-04-12] VITALS: Ht 167.6 cm; Wt 73.5 kg
[~2019-04-12 22:49] MED LIST changes: +CYCL10TA9 PO; +METH4TAB PO; +TRAM-42 PO
--- NOTE | 2019-04-12 23:40 | ED GI ---
General Chief Complaint: Abdominal/GI Problems Stated Complaint: BLEEDING FROM ABD SURGICIAL INCISION;BLOATING Nursing Triage Note: PT HAD PERITONEAL DIALYSIS CATHETER PLACED YESTERDAY AT [place]. PT STATES SHE FEELS LIKE HER ABD IS MORE SWOLLEN AND HAS A HALF DOLLAR SIZED AREA OF DRIED BLOOD ON PERITONEAL DIALYSIS DRESSING. Sepsis Screen: No Definite Risk Exam Limitations: No Limitations History of Present Illness Date Seen by Provider: Apr 12, 2019 Time Seen by Provider: 23:24 Initial Comments Patient presents to ER by private conveyance with her daughter and chief complaint that yesterday Dr. Berumen from [place] put a peritoneal dialysis catheter in her. She's had a small amount of blood staining on her dressing and feels a little distended. No significant pain, fevers, chills. She does not produce urine. She has a history of IgA nephropathy and had a transplant approximately 11 years ago. She had a vein graft in her right arm that failed to take and so she's been using double-lumen dialysis catheter for hemodialysis. She does hemodialysis on Tuesday and plans to change the dressing her dialysis appointment. She tried calling Dr. Berumen but he did not answer. 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 Allergies and Home Medications Allergies Coded Allergies: gentamicin (Verified Allergy, Mild, 02/10/18) morphine (Verified Allergy, Mild, 02/10/18) amoxicillin (Verified Allergy, Unknown, 03/25/18) clavulanic acid (Verified Allergy, Unknown, 03/25/18) Uncoded Allergies: [id number] (SULFA (SULFONAMIDE ANTIBIOTICS)) (Allergy, Mild, 10/10/09) Home Medications Cyclobenzaprine HCl 10 Mg Tablet, 10 MG PO Q8H Prescribed by: WILLIE FULLER on 12/05/18 0520 Hydrocodone Bit/Acetaminophen 1 Tab Tablet, 1-2 TAB PO Q6H FOR PAIN Prescribed by: WILLIE FULLER on 06/10/13 0720 Hydrocodone Bit/Acetaminophen 1 Tab Tab, 1 EACH PO Q4H PRN for PAIN-MODERATE Prescribed by: WILLIE FULLER on 12/05/18 0522 Hydrocodone/Acetaminophen 1 Each Tablet, 1 EACH PO 4 TIMES A DAY Prescribed by: JEREMIAS OTT on 03/25/18 1421 Methylprednisolone 4 Mg Tab.ds.pk, 4 MG PO UD Prescribed by: WILLIE FULLER on 12/05/18 05 Mycophenolate Mofetil 500 Mg Tablet, 500 MG PO BID, (Reported) Tacrolimus Anhydrous 1 Mg Capsule, 2 MG PO BID, (Reported) Tramadol HCl 50 Mg Tablet, 50 MG PO Q4H Prescribed by: WILLIE Mckenna JONNY on 12/05/18519 Venlafaxine Hcl 75 Mg Tablet, 75 MG PO BID, (Reported) Patient Home Medication List Home Medication List Reviewed: Yes Review of Systems Review of Systems Constitutional: No chills, No diaphoresis EENTM: No Blurred Vision, No Double Vision Respiratory: Denies Cough, Denies Shortness of Air Cardiovascular: Denies Chest Pain, Denies Edema Gastrointestinal: See HPI, Abdomen Distended; Denies Abdominal Pain Genitourinary: See HPI (Does not produce urine); Denies Burning, Denies Discharge Musculoskeletal: No back pain, No joint pain Skin: No pruritus, No rash Psychiatric/Neurological: Denies Anxiety, Denies Depressed Past Dyvcqxl-Hcczif-Knwtru Hx Patient Social History Alcohol Use: Denies Use Recreational Drug Use: Yes Type Used: Cigarettes 2nd Hand Smoke Exposure: No Recent Foreign Travel: No Contact w/Someone Who Travel: No Recent Infectious Disease Expo: No Physical Abuse: No Sexual Abuse: No Mistreated: No Fear: No Immunizations Up To Date Tetanus Booster (TDap): Unknown Past Medical History Surgeries: Yes Section, Kidney Transplant, Oophorectomy Respiratory: Yes Asthma, COPD Cardiac: Yes Hypertension Neurological: 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 oz. 73.182232lu; 33.28 BMI Method:Stated General Appearance: WD/WN, no apparent distress HEENT: PERRL/EOMI, normal ENT inspection, pharynx normal Neck: non-tender, full range of motion Respiratory: no respiratory distress, no accessory muscle use, wheezing (bilateral modest) Cardiovascular: normal peripheral pulses, regular rate, rhythm Gastrointestinal: normal bowel sounds, soft, tenderness (mild around the site of insertion.), other (there is a silver dollar sized dried area of serosanguineous discharge on the dressing covered in occlusive cellophane.) Extremities: normal range of motion, normal inspection, normal capillary refill Neurologic/Psychiatric: alert, normal mood/affect, oriented x 3 Skin: normal color, warm/dry Procedures/Interventions Suture Size: 5-0 Progress/Results/Core Measures Results/Orders My Orders Orders - JESUSITA KOCH Abdomen, Flat & Upright/Decub (04/12/19 23:35) Vital Signs/I&O 04/12/19 23:01 Temp 97.6 Pulse 78 Resp 18 B/P (MAP) 188/110 (136) Pulse Ox 93 O2 Delivery Room Air Blood Pressure Mean: 136 Progress Progress Note : Time: 23:42 Progress Note Patient has a history of COPD and says she'll take her albuterol when she gets home. She's not having any acute respiratory complaints. KUB abdomen and pelvis looking for free fluid or air of any significance. Vital signs are normal. Blood work would not likely anything new to this picture. She is not tympanic, tight in her abdomen. Diagnostic Imaging Diagonstic Imaging: Xray Plain Films/CT/US/NM/MRI: abdomen (KUB), pelvis Comments No free air or fluid. Unremarkable bowel gas pattern with some modest stool in the colon. There is a peritoneal dialysis catheter appropriately coiled in the pelvis. Reviewed: Reviewed by Me Departure Impression Primary Impression: Visit for wound check Disposition: 01 HOME, SELF-CARE Condition: Stable Departure-Patient Inst. Decision time for Depature: 01:03 Referrals: [facility] (PCP/Family) Primary Care Physician Patient Instructions: Peritoneal Dialysis (DC) Add. Discharge Instructions: The wound looks okay. X-ray is unremarkable. The catheter seems to be in good position. Follow-up with Dr. Berumen if you have any questions. All discharge instructions reviewed with patient and/or family. Voiced understanding. JESUSITA KOCH Apr 12, 2019 23:40
[2019-04-13 01:08] VITALS: BP 170/95
--- NOTE | 2019-04-13 07:32 | Diagnostic Imaging Report ---
INDICATION: Postop day one peritoneal catheter placement. Weeping wound. TECHNIQUE: Upright and supine frontal views of the abdomen. COMPARISON: 03/25/2018 FINDINGS: Tubing overlies the abdomen and pelvis, consistent with reported history of catheter placement. Sutures are seen in the abdomen. No dilated loops of small bowel are seen. There is moderate stool in the colon. No large collection of free air is seen. There is calcific atherosclerosis. IMPRESSION: 1. Tubing overlying the abdomen consistent with history of peritoneal dialysis. No bowel obstruction or large collection of free air is seen. Dictated by: Dictated on workstation # [id number]
== END 2019-04-13 01:08 | disposition home or self-care (01) ==
LOC: EDUNIT# 22:49 → ER 22:50
DX: T82.838A Hemorrhage due to vascular prosthetic devices, implants and grafts, initial encounter (principal); J44.9 Chronic obstructive pulmonary disease, unspecified; I10 Essential (primary) hypertension; Z85.828 Personal history of other malignant neoplasm of skin; Z99.2 Dependence on renal dialysis; Z88.1 Allergy status to other antibiotic agents; Z88.5 Allergy status to narcotic agent; Z88.0 Allergy status to penicillin; Z94.0 Kidney transplant status
CPT/HCPCS: 74019

== ENCOUNTER 2019-07-04 12:47 | Emergency (ER) | payer MEDICARE, MEDICAID ==
[~2019-07-04] VITALS: Ht 167 cm; Wt 75.1 kg
[2019-07-04 14:22] LABS: BASOPHILS % (AUTO) 0 % (0-10); EOSINOPHILS # (AUTO) 0.3 10^3/uL (0.0-0.3); EOSINOPHILS % (AUTO) 3 % (0-10); HEMATOCRIT 34 % (35-52); HEMOGLOBIN 10.7 G/DL (11.5-16.0); LYMPHOCYTES # (AUTO) 0.7 X 10^3 (1.0-4.0); LYMPHOCYTES % (AUTO) 5 % (12-44); MEAN CORPUSCULAR HEMOGLOBIN 31 PG (25-34); MEAN CORPUSCULAR HGB CONC 32 G/DL (32-36); MEAN CORPUSCULAR VOLUME 98 FL (80-99); MEAN PLATELET VOLUME 9.8 FL (7.4-10.4); MONOCYTES # (AUTO) 0.8 X 10^3 (0.0-1.0); MONOCYTES % (AUTO) 7 % (0-12); NEUTROPHILS # (AUTO) 10.5 X 10^3 (1.8-7.8); NEUTROPHILS % (AUTO) 85 % (42-75); PLATELET COUNT 234 10^3/uL (130-400); RED CELL DISTRIBUTION WIDTH 16.1 % (10.0-14.5); WHITE BLOOD COUNT 12.4 10^3/uL (4.3-11.0)
[2019-07-04 14:27] LABS: INR 1.1 (0.8-1.4); PROTHROMBIN TIME PATIENT 14.6 SEC (12.2-14.7)
[2019-07-04 14:37] LABS: BILIRUBIN,TOTAL 0.7 MG/DL (0.1-1.0); CALCIUM 9.3 MG/DL (8.5-10.1); CREATININE SERUM 10.35 MG/DL (0.60-1.30); POTASSIUM 4.4 MMOL/L (3.6-5.0); TOTAL PROTEIN 6.9 GM/DL (6.4-8.2)
[2019-07-04 14:44] LABS: ANISOCYTOSIS SLIGHT; BAND NEUTROPHILS 2 %; BASOPHILS % (MANUAL) 0 %; EOSINOPHILS % (MANUAL) 2 %; LYMPHOCYTES % (MANUAL) 5 %; MONOCYTES % (MANUAL) 2 %; NEUTROPHILS % (MANUAL) 89 %
--- NOTE | 2019-07-04 14:53 | ED GI ---
General Chief Complaint: Abdominal/GI Problems Stated Complaint: LOWER ABD PAIN Nursing Triage Note: SEVERE ABD PAIN. PT STATES SHE HAS PERITONITIS AND WAS TOLD BY HER DR TO GO TO [place] BUT STATES SHE DOES NOT HAVE A RIDE. PT IS ON DIALYSIS. Sepsis Screen: No Definite Risk Source of Information: Patient (DAYRON OVERTON,MED STUDENT) History of Present Illness Date Seen by Provider: Jul 04, 2019 Time Seen by Provider: 14:35 Initial Comments This 54y/o female presents to the ED with severe abdominal pain which she states is peritonitis. 3wks ago the patient stated having leaking around her peritoneal catheter so she was switched to hemodialysis for the past 3wks. She switched ba ck to peritoneal peritoneal dialysis last night. According to patient, last night she noticed that her peritoneal fluid had a cloud/white color to it when she did her at home peritoneal dialysis. The pain started last night and the patient states that her symptoms are the same as the other times she has had peritonitis. Her construction project mgr at [place] in [place], Dr. Guadarrama, wanted her to go to [place] but the patient says that she did not feel that she would be able to get herself to [place]. She states that she has IgA nephropathy and COPD. She does not see a sports official for her COPD and does not wear O2 at home. She states that she does not urinate at all and is on the list for a kidney transplant. She has been hospitalized for kidney related issues in the past. Patient admits to fever, chills, SOB, productive cough, abdominal pain, and no urine output. Timing/Duration: 1 Day Severity/Quality: Moderate Location: Generalized Abdomen Radiation: No Radiation Activities at Onset: Activity (DAYRON OVERTON,MED STUDENT) Initial Comments See attending physician attestation below. (MERVIN COURTNEY MD) Allergies and Home Medications Allergies Coded Allergies: gentamicin (Verified Allergy, Mild, 02/10/18) morphine (Verified Allergy, Mild, 02/10/18) amoxicillin (Verified Allergy, Unknown, 03/25/18) clavulanic acid (Verified Allergy, Unknown, 03/25/18) tramadol (Verified Allergy, Unknown, 07/04/19) Uncoded Allergies: [id number] (SULFA (SULFONAMIDE ANTIBIOTICS)) (Allergy, Mild, 10/10/09) Home Medications Cyclobenzaprine HCl 10 Mg Tablet, 10 MG PO Q8H Prescribed by: WILLIE FULLER on 12/05/18 0520 Hydrocodone Bit/Acetaminophen 1 Tab Tablet, 1-2 TAB PO Q6H FOR PAIN Prescribed by: WILLIE FULLER on 06/10/13 0720 Hydrocodone Bit/Acetaminophen 1 Tab Tab, 1 EACH PO Q4H PRN for PAIN-MODERATE Prescribed by: WILLIE FULLER on 12/05/18 0522 Hydrocodone/Acetaminophen 1 Each Tablet, 1 EACH PO 4 TIMES A DAY Prescribed by: JEREMIAS OTT on 03/25/18 1421 Methylprednisolone 4 Mg Tab.ds.pk, 4 MG PO UD Prescribed by: WILLIE FULLER on 12/05/18 05 Mycophenolate Mofetil 500 Mg Tablet, 500 MG PO BID, (Reported) Tacrolimus Anhydrous 1 Mg Capsule, 2 MG PO BID, (Reported) Tramadol HCl 50 Mg Tablet, 50 MG PO Q4H Prescribed by: WILLIE FULLER on 12/05/18 05 Venlafaxine Hcl 75 Mg Tablet, 75 MG PO BID, (Reported) Patient Home Medication List Home Medication List Reviewed: Yes (MERVIN COURTNEY MD) Review of Systems Review of Systems Constitutional: chills; No diaphoresis, No dizziness; fever, weakness Respiratory: Cough, Shortness of Air, Wheezing Cardiovascular: Denies Chest Pain, Denies Edema, Denies Lightheadedness Gastrointestinal: Abdomen Distended, Abdominal Pain; Denies Constipated, Denies Diarrhea, Denies Nausea Genitourinary: See HPI Musculoskeletal: no symptoms reported (DAYRON OVERTON MED STUDENT) Past Ddjxqvu-Iosfif-Hsvqod Hx Patient Social History Recreational Drug Use: No Smoking Status: Current Everyday Smoker (1ppd) Type Used: Cigarettes 2nd Hand Smoke Exposure: No Recent Foreign Travel: No Contact w/Someone Who Travel: No Recent Infectious Disease Expo: No Physical Abuse: No Sexual Abuse: No Mistreated: No Fear: No (DAYRON OVERTON MED STUDENT) Immunizations Up To Date Tetanus Booster (TDap): Unknown (DAYRON OVERTON MED STUDENT) Past Medical History Surgeries: Yes Section, Kidney Transplant, Oophorectomy Respiratory: Yes Asthma, COPD Cardiac: Yes Hypertension 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 Genitourinary: Yes Renal Failure, Dialysis Gastrointestinal: Yes (PERITONITIS DX 11/13/18 ) Ulcer Musculoskeletal: Yes Degenerate Disk Disease, Chronic Back Pain Endocrine: No HEENT: No Cancer: Yes Skin Psychosocial: No Integumentary: No Blood Disorders: No (DAYRON OVERTON MED STUDENT) Physical Exam Vital Signs Vital Signs - First Documented 07/04/19 07/04/19 13:30 16:21 Temp 37.7 Pulse 95 Resp 16 B/P (MAP) 178/109 (132) Pulse Ox 88 O2 Delivery Room Air O2 Flow Rate 2.00 (MERVIN COURTNEY MD) Vital Signs Capillary Refill : Less Than 3 Seconds (DAYRON OVERTON MED STUDENT) Height/Weight/BMI Height: 5'6.00" Weight: 162lbs. oz. 73.707126er; 26.00 BMI Method:Stated General Appearance: WD/WN, mild distress HEENT: PERRL/EOMI Respiratory: chest non-tender, lungs clear, no respiratory distress, decreased breath sounds, wheezing Cardiovascular: regular rate, rhythm, no edema, no gallop, no JVD Peripheral Pulses: 2+ Dorsalis Pedis (R), 2+ Left Dors-Pedis (L), 2+ Radial Pulses (R), 2+ Radial Pulses (L) Gastrointestinal: normal bowel sounds, no organomegaly, no pulsatile mass, guarding, tenderness Extremities: normal range of motion, non-tender, normal inspection, no pedal edema, no calf tenderness, normal capillary refill Neurologic/Psychiatric: no motor/sensory deficits, alert, normal mood/affect, oriented x 3 Skin: normal color, warm/dry Lymphatic: no adenopathy (DAYRON OVERTON MED STUDENT) Focused Exam Lactate Level 07/04/19 13:55: Lactic Acid Level 1.21 (MERVIN COURTNEY MD) Lactic Acid Level Laboratory Tests Test 07/04/19 13:55 Lactic Acid Level 1.21 MMOL/L (0.50-2.00) (MERVIN COURTNEY MD) Procedures/Interventions Suture Size: 5-0 (DAYRON OVERTON MED STUDENT) Progress/Results/Core Measures Results/Orders Lab Results Laboratory Tests Test 07/04/19 13:55 Range/Units White Blood Count 12.4 H 4.3-11.0 10^3/uL Red Blood Count 3.44 L 4.35-5.85 10^6/uL Hemoglobin 10.7 L 11.5-16.0 G/DL Hematocrit 34 L 35-52 % Mean Corpuscular Volume 98 80-99 FL Mean Corpuscular Hemoglobin 31 25-34 PG Mean Corpuscular Hemoglobin Concent 32 32-36 G/DL Red Cell Distribution Width 16.1 H 10.0-14.5 % Platelet Count 234 130-400 10^3/uL Mean Platelet Volume 9.8 7.4-10.4 FL Neutrophils (%) (Auto) 85 H 42-75 % Lymphocytes (%) (Auto) 5 L 12-44 % Monocytes (%) (Auto) 7 0-12 % Eosinophils (%) (Auto) 3 0-10 % Basophils (%) (Auto) 0 0-10 % Neutrophils # (Auto) 10.5 H 1.8-7.8 X 10^3 Lymphocytes # (Auto) 0.7 L 1.0-4.0 X 10^3 Monocytes # (Auto) 0.8 0.0-1.0 X 10^3 Eosinophils # (Auto) 0.3 0.0-0.3 10^3/uL Basophils # (Auto) 0.0 0.0-0.1 10^3/uL Neutrophils % (Manual) 89 % Lymphocytes % (Manual) 5 % Monocytes % (Manual) 2 % Eosinophils % (Manual) 2 % Basophils % (Manual) 0 % Band Neutrophils 2 % Anisocytosis SLIGHT Prothrombin Time 14.6 12.2-14.7 SEC INR Comment 1.1 0.8-1.4 Activated Partial Thromboplast Time 32 24-35 SEC Sodium Level 140 135-145 MMOL/L Potassium Level 4.4 3.6-5.0 MMOL/L Chloride Level 100 98-107 MMOL/L Carbon Dioxide Level 26 21-32 MMOL/L Anion Gap 14 5-14 MMOL/L Blood Urea Nitrogen 42 H 7-18 MG/DL Creatinine 10.35 H 0.60-1.30 MG/DL Estimat Glomerular Filtration Rate 4 BUN/Creatinine Ratio 4 Glucose Level 98 70-105 MG/DL Lactic Acid Level 1.21 0.50-2.00 MMOL/L Calcium Level 9.3 8.5-10.1 MG/DL Corrected Calcium 9.3 8.5-10.1 MG/DL Total Bilirubin 0.7 0.1-1.0 MG/DL Aspartate Amino Transf (AST/SGOT) 13 5-34 U/L Alanine Aminotransferase (ALT/SGPT) 7 0-55 U/L Alkaline Phosphatase 118 40-136 U/L C-Reactive Protein High Sensitivity 9.03 H 0.00-0.50 MG/DL Total Protein 6.9 6.4-8.2 GM/DL Albumin 4.0 3.2-4.5 GM/DL (MERVIN COURTNEY MD) My Orders Orders - MERVIN COURTNEY MD Cbc With Automated Diff (07/04/19 14:15) Comprehensive Metabolic Panel (07/04/19 14:15) Blood Culture (07/04/19 14:15) Protime With Inr (07/04/19 14:15) Partial Thromboplastin Time (07/04/19 14:15) Chest 1 View, Ap/Pa Only (07/04/19 14:15) Ed Iv/Invasive Line Start (07/04/19 14:15) Ed Iv/Invasive Line Start (07/04/19 14:15) Vital Signs Adult Sepsis Patie Q15M (07/04/19 14:15) O2 (07/04/19 14:15) Remove Rings In Anticipation O (07/04/19 14:15) Lactic Acid Analyzer (07/04/19 14:15) Hs C Reactive Protein (07/04/19 14:15) Manual Differential (07/04/19 13:55) Fentanyl Injection (Sublimaze Injection (07/04/19 15:45) Meropenem (Merrem 1000 Mg) (07/04/19 15:45) Albuterol/Ipra Inhalation Soln (Duoneb I (07/04/19 16:00) Svn Small Volume Nebulizer (07/04/19 15:52) Vancomycin Injection (Vancomycin Injecti (07/04/19 16:15) Fentanyl Injection (Sublimaze Injection (07/04/19 16:45) Albuterol Pre-Mix Nebs (Rt) (Proventil (07/04/19 16:36) Albuterol Pre-Mix Nebs (Rt) (Proventil (07/04/19 16:39) Svn Small Volume Nebulizer (07/04/19 16:42) (MERVIN COURTNEY MD) Medications Given in ED Current Medications Medications Dose Ordered Sig/Patience Route Start Time Stop Time Status Last Admin Dose Admin Albuterol Sulfate 2.5 mg ONCE ONCE INH 07/04/19 16:39 07/04/19 16:43 DC 07/04/19 16:39 2.5 MG Albuterol/ Ipratropium 3 ml ONCE ONCE INH 07/04/19 16:00 07/04/19 16:01 DC 07/04/19 16:20 3 ML Fentanyl Citrate 50 mcg ONCE ONCE IVP 07/04/19 15:45 07/04/19 15:46 DC 07/04/19 16:08 50 MCG Fentanyl Citrate 75 mcg ONCE ONCE IVP 07/04/19 16:45 07/04/19 16:46 DC 07/04/19 16:51 75 MCG Meropenem 1000 mg/ Sterile Water 20 ml @ 240 mls/hr ONCE ONCE IV 07/04/19 15:45 07/04/19 15:49 DC 07/04/19 16:31 240 MLS/HR (MERVIN COURTNEY MD) Vital Signs/I&O 07/04/19 07/04/19 07/04/19 07/04/19 13:30 16:08 16:21 16:39 Temp 37.7 37.7 Pulse 95 Resp 16 B/P (MAP) 178/109 (132) Pulse Ox 88 92 92 O2 Delivery Room Air Nasal Cannula Nasal Cannula O2 Flow Rate 2.00 2.00 07/04/19 17:54 Temp 36.7 Pulse 93 Resp 18 B/P (MAP) 164/90 (132) Pulse Ox 93 O2 Delivery Nasal Cannula O2 Flow Rate 3.00 (MERVIN COURTNEY MD) Blood Pressure Mean: 132 POS Departure Impression Primary Impression: Peritonitis Additional Impressions: End stage renal failure on dialysis COPD exacerbation Disposition: SHT-TRM HOSP Condition: Improved Transfer Transfer Reason: Exceeds level of care Time Spoke to Accepting Phy: 16:00 Transfer Progress Notes Care accepted [facility] Rocha at [facility]. Transfer Time: 17:48 [facility]: [facility] Method of Transfer: EMS (MERVIN COURTNEY MD) Departure-Patient Inst. Referrals: [facility] (PCP/Family) Primary Care Physician This patient was interviewed and examined by me personally along with Dayron Overton, MS 3. I agree with MS 3 history, physical, assessment, and documentation with the following additions and corrections. This 54-year-old woman presents to the emergency room with concerns about possible peritonitis. She has end-stage renal failure and is a patient of Dr. Guadarrama at [place]. She typically does peritoneal dialysis but switch to hemodialysis 3 weeks ago because she was having some leaking around her peritoneal dialysis catheter. Yesterday she attempted to change back to the peritoneal catheter and began having intense pain. She was concerned about developing peritonitis. She also reported the fluid from the catheter was cloudy white. She also appears to be having a COPD exacerbation and has wheezing. She is afebrile at present but reports subjective fevers at home. Exam: Gen.: Alert, oriented, in mild to moderate distress from pain, especially with movement, cough, or palpation HEENT normocephalic atraumatic Heart: Regular rate and rhythm without murmur Lungs: Clear to auscultation bilaterally with normal effort Abdomen: Soft, decreased bowel sounds, diffusely tender to palpation even with light percussion, nondistended, peritoneal dialysis catheter in place Skin: Warm and dry without rashes Neuropsych: Alert, oriented, no focal deficits Patient was found to have a mild leukocytosis and an elevated CRP. By clinical exam she has signs concerning for peritonitis. Blood cultures were obtained. Culture from the dialysis catheter was not obtained because the catheter Iodine in them. Empiric antibiotic coverage with Zosyn and vancomycin has been initiated. Patient was also found to be hypoxic and wheezing. She is being treated with nasal cannula at 3 L/m. She received 2 DuoNeb treatments with improvement in wheezing. Pain has been managed with fentanyl injections. Case was discussed with Dr. Rocha, hospitalist at [facility]. He graciously accepts the transfer of this patient. (MERVIN COURTNEY MD) Copy Copies To 1: YAZ CARMONA MICAH,MED STUDENT Jul 04, 2019 14:53 MERVIN BECKHAM MD Jul 04, 2019 17:27 POS
--- NOTE | 2019-07-04 15:03 | Diagnostic Imaging Report ---
INDICATION: Abdominal pain and peritonitis. TIME OF EXAM: 2:49 p.m. COMPARISON: Comparison is made with prior chest from 11/13/2018. FINDINGS: Right-sided dialysis line has tip overlying the right atrium. The lungs are clear. No infiltrates are seen. There is no effusion or pneumothorax. IMPRESSION: No acute cardiopulmonary process is detected. Dictated by: Dictated on workstation # [id number]
[2019-07-04] MEDS ORDERED: MEROPENEM 1,000 MG in WATER (STERILE) FOR INJECTION 20 ML IV ONE (15:45)
[2019-07-04] MEDS ORDERED: fentaNYL INJECTION 100 MCG/2 ML AMP IVP ONE ×2 (15:45→16:45)
[2019-07-04] MEDS ORDERED: RT-ALBUTEROL/IPRATROPIUM 3 ML (DUONEB) VIAL INH ONE (16:00)
[2019-07-04] MEDS ORDERED: VANCOMYCIN INJECTION 1,000 MG in NS (IVPB) 250 ML IV SCH (16:15)
[2019-07-04] MEDS ORDERED: RT-ALBUTEROL SULF 2.5 MG/3 ML PRE-MIX VIAL ONE (16:36)
[2019-07-04] MEDS ORDERED: RT-ALBUTEROL SULF 2.5 MG/3 ML PRE-MIX VIAL INH ONE (16:39)
--- NOTE | 2019-07-04 16:50 | NUR ---
PHARMACY NOTIFIED OF NEEDING VANCO.
[2019-07-04 17:54] VITALS: BP 164/90
== END 2019-07-04 17:48 | disposition short-term general hospital (02) ==
LOC: EDUNIT# 12:47 → ER 12:47
DX: K65.9 Peritonitis, unspecified (principal); I12.0 Hypertensive chronic kidney disease with stage 5 chronic kidney disease or end stage renal disease; N18.6 End stage renal disease; J44.1 Chronic obstructive pulmonary disease with (acute) exacerbation; F17.210 Nicotine dependence, cigarettes, uncomplicated; Z85.828 Personal history of other malignant neoplasm of skin; Z99.2 Dependence on renal dialysis; Z88.5 Allergy status to narcotic agent; Z88.1 Allergy status to other antibiotic agents; Z88.0 Allergy status to penicillin; Z88.8 Allergy status to other drugs, medicaments and biological substances; Z79.52 Long term (current) use of systemic steroids
CPT/HCPCS: 36415; 71045; 80053; 83605; 85007; 85027; 85610; 85730; 86141; 87040; 94640; 96365; 96367; 96375; 96376

== ENCOUNTER → 2020-04-24 | Outpatient (CLI) | payer MEDICARE, MEDICAID ==
--- NOTE | 2020-04-24 16:19 | Diagnostic Imaging Report ---
PROCEDURE: US Renal Bilateral. TECHNIQUE: Multiple real-time grayscale images were obtained over the kidneys in various projections bilaterally. 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 Patient also has right renal transplant. FINDINGS: [place] right kidney is surgically absent. Right renal transplant measures 8.2 x 3.7 x 3.7 cm. There is a cyst in the central right kidney measuring approximately 15 mm in size. There is also a shadowing echogenic structure in lower pole of right renal transplant measuring approximately 17 mm x 9 mm. No hydronephrosis is detected. Left kidney is very hard to see and appears to be atrophic with cortical thinning and increased cortical echogenicity. This measures approximately 6.4 x 3.1 x 2.8 cm. No hydronephrosis is detected. Bladder is decompressed. IMPRESSION: 1. Atrophic left kidney with surgically absent [place] right kidney. 2. Right renal transplant contains a small cyst as well as a nonobstructing renal calculus. No hydronephrosis is identified. Dictated by: Dictated on workstation # [id number]
== END ==
LOC: RAD 14:36
PROVIDERS: ATTEND Specialist
DX: N64.1 Fat necrosis of breast (principal); N26.1 Atrophy of kidney (terminal); N20.0 Calculus of kidney; N28.1 Cyst of kidney, acquired; Z94.0 Kidney transplant status
CPT/HCPCS: 76770

== ENCOUNTER 2020-04-25 07:23 | Emergency (ER) | payer MEDICAID, MEDICARE ==
[~2020-04-25] VITALS: Ht 167 cm; Wt 85.0 kg
--- NOTE | 2020-04-25 07:33 | ED EENT ---
History of Present Illness General Chief Complaint: Eye Problems Stated Complaint: R EYE ISSUES History of Present Illness Date Seen by Provider: Apr 25, 2020 Time Seen by Provider: 07:33 Initial Comments 55-year-old female presents due to a "squiggly or floater in her right eye. Patient reports is there sometimes not all the time. Patient was scheduled to get dialysis this morning and they would not allow her to have dialysis until she had it evaluated. She does not have any feeling of foreign bodies. She denies any pain. She denies any itching or drainage. Patient wants a limited examination but it not to be cleared for dialysis. Patient reports that she first noticed it last night. That it Comes and goes. She did flush her eyes to make sure there was no foreign body. Allergies and Home Medications Allergies Coded Allergies: gentamicin (Verified Allergy, Mild, 02/10/18) morphine (Verified Allergy, Mild, 02/10/18) amoxicillin (Verified Allergy, Unknown, 03/25/18) clavulanic acid (Verified Allergy, Unknown, 03/25/18) tramadol (Verified Allergy, Unknown, 07/04/19) Uncoded Allergies: [id number] (SULFA (SULFONAMIDE ANTIBIOTICS)) (Allergy, Mild, 10/10/09) Home Medications Cyclobenzaprine HCl 10 Mg Tablet, 10 MG PO Q8H Prescribed by: WILLIE FULLER on 12/05/18519 Hydrocodone Bit/Acetaminophen 1 Tab Tablet, 1-2 TAB PO Q6H FOR PAIN Prescribed by: WILLIE FULLER on 06/10/13 0720 Hydrocodone Bit/Acetaminophen 1 Tab Tab, 1 EACH PO Q4H PRN for PAIN-MODERATE Prescribed by: WILLIE FULLER on 12/05/18 05 Hydrocodone/Acetaminophen 1 Each Tablet, 1 EACH PO 4 TIMES A DAY Prescribed by: JEREMIAS OTT on 03/25/18 1421 Methylprednisolone 4 Mg Tab.ds.pk, 4 MG PO UD Prescribed by: WILLIE FULLER on 12/05/18519 Mycophenolate Mofetil 500 Mg Tablet, 500 MG PO BID, (Reported) Tacrolimus Anhydrous 1 Mg Capsule, 2 MG PO BID, (Reported) Tramadol HCl 50 Mg Tablet, 50 MG PO Q4H Prescribed by: WILLIE FULLER on 12/05/18519 Venlafaxine Hcl 75 Mg Tablet, 75 MG PO BID, (Reported) Patient Home Medication List Home Medication List Reviewed: Yes Review of Systems Review of Systems Constitutional: no symptoms reported Eyes: See HPI Ears: No Symptoms Reported Nose: no symptoms reported Mouth: no symptoms reported Throat: no symptoms reported Respiratory: no symptoms reported Past Rboluft-Ocitqu-Fllupj Hx Past Med/Social Hx: Reviewed Nursing Past Med/Soc Hx Patient Social History Type Used: Cigarettes 2nd Hand Smoke Exposure: No Recent Foreign Travel: No Contact w/Someone Who Travel: No Immunizations Up To Date Tetanus Booster (TDap): Unknown Past Medical History Surgeries: Yes Section, Kidney Transplant, Oophorectomy Respiratory: Yes Asthma, COPD Cardiac: Yes Hypertension Neurological: No 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 oz. 73.588754rm; 26.00 BMI Method:Stated General Appearance: WD/WN, no apparent distress Eyes: right eye other (no abnormalities detected on funduscopic exam or physical exam); bilateral eye normal inspection, bilateral eye PERRL, bilateral eye EOMI Neck: full range of motion Cardiovascular: normal peripheral pulses, regular rate, rhythm Neurologic/Psychiatric: no motor/sensory deficits, alert, normal mood/affect, oriented x 3 Skin: normal color, warm/dry Procedures/Interventions Suture Size: 5-0 Progress/Results/Core Measures Results/Orders Vital Signs/I&O 04/25/20 04/25/20 07:36 07:51 Temp 36.5 36.5 Pulse 77 77 Resp 18 18 B/P (MAP) 161/101 (121) 161/101 (121) Pulse Ox 94 94 O2 Delivery Room Air Room Air Progress Progress Note : Time: 07:42 Progress Note No noticeable findings on exam. Patient wanted a limited exam does not feel there is a need for flourosceine. Patient only presented because she had a be cleared for dialysis. She is safe for dialysis. She reports she'll follow-up with her eye doctor. Patient is stable and discharged home Departure Impression Primary Impression: Vitreous floaters of right eye Disposition: HOME, SELF-CARE Condition: Stable Departure-Patient Inst. Referrals: [facility] (PCP/Family) Primary Care Physician Patient Instructions: Floaters in the Eye Add. Discharge Instructions: Follow-up with your dolphin trainer for further evaluation and dilated eye exam Your okay to go to dialysis All discharge instructions reviewed with patient and/or family. Voiced understanding. ISA ROTHMAN DO Apr 25, 2020 07:33
[2020-04-25 07:51] VITALS: BP 161/101
--- NOTE | 2020-04-25 07:52 | NUR ---
MADISON FROM THE [facility] CALLED TO ASK ABOUT THE PT. MADISON SAID "THE PT TOLD ME THAT SHE HAD A SUDDEN ONSET OF LOSS OF VISION AND FELT LIKE HER EYE WAS FILLING UP WITH BLOOD." THE PT NEVER TOLD DR. ROTHMAN OR MYSELF OF THIS AND WHEN ASKED ABOUT IT THE PT DENIED EVER TELLING MADISON THIS.
== END 2020-04-25 07:51 | disposition home or self-care (01) ==
LOC: EDUNIT# 07:23 → ER 07:27
DX: H43.391 Other vitreous opacities, right eye (principal); J44.9 Chronic obstructive pulmonary disease, unspecified; G89.29 Other chronic pain; M54.9 Dorsalgia, unspecified; Z99.2 Dependence on renal dialysis; Z88.1 Allergy status to other antibiotic agents; Z88.5 Allergy status to narcotic agent; Z88.0 Allergy status to penicillin; Z79.52 Long term (current) use of systemic steroids; Z85.828 Personal history of other malignant neoplasm of skin; Z94.0 Kidney transplant status; Z79.891 Long term (current) use of opiate analgesic
CPT/HCPCS: 99282

== ENCOUNTER → 2020-07-10 | Outpatient (CLI) | payer MEDICARE ==
[~2020-07-10] MED LIST changes: +CLN.1T; -CLON0.1T; +RT-ALBUTEROL SULF 2.5 MG/3 ML PRE-MIX VIAL INH ONE
== END ==
LOC: RT 15:30
PROVIDERS: ATTEND Nurse Practitioner Family
DX: J44.9 Chronic obstructive pulmonary disease, unspecified (principal)
CPT/HCPCS: 94060; 94726; 94729

== ENCOUNTER → 2020-10-07 | Outpatient (CLI) | payer MEDICARE ==
[~2020-10-07] MED LIST changes: -RT-ALBUTEROL SULF 2.5 MG/3 ML PRE-MIX VIAL INH ONE
--- NOTE | 2020-10-07 15:55 | Diagnostic Imaging Report ---
INDICATION: Routine screening. COMPARISON: No prior mammograms are available for comparison. TECHNIQUE: 2D and 3D bilateral screening mammography was performed with CAD. FINDINGS: Scattered fibroglandular densities are identified bilaterally. There are benign calcifications in both breasts. No mass or malignant appearing microcalcifications are seen. The axillae are unremarkable. IMPRESSION: No mammographic features suspicious for malignancy are identified. ACR BI-RADS Category 2: Benign findings. Result letter will be mailed to the patient. Note: At least 10% of breast cancer is not imaged by mammography. Dictated by: Dictated on workstation # [id number]
== END ==
LOC: RAD 09:50
PROVIDERS: ATTEND Nurse Practitioner
DX: Z12.31 Encounter for screening mammogram for malignant neoplasm of breast (principal)
CPT/HCPCS: 77063; 77067

== ENCOUNTER 2020-10-28 05:44 | Outpatient (RCR) | payer MEDICARE ==
[~2020-10-28] VITALS: Ht 167.6 cm; Wt 87.1 kg
[~2020-10-28 05:44] MED LIST changes: -LISI40TA; +LISI40TA9
[2020-10-28] MEDS ORDERED: CLN.1T PO (13:03)
[2020-10-28] MEDS ORDERED: CINA30TA2 PO (13:10)
[2020-10-28] MEDS ORDERED: FERR210T PO (13:10)
[2020-10-28] MEDS ORDERED: HYDR-700 PO (13:10)
[2020-10-28] MEDS ORDERED: GABA-486 PO (13:10)
[2020-11-18] MEDS ORDERED: FAMO-119 PO (09:42)
== END 2021-01-26 | disposition home or self-care (01) ==
LOC: PREOP 05:44
PROVIDERS: ATTEND Surgery
DX: Z01.818 Encounter for other preprocedural examination (principal)

== ENCOUNTER 2020-11-18 07:15 | Day surgery (SDC) | payer MEDICARE ==
[~2020-11-18] VITALS: Ht 167.6 cm; Wt 87.1 kg
[~2020-11-18 07:15] MED LIST changes: +CINA30TA2 PO; +CLN.1T PO; +FERR210T PO; +GABA-486 PO; +HYDR-700 PO
[2020-11-18] MEDS ORDERED: LACTATED RINGERS 1,000 ML IV STA (07:29)
[2020-11-18] MEDS ORDERED: HURRICAINE EXT TUBE (BENZOCAINE) XX PRN (07:30)
[2020-11-18] MEDS ORDERED: LACTATED RINGERS 1,000 ML IV ONE (07:34)
[2020-11-18 07:46] VITALS: BP 159/106
[2020-11-18] MEDS ORDERED: PROPOFOL INJECTION 0 ML IV ONE (08:33)
[2020-11-18] MEDS ORDERED: PROPOFOL INJECTION 50 ML IV ONE (09:11)
[2020-11-18 09:30] VITALS: BP 132/71
[2020-11-18 09:35] VITALS: BP 177/87
[2020-11-18] MEDS ORDERED: HURRICAINE EXT TUBE (BENZOCAINE) ONE (09:35)
[2020-11-18] MEDS ORDERED: ONDANSETRON 4 MG/2 ML (SDV) Z0FRAN ONE (09:35)
--- NOTE | 2020-11-18 09:40 | Progress Note-Post Operative ---
Post-Operative Progess Note Surgeon (s)/Video Camera Operator (s) Surgeon PRABHA MOREL DO Video Camera Operator: na Pre-Operative Diagnosis gerd, screening Post-Operative Diagnosis duodenitis, gastric polyp, polyps, diverticulosis Procedure & Operative Findings Date of Procedure 11/18/20 Procedure Performed/Findings egd c biopsies, colonoscopy c hot bx polypectomy x 6 and snare polypectomy x 1 Anesthesia Type per immigration case manager Estimated Blood Loss Estimated blood loss (mL): scant Specimens/Packing Specimens Removed duodenum, antrum, cecal polyp, ascending colon polyp x 2, transverse colon polyp x 2, sigmoid polyp x 2 PRABHA MOREL DO Nov 18, 2020 09:40
[2020-11-18] MEDS ORDERED: FAMO-119 PO (09:42)
--- NOTE | 2020-11-18 09:42 | Discharge Inst-Simple/Standard ---
Discharge Inst-Standard Discharge Medications New, Converted or Re-Newed RX: Transmitted to Pharmacy Patient Instructions/Follow Up Plan of Care/Instructions/FU: 2-3 weeks jose Activity as Tolerated: Yes Discharge Diet: Regular Diet PRABHA MOREL DO Nov 18, 2020 09:42
[2020-11-18 09:45] VITALS: BP 177/87
[2020-11-18] MEDS ORDERED: ONDANSETRON 4 MG/2 ML (SDV) Z0FRAN IVP ONE (09:45)
--- NOTE | 2020-11-18 09:59 | Anesthesia-General Post-Op ---
MAC Patient Condition Mental Status/LOC: Same as Preop Cardiovascular: Satisfactory Nausea/Vomiting: Absent Respiratory: Satisfactory Pain: Controlled Complications: Absent Post Op Complications Complications None Follow Up Care/Instructions Patient Instructions None needed. Anesthesiology Discharge Order Discharge Order Patient is doing well, no complaints, stable vital signs, no apparent adverse anesthesia problems. No complications reported per nursing. BEN EM CRNA Nov 18, 2020 09:59
[2020-11-18 10:11] VITALS: BP 155/88
--- NOTE | 2020-11-18 11:49 | OPERATIVE REPORT ---
DATE OF SERVICE: 11/18/2020 PREOPERATIVE DIAGNOSES: Gastroesophageal reflux disease and screening colonoscopy. POSTOPERATIVE DIAGNOSES: Duodenitis, colon polyps, and diverticulosis. PROCEDURES PERFORMED: EGD with biopsies, colonoscopy with hot biopsy polypectomy x6 and snare polypectomy x1. SURGEON: Prabha Leonard DO. ANESTHESIA: Per PLUG MAKER. ESTIMATED BLOOD LOSS: Scant. COMPLICATIONS: None. INDICATIONS FOR PROCEDURE: The patient is a 55-year-old female with GERD symptoms and needing screening colonoscopy. She understands the risks and benefits of the procedure and wished to proceed with procedure. Consent was signed in the chart. DESCRIPTION OF PROCEDURE: The patient was taken to the endoscopy suite and placed in a left recumbent position. Timeout was performed. Scope was inserted in the mouth, esophagus, stomach and into the duodenum without difficulty. Second portion of duodenum had no polyps, masses or ulcerations. Scope was slowly retracted back to the first portion of the duodenum, which had some erythematous changes consistent with duodenitis. Biopsy was obtained. Scope was then slowly retracted back into the stomach, where it was further insufflated. In the antrum, there were no polyps, masses or ulcerations. Biopsy of the antrum was obtained. Scope was retroflexed noting a couple of small benign-appearing polyps. No other pathology noted. Scope was returned to its normal position, slowly withdrawn until the distal esophagus. Biopsy of the GE junction was obtained. No polyps, masses or ulcerations. Scope was slowly retracted back until completely removed. The patient then had digital rectal exam was performed. There were no palpable polyps, masses or ulcerations. Some internal hemorrhoids. The scope was inserted in the rectum, advanced all the way to cecum with minimal difficulty. Prep was adequate with irrigation and suction. There was a small polyp in the cecum, which hot biopsy polypectomy was performed. Scope was then continuously retracted back. In the ascending colon, there were two polyps near the hepatic flexure, which hot biopsy polypectomy was performed on these. Scope was then continuously retracted back until the transverse colon, which two other polyps were present, which hot biopsy polypectomy was performed on these two polyps. Scope was then continuously retracted back. No polyps, masses or ulcerations in the descending colon. In the sigmoid colon, minimal amount of diverticulosis was present. There was also a polyp, which snare polypectomy was performed. Scope was then continuously retracted back. In the distal portion of the sigmoid, another small polyp was present, which hot biopsy polypectomy was performed. Scope was then continuously retracted back into the rectum, where it was also retroflexed noting no other pathology except for internal hemorrhoids. Scope was returned to its normal position and slowly withdrawn until completely removed. The patient tolerated the procedure well without any complications. She was taken to the recovery room in a stable condition. RECOMMENDATIONS: The patient was started on Pepcid 20 mg daily. We will await biopsy results. The patient will likely need repeat colonoscopy in one year due to significant number of polyps. We would also recommend a high-fiber diet due to diverticulosis. Job ID: [id number] DocumentID: [id number] Dictated Date: 11/18/2020 09:46:25 Medical Instrument Cable Fabricator Date: 11/18/2020 11:48:15 Dictated By: PRABHA LEONARD DO
== END 2020-11-18 10:20 | disposition home or self-care (01) ==
LOC: ENDO 07:15
PROVIDERS: ATTEND Surgery
DX: Z12.11 Encounter for screening for malignant neoplasm of colon (principal); D12.2 Benign neoplasm of ascending colon; D12.0 Benign neoplasm of cecum; D12.5 Benign neoplasm of sigmoid colon; D12.3 Benign neoplasm of transverse colon; K21.00 Gastro-esophageal reflux disease with esophagitis, without bleeding; K57.30 Diverticulosis of large intestine without perforation or abscess without bleeding; K29.80 Duodenitis without bleeding; I10 Essential (primary) hypertension; F41.9 Anxiety disorder, unspecified; J44.9 Chronic obstructive pulmonary disease, unspecified; F17.210 Nicotine dependence, cigarettes, uncomplicated; Z79.899 Other long term (current) drug therapy; Z88.2 Allergy status to sulfonamides; Z88.1 Allergy status to other antibiotic agents; Z88.5 Allergy status to narcotic agent; Z88.8 Allergy status to other drugs, medicaments and biological substances
CPT/HCPCS: 88305

== ENCOUNTER → 2021-04-13 | Outpatient (CLI) | payer MEDICARE ==
[~2021-04-13] MED LIST changes: +FAMO-119 PO; +RT-ALBUTEROL SULF 2.5 MG/3 ML PRE-MIX VIAL INH ONE
== END ==
LOC: RT 11:00
PROVIDERS: ATTEND Internal Medicine Nephrology
DX: J44.9 Chronic obstructive pulmonary disease, unspecified (principal)
CPT/HCPCS: 94060; 94726; 94729

== ENCOUNTER 2021-09-19 15:56 | Emergency (ER) | payer MEDICARE ==
[~2021-09-19] VITALS: Ht 170.6 cm; Wt 91.6 kg
[~2021-09-19 15:56] MED LIST changes: +CYCL10TA25 PO; -CYCL10TA9 PO; -RT-ALBUTEROL SULF 2.5 MG/3 ML PRE-MIX VIAL INH ONE
[2021-09-19 17:21] LABS: BASOPHILS % (AUTO) 0 % (0-10); EOSINOPHILS % (AUTO) 0 % (0-10); HEMATOCRIT 31 % (35-52); HEMOGLOBIN 9.6 g/dL (11.5-16.0); LYMPHOCYTES # (AUTO) 0.3 10^3/uL (1.0-4.0); LYMPHOCYTES % (AUTO) 4 % (12-44); MEAN CORPUSCULAR HEMOGLOBIN 32 pg (25-34); MEAN CORPUSCULAR HGB CONC 31 g/dL (32-36); MEAN CORPUSCULAR VOLUME 103 fL (80-99); MEAN PLATELET VOLUME 9.7 fL (9.0-12.2); MONOCYTES # (AUTO) 0.3 10^3/uL (0.0-1.0); MONOCYTES % (AUTO) 4 % (0-12); NEUTROPHILS # (AUTO) 7.3 10^3/uL (1.8-7.8); NEUTROPHILS % (AUTO) 92 % (42-75); PLATELET COUNT 230 10^3/uL (130-400)
[2021-09-19 17:32] LABS: CALCIUM 10.1 MG/DL (8.5-10.1)
[2021-09-19 17:36] LABS: CREATININE SERUM 2.35 MG/DL (0.60-1.30)
[2021-09-19 17:42] LABS: ANISOCYTOSIS SLIGHT; BAND NEUTROPHILS 0 %; BASOPHILS % (MANUAL) 0 %; EOSINOPHILS % (MANUAL) 0 %; LYMPHOCYTES % (MANUAL) 5 %; MONOCYTES % (MANUAL) 4 %; NEUTROPHILS % (MANUAL) 91 %
[2021-09-19] MEDS ORDERED: APIXABAN 5 MG (ELIQUIS) TABLET PO ONE (18:15)
--- NOTE | 2021-09-19 19:22 | ED Lower Extremity ---
General Chief Complaint: Lower Extremity Stated Complaint: POSSIBLE BLOOD CLOT IN LEFT LEG Nursing Triage Note: patient states last month- kidney transplant. biopsy of kidney past , released from hospital yesterday. noticed last night left leg swollen, tight. obvious difference in size between rt and left leg. Shortness of breath due to asthma and COPD worsened since surgery. Source: patient Exam Limitations: no limitations History of Present Illness Date Seen by Provider: Sep 19, 2021 Time Seen by Provider: 16:26 Initial Comments This 56-year-old woman presents to the emergency room with complaints of left leg swelling and discomfort. The swelling is diffuse throughout the left lower extremity. She has some associated paresthesias. She has no history of DVT but is concerned about DVT at this time. She has history of renal transplant about 1 month ago and had a renal biopsy performed last . Leg symptoms were noted yesterday. No chest pain or SOA. Allergies and Home Medications Allergies Coded Allergies: gentamicin (Verified Allergy, Mild, 02/10/18) morphine (Verified Allergy, Mild, 02/10/18) amoxicillin (Verified Allergy, Unknown, 03/25/18) clavulanic acid (Verified Allergy, Unknown, 03/25/18) tramadol (Verified Allergy, Unknown, 07/04/19) Uncoded Allergies: [id number] (SULFA (SULFONAMIDE ANTIBIOTICS)) (Allergy, Mild, 10/10/09) Patient Home Medication List Home Medication List Reviewed: Yes Apixaban (Eliquis) 5 Mg Tablet, 5 MG PO BID Prescribed by: MERVIN CALLOWAY on 09/19/211922 Cinacalcet HCl (Sensipar) 30 Mg Tablet, 30 MG PO QID, (Reported) Entered as Reported by: TITA ALEXIS on 10/28/20 1310 Clonidine HCl (Clonidine HCl) 0.1 Mg Tablet, 0.1 MG PO HS, (Reported) Entered as Reported by: TITA ALEXIS on 10/28/20 1303 Famotidine (Pepcid) 20 Mg Tablet, 20 MG PO DAILY Prescribed by: PRABHA MOREL on 11/18/20 0942 Ferric Citrate (Auryxia) 210 Mg Tablet, 840 MG PO AC, (Reported) Entered as Reported by: TITA ALEXIS on 10/28/20 1310 Gabapentin (Gabapentin) 100 Mg Capsule, 100 MG PO DAILY, (Reported) Entered as Reported by: TITA ALEXIS on 10/28/20 1310 Hydroxyzine HCl (Hydroxyzine HCl) 25 Mg Tablet, 25 MG PO HS, (Reported) Entered as Reported by: TITA ALEXIS on 10/28/20 1310 Review of Systems Constitutional: no symptoms reported EENTM: no symptoms reported Respiratory: no symptoms reported Cardiovascular: see HPI Gastrointestinal: no symptoms reported Genitourinary: see HPI : No Musculoskeletal: no symptoms reported Skin: no symptoms reported Psychiatric/Neurological: No Symptoms Reported Past Nixguyd-Mtncys-Ukultm Hx Patient Social History Tobacco Use?: No Use of E-Cig and/or Vaping dev: No Substance use?: No Alcohol Use?: No Pt feels they are or have been: No Immunizations Up To Date Tetanus Booster (TDap): Unknown Influenza Vaccine Up-to-Date: Yes; Up-to-Date First/Initial COVID19 Vaccinat: YUE AND YUE DECEMBER 24 Seasonal Allergies Seasonal Allergies: Yes Past Medical History Surgery/Hospitalization HX: [facility], LEFT KIDNEY LAST MONTH. 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, Menopausal Sexually Transmitted Disease: No HIV/AIDS: No Genitourinary: Yes Renal Failure (IgA nephropathy), Dialysis Gastrointestinal: Yes (PERITONITIS DX 11/13/18 ) Ulcer Musculoskeletal: Yes Degenerate Disk Disease, Chronic Back Pain Endocrine: No HEENT: No Loss of Vision: Bilateral Hearing Impairment: Denies Cancer: Yes Skin Psychosocial: No Integumentary: No Blood Disorders: No Physical Exam Vital Signs Vital Signs - First Documented 09/19/21 16:09 Temp 36.5 Pulse 87 Resp 24 B/P (MAP) 199/98 (131) Pulse Ox 99 O2 Delivery Room Air Capillary Refill : Less Than 3 Seconds Height, Weight, BMI Height: 5'6.00" Weight: 162lbs. oz. 73.194526py; 31.00 BMI Method:Stated General Appearance: WD/WN, no apparent distress HEENT: normal ENT inspection Neck: normal inspection Cardiovascular: regular rate, rhythm, no murmur Respiratory: lungs clear, normal breath sounds, no respiratory distress Legs: left leg pain, left leg soft tissue tenderness, left leg swelling Knees: left knee swelling Ankles: left ankle swelling Feet: left foot swelling, left foot other (pedal pulses not palpable but both dorsal and posterior pulses detected by doppler) Neurologic/Psychiatric: staff rn II-XII nml as tested, no motor/sensory deficits, alert, normal mood/affect, oriented x 3 Skin: normal color, warm/dry, other (left thigh warmer than right) Procedures/Interventions Suture Size: 5-0 Progress/Results/Core Measures Results/Orders Lab Results Laboratory Tests Test 09/19/21 17:14 Range/Units White Blood Count 8.0 4.3-11.0 10^3/uL Red Blood Count 2.98 L 3.80-5.11 10^6/uL Hemoglobin 9.6 L 11.5-16.0 g/dL Hematocrit 31 L 35-52 % Mean Corpuscular Volume 103 H 80-99 fL Mean Corpuscular Hemoglobin 32 25-34 pg Mean Corpuscular Hemoglobin Concent 31 L 32-36 g/dL Red Cell Distribution Width 15.2 H 10.0-14.5 % Platelet Count 230 130-400 10^3/uL Mean Platelet Volume 9.7 9.0-12.2 fL Immature Granulocyte % (Auto) 1 % Neutrophils (%) (Auto) 92 H 42-75 % Lymphocytes (%) (Auto) 4 L 12-44 % Monocytes (%) (Auto) 4 0-12 % Eosinophils (%) (Auto) 0 0-10 % Basophils (%) (Auto) 0 0-10 % Neutrophils # (Auto) 7.3 1.8-7.8 10^3/uL Lymphocytes # (Auto) 0.3 L 1.0-4.0 10^3/uL Monocytes # (Auto) 0.3 0.0-1.0 10^3/uL Eosinophils # (Auto) 0.0 0.0-0.3 10^3/uL Basophils # (Auto) 0.0 0.0-0.1 10^3/uL Immature Granulocyte # (Auto) 0.0 0.0-0.1 10^3/uL Neutrophils % (Manual) 91 % Lymphocytes % (Manual) 5 % Monocytes % (Manual) 4 % Eosinophils % (Manual) 0 % Basophils % (Manual) 0 % Band Neutrophils 0 % Anisocytosis SLIGHT Macrocytosis SLIGHT D-Dimer 2.39 H 0.00-0.49 UG/ML Sodium Level 141 135-145 MMOL/L Potassium Level 5.0 3.6-5.0 MMOL/L Chloride Level 113 H 98-107 MMOL/L Carbon Dioxide Level 16 L 21-32 MMOL/L Anion Gap 12 5-14 MMOL/L Blood Urea Nitrogen 29 H 7-18 MG/DL Creatinine 2.35 H 0.60-1.30 MG/DL Estimat Glomerular Filtration Rate 24 BUN/Creatinine Ratio 12 Glucose Level 138 H 70-105 MG/DL Calcium Level 10.1 8.5-10.1 MG/DL My Orders Orders - MERVIN COURTNEY MD Basic Metabolic Panel (09/19/21 16:26) Cbc With Automated Diff (09/19/21 16:26) Fibrin Degradation Products (09/19/21 16:26) Manual Differential (09/19/21 17:14) Apixaban Tablet (Eliquis Tablet) (09/19/21 18:15) Medications Given in ED Vital Signs/I&O 09/19/21 09/19/21 16:09 19:29 Temp 36.5 36.9 Pulse 87 80 Resp 24 20 B/P (MAP) 199/98 (131) 162/101 Pulse Ox 99 100 O2 Delivery Room Air Room Air Blood Pressure Mean: 131 Progress Progress Note : Progress Note Eliquis 10 mg administered for treatment of presumptive DVT. US order for confirmation to be done in the morning. Rx provided to fill if positive result. Departure Impression Primary Impression: Leg edema, left Additional Impressions: Elevated d-dimer Suspected DVT (deep vein thrombosis) Disposition: 01 HOME, SELF-CARE Condition: Stable Departure-Patient Inst. Decision time for Depature: 19:21 Referrals: [facility] (PCP/Family) Primary Care Physician Patient Instructions: Deep Vein Thrombosis (Blood Clots in the Legs) (DC) Add. Discharge Instructions: Return to the hospital before 8:00 tomorrow morning. [facility] at the ER desk to have your ultrasound performed. Bring your ultrasound order form with you. Stay at the hospital until you receive the results of your ultrasound. If DVT is present, fill the Eliquis prescription at [facility]. If there is no DVT, call [facility] to cancel the prescription. Call with questions or concerns. Return to the ER if you have worsening symptoms. All discharge instructions reviewed with patient and/or family. Voiced understanding. Scripts Apixaban (Eliquis) 5 Mg Tablet 5 MG PO BID for 30 Days, #74 TAB TAKE 2 TABLETS BID X 7 DAYS, THEN 1 TABLET BID Prov: MERVIN COURTNEY MD 09/19/21 Copy Copies To 1: YAZ CARMONA JOSHUA T MD Sep 19, 2021 19:22
[2021-09-19] MEDS ORDERED: APIX5TAB PO (19:23)
[2021-09-19 19:29] VITALS: BP 162/101
== END 2021-09-19 19:27 | disposition home or self-care (01) ==
LOC: EDUNIT# 15:56 → ER 16:01
DX: R60.0 Localized edema (principal); R79.89 Other specified abnormal findings of blood chemistry; J44.9 Chronic obstructive pulmonary disease, unspecified; I10 Essential (primary) hypertension; Z86.718 Personal history of other venous thrombosis and embolism
CPT/HCPCS: 36415; 80048; 85007; 85027; 85379

== ENCOUNTER → 2021-09-20 | Outpatient (CLI) | payer MEDICARE ==
[~2021-09-20] MED LIST changes: +APIX5TAB PO
--- NOTE | 2021-09-20 11:02 | Diagnostic Imaging Report ---
EXAMINATION: US Lower Extremity Venous Duplex Left. TECHNIQUE: Multiple real-time grayscale images were obtained over the left lower extremity in various projections. Additional spectral analysis and color Doppler duplex images were also obtained. HISTORY: Swelling COMPARISON: None available. FINDINGS: There is deep venous thrombosis of the superficial femoral vein in its mid to distal portions in the calf veins. There is superficial thrombosis in the calf as well. IMPRESSION: 1. Deep venous thrombosis of the mid and distal superficial femoral vein and calf veins. 2. Superficial thrombosis in the calf. Dictated by: Dictated on workstation # [id number]
== END ==
LOC: RAD 08:14
PROVIDERS: ATTEND Family Medicine
DX: I82.412 Acute embolism and thrombosis of left femoral vein (principal); I82.462 Acute embolism and thrombosis of left calf muscular vein

== ENCOUNTER 2021-11-25 06:59 | Outpatient (CLI) | payer MEDICARE ==
[2021-11-25 07:10] VITALS: BP 145/90
[2021-11-25] MEDS ORDERED: TBO-FILGRASTIM 300 MCG/0.5 ML (GRANIX) SQ ONE (07:15)
== END 2021-11-25 07:30 ==
LOC: SDC 06:59
PROVIDERS: ATTEND Internal Medicine
DX: Z51.81 Encounter for therapeutic drug level monitoring (principal)
CPT/HCPCS: 96372; J1447

== ENCOUNTER → 2023-01-17 | Outpatient (CLI) | payer MEDICARE, OTHER ==
--- NOTE | 2023-01-17 19:52 | Diagnostic Imaging Report ---
INDICATION: Right knee pain COMPARISON: None available. TECHNIQUE: 4 radiographs of the right knee dated 01/17/2023. FINDINGS: No acute fracture or dislocation. No destructive osseous process. Mild medial joint space narrowing. The lateral compartment is well-maintained. Chondrocalcinosis of the medial greater than lateral meniscus. No knee joint effusion. Minimal background vascular calcifications. IMPRESSION: No acute fracture with mild degenerative changes present. 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 Dictated by: Dictated on workstation # [id number]
== END ==
LOC: RAD 15:08
PROVIDERS: ATTEND Family Medicine
DX: Z12.31 Encounter for screening mammogram for malignant neoplasm of breast (principal); M17.11 Unilateral primary osteoarthritis, right knee
CPT/HCPCS: 73564